=== PATIENT | male | born 1970 | race Caucasian/White ===

== ENCOUNTER 2018-02-17 01:01 | Emergency (ER) | payer MEDICAID ==
[2018-02-17 01:09] VITALS: BP 113/81
--- NOTE | 2018-02-17 01:13 | ER Report ---
History and Physical Time Seen By MD: 01:06 HPI/ROS CHIEF COMPLAINT: Foot swelling HISTORY OF PRESENT ILLNESS: Patient is a 47-year-old male who presents to the emergency department with complaint of left foot pain. Patient states that he was doing some moving earlier this morning. He states that while he was moving boxes he tripped over a carpet and felt a pop and snap in the dorsal aspect of his left foot. Patient states he is painful weightbearing but is able to ambulate. Patient states that he has not taken anything for pain. He states he has a past medical history for COPD that is oxygen dependent as well as type II diabetes. REVIEW OF SYSTEMS: Respiratory: No cough, no dyspnea. Cardiovascular: No chest pain, no palpitations. Gastrointestinal: No vomiting, no abdominal pain. Musculoskeletal: Left foot pain Allergies: Coded Allergies: shellfish derived (Verified Allergy, Severe, THROAT SWELLING, 02/17/18) montelukast (Verified Allergy, Intermediate, SINUS INFECTIONS, 02/17/18) Home Meds Reported Medications Furosemide (LASIX) 20 Mg Tablet, 1 TAB PO QDAY, TAB 02/17/18 Metformin Hcl (METFORMIN HCL) 1,000 Mg Tablet, 1 TAB PO BID, TAB 02/17/18 Tiotropium [place] (SPIRIVA) 18 Mcg/Cap Inh, 18 MCG INH QDAY, INH 02/17/18 Albuterol Sulfate 0.083% (ALBUTEROL SULFATE 0.083%) 2.5 Mg/3 Ml Vial.neb, 2.5 MG INH PRN, INH 02/17/18 Albuterol Sulfate 90 Mcg/Act (PROAIR HFA 90 MCG/ACT) 8.5 Gm Hfa.aer.ad, 2 PUFF IH Q4-6H Y for SHORTNESS OF BREATH, INHALER 02/17/18 Past Medical/Surgical History COPD, type II diabetes Constitutional Vital Sign - Last 24 Hours 02/17/18 01:09 Temp 97.9 Pulse 93 Resp 24 Pulse Ox 92 O2 Delivery Nasal Cannula Physical Exam General appearance: alert no distress Left ankle: There is no significant swelling. There is no obvious deformity to the ankle. There is mild tenderness to the lateral malleolus. Ankle joint is stable and there is no tenderness over the achilles tendon. The foot is noted for swelling and severe onychomycosis. Patient is tender along the 1st and 2nd metatarsal area. Neurologic exam: The patient has normal sensation distal to the injury. Vascular exam: Decreased capillary refill to both feet Patient has bilateral 4+ pitting edema to both lower extremities. DIFFERENTIAL DIAGNOSIS: After history and physical exam differential diagnosis was considered for ankle injury including sprain, fracture, dislocation and soft tissue injury. Medical Decision Making EKG/Imaging Imaging FACILITY: [facility] [place] PATIENT NAME: Neo Diaz : 1970 MR: [id number] V: [id number] EXAM DATE: ORDERING PHYSICIAN: TETE MARIN TECHNOLOGIST: [place] [facility] [place] Neo Diaz : 1970 Visit/Account:[id number] Date of Sevice: 02/17/2018 INDICATION: Pain and swelling for months. EXAM DATE: 02/17/2018 1:13 AM COMPARISON: None. FINDINGS: 3 views left foot, 3 views left ankle. Mineralization is normal. No acute alignment abnormality or fracture. Diffuse soft tissue swelling. No radiopaque foreign body or soft tissue emphysema. IMPRESSION: Diffuse soft tissue swelling with no acute osseous abnormality of the right ankle and foot. Report Dictated By: Mandeep Gutierrez MD at 02/17/2018 1:48 AM Report E-Signed By: Mandeep Gutierrez MD at 02/17/2018 1:50 AM WSN:[id number] FACILITY: [facility] [place] PATIENT NAME: Neo Diaz : 1970 MR: [id number] V: [id number] EXAM DATE: ORDERING PHYSICIAN: TETE MARIN TECHNOLOGIST: Location: [facility] [place] Patient: Neo Diaz : 1970 Visit/Account:[id number] Date of Sevice: 02/17/2018 INDICATION: Pain and swelling for months. EXAM DATE: 02/17/2018 1:13 AM COMPARISON: None. FINDINGS: 3 views left foot, 3 views left ankle. Mineralization is normal. No acute alignment abnormality or fracture. Diffuse soft tissue swelling. No radiopaque foreign body or soft tissue emphysema. IMPRESSION: Diffuse soft tissue swelling with no acute osseous abnormality of the right ankle and foot. Report Dictated By: Mandeep Gutierrez MD at 02/17/2018 1:48 AM Report E-Signed By: Mandeep Gutierrez MD at 02/17/2018 1:50 AM WSN:[id number] ED Course/Re-evaluation ED Course 02/17/2018 1:13:01 am and at this time will be to x-ray the foot and ankle. Decision to Disposition Date: Feb 17, 2018 Decision to Disposition Time: 02:07 Depart Departure Latest Vital Signs Vital Signs Date Time Temp Pulse Resp B/P (MAP) Pulse Ox O2 Delivery O2 Flow Rate FiO2 02/17/18 01:09 97.9 93 24 92 Nasal Cannula Impression: Primary Impression: Foot sprain Condition: Improved Disposition: HOME OR SELF-CARE Patient Instructions: Foot Sprain (ED) Problem Qualifiers Primary Impression: Foot sprain Encounter type: initial encounter Laterality: left Qualified Codes: S93.602A - Unspecified sprain of left foot, initial encounter TETE MARIN MD Feb 17, 2018 01:13
[2018-02-17] MEDS ORDERED: APAP/HYDROCODONE 325/5 TAB PO ONE (01:15)
[2018-02-17] MEDS ORDERED: METF-421 PO (01:40)
[2018-02-17] MEDS ORDERED: FURO20TA19 PO (01:40)
[2018-02-17] MEDS ORDERED: ALBU8.5H IH (01:40)
[2018-02-17] MEDS ORDERED: TIO18R INH (01:40)
[2018-02-17] MEDS ORDERED: ALBU2.5V36 INH (01:40)
--- NOTE | 2018-02-17 01:54 | RADIOLOGY IMAGING REPORT ---
FACILITY: [facility] [place] PATIENT NAME: Neo Diaz : 1970 MR: [id number] V: [id number] EXAM DATE: ORDERING PHYSICIAN: TETE MARIN TECHNOLOGIST: Location: [facility] Patient: Neo Diaz : 1970 Visit/Account:[id number] Date of Sevice: 02/17/2018 INDICATION: Pain and swelling for months. EXAM DATE: 02/17/2018 1:13 AM COMPARISON: None. FINDINGS: 3 views left foot, 3 views left ankle. Mineralization is normal. No acute alignment abnormality or fr acture. Diffuse soft tissue swelling. No radiopaque foreign body or soft tissue emphysema. IMPRESSION: Diffuse soft tissue swelling with no acute osseous abnormality of the right ankle and fo ot. Report Dictated By: Mandeep Gutierrez MD at 02/17/2018 1:48 AM Report E-Signed By: Mandeep Gutierrez MD at 02/17/2018 1:50 AM WSN:[id number]
--- NOTE | 2018-02-17 01:55 | RADIOLOGY IMAGING REPORT ---
FACILITY: [facility] - [place] PATIENT NAME: Neo Diaz : 1970 MR: [id number] V: [id number] EXAM DATE: ORDERING PHYSICIAN: TETE MARIN TECHNOLOGIST: [place] [facility] [place] : 1970 Visit/Account:[id number] Date of Sevice: 02/17/2018 INDICATION: Pain and swelling for months. EXAM DATE: 02/17/2018 1:13 AM COMPARISON: None. FINDINGS: 3 views left foot, 3 views left ankle. Mineralization is normal. No acute alignment abnormality or fr acture. Diffuse soft tissue swelling. No radiopaque foreign body or soft tissue emphysema. IMPRESSION: Diffuse soft tissue swelling with no acute osseous abnormality of the right ankle and fo ot. Report Dictated By: Mandeep Gutierrez MD at 02/17/2018 1:48 AM Report E-Signed By: Mandeep Gutierrez MD at 02/17/2018 1:50 AM WSN:[id number]
[2018-02-17] MEDS ORDERED: oxyCODONE/ACETAMIN 5/325MG TH 2 TAB/BOTTLE PO ONE (02:10)
== END 2018-02-17 02:18 | disposition home or self-care (01) ==
LOC: ER 01:08
DX: S93.602A Unspecified sprain of left foot, initial encounter (principal)
CPT/HCPCS: 99283

== ENCOUNTER → 2018-02-24 | Outpatient (CLI) | payer MEDICAID ==
[~2018-02-24] MED LIST: ALBU2.5V36 INH; ALBU8.5H IH; FURO20TA19 PO; METF-421 PO; ONDA4TAB PO; POTA99TA6 PO; PRED20TA6 PO; TIO18R INH
[2018-02-24 11:44] LABS: PLATELET COUNT, AUTOMATED 302 K/uL (150-450)
[2018-02-24 11:46] LABS: LDL CHOLESTEROL 58 mg/dl
== END ==
LOC: LAB 11:12
PROVIDERS: ATTEND Nurse Practitioner Psychiatric/Mental Health
DX: E13.65 Other specified diabetes mellitus with hyperglycemia (principal); E78.5 Hyperlipidemia, unspecified; R60.9 Edema, unspecified; I10 Essential (primary) hypertension
CPT/HCPCS: 36415; 82040; 82247; 82310; 82374; 82435; 82465; 82565; 82947; 83036; 83718; 84075; 84132; 84155; 84295; 84450; 84460; 84478; 84520; 85025

== ENCOUNTER 2018-02-27 23:03 | Emergency (ER) | payer MEDICAID ==
[~2018-02-27 23:03] MED LIST changes: -ONDA4TAB PO; -POTA99TA6 PO; -PRED20TA6 PO
[2018-02-27] MEDS ORDERED: POTA99TA6 PO (23:18)
--- NOTE | 2018-02-27 23:23 | ER Report ---
History and Physical Time Seen By MD: 23:22 Hx. of Stated Complaint: patient states he has been having abdominal pain, diarrhea, patient states feels like he can't get enough water, and is feeling a little short of breath. HPI/ROS CHIEF COMPLAINT: Epigastric pain, difficulty breathing. Rescue diarrhea HISTORY OF PRESENT ILLNESS: 47-year-old male with O2 dependent COPD on 4 L, epigastric pain and diarrhea. Patient notes mild nausea. Patient's been having diarrhea for 3 days. He's had increased shortness of breath for 3 days. He notes left upper quadrant and left lower quadrant pain. Patient denies recent travel exposure to ill contacts or consumption of bad food. He notes recently that he's been on 2 courses of antibiotics for treatment of cellulitis. The diarrhea could be Clostridium difficile. Patient notes no fever, chills or productive cough associated with shortness of breath. REVIEW OF SYSTEMS: Respiratory: As above Cardiovascular: No chest pain, no palpitations. Gastrointestinal: As above Musculoskeletal: No back pain. Allergies: Coded Allergies: shellfish derived (Verified Allergy, Severe, THROAT SWELLING, 02/27/18) montelukast (Verified Allergy, Intermediate, SINUS INFECTIONS, 02/27/18) Home Meds Active Scripts Prednisone (PREDNISONE) 20 Mg Tablet, 20 MG PO QDAY for reduce lung inflammation for 7 Days, #5 Prov:RUBÉN STRONG DO 02/28/18 Ondansetron (ZOFRAN ODT) 4 Mg Tab.rapdis, 4 MG PO every 6 hours Y for NAUSEA/ VOMITING, #10 TAB TAKE 1 TABLET BY MOUTH EVERY 12 HOURS Prov:RUBÉN STRONG DO 02/28/18 Reported Medications Potassium Gluconate (POTASSIUM) 99 Mg Tablet, PO QDAY 02/27/18 Furosemide (LASIX) 20 Mg Tablet, 2 TAB PO QDAY, TAB 02/17/18 Metformin Hcl (METFORMIN HCL) 1,000 Mg Tablet, 1 TAB PO BID, TAB 02/17/18 Tiotropium [place] (SPIRIVA) 18 Mcg/Cap Inh, 18 MCG INH QDAY, INH 02/17/18 Albuterol Sulfate 0.083% (ALBUTEROL SULFATE 0.083%) 2.5 Mg/3 Ml Vial.neb, 2.5 MG INH PRN, INH 02/17/18 Albuterol Sulfate 90 Mcg/Act (PROAIR HFA 90 MCG/ACT) 8.5 Gm Hfa.aer.ad, 2 PUFF IH Q4-6H Y for SHORTNESS OF BREATH, INHALER 02/17/18 Past Medical/Surgical History O2 dependent COPD, type II diabetes on metformin Reviewed Nurses Notes: Yes Old Medical Records Reviewed: Yes Constitutional Vital Sign - Last 24 Hours 02/27/18 02/27/18 02/27/18 02/27/18 22:30 22:30 23:14 23:14 Pulse 87 Resp 18 Pulse Ox 91 O2 Delivery Nasal Cannula Room Air O2 Flow Rate 4.0 3.0 02/27/18 02/27/18 02/27/18 02/27/18 23:18 23:30 23:33 23:39 Pulse 90 91 94 Resp 18 B/P (MAP) 144/91 (108) Pulse Ox 94 98 02/28/18 02/28/18 02/28/18 02/28/18 00:00 00:18 00:30 00:33 Pulse ??? 95 Resp 12 12 B/P (MAP) 127/68 (87) 134/75 (94) Pulse Ox 87 93 02/28/18 02/28/18 02/28/18 02/28/18 00:48 01:00 01:03 01:08 Pulse 98 97 103 Resp 21 13 B/P (MAP) 114/66 (82) Pulse Ox 92 95 Physical Exam Vital signs stable, afebrile, pulse ox normal General Appearance: The patient is alert, has no immediate need for airway protection and no current signs of toxicity. Mild respiratory distress, mild discomfort, skin warm, dry, pink HEENT: Pupils equal and round no injection. TMs normal, oropharynx without redness or exudate Respiratory: Chest is non tender, lungs are clear to auscultation. Faint expiratory wheezing, poor inspiratory effort Cardiac: regular rate and rhythm Gastrointestinal: Abdomen is soft mild epigastric tenderness, no rebound or guarding, no masses, bowel sounds normal. Musculoskeletal: Neck: Neck is supple and non tender. No lymphadenopathy, no JVD Extremities have full range of motion and are non tender. No edema, no cellulitis, no calf tenderness Skin: No rashes or lesions. DIFFERENTIAL DIAGNOSIS: After history and physical exam differential diagnosis was considered for abdominal pain including but not limited to appendicitis, cholecystitis, gastritis, gastritis, food poisoning, viral syndrome, Clostridium difficile and urinary tract infection. Additionally,shortness of breath including but not limited to pulmonary infectious process, COPD, asthma, pulmonary embolus and congestive heart failure. Medical Decision Making Data Points Result Diagram: 02/27/18 5507 02/27/18 9577 Laboratory Hematology Test 02/27/18 23:07 02/27/18 23:57 Urine Color Yellow Urine Clarity Clear Urine pH 5.0 pH (4.8-9.5) Urine Specific [place] 1.018 Urine Protein Negative mg/dL (NEGATIVE) Urine Glucose (UA) Negative mg/dL (NEGATIVE) Urine Ketones Negative mg/dL (NEGATIVE) Urine Blood Small (NEGATIVE) Urine Nitrite Negative (NEGATIVE) Urine Bilirubin Negative (NEGATIVE) Urine Urobilinogen Negative mg/dL (0.2-1.9) Urine Leukocyte Esterase Negative (NEGATIVE) Urine RBC 1 /HPF (0-2/HPF) Urine WBC 1 /HPF (0-5/HPF) Urine Squamous Epithelial Cells Few /LPF (</=FEW) Urine Transitional Epithelial Cells Few /LPF (NONE-FEW) Urine Bacteria Negative /HPF (NONE-FEW) Urine Mucus Few /HPF (NONE-FEW) Red Blood Count 5.20 M/uL (4.00-5.60) Mean Corpuscular Volume 83.3 fL (80.0-96.0) Mean Corpuscular Hemoglobin 28.0 pg (26.0-33.0) Mean Corpuscular Hemoglobin Concent 33.6 g/dL (32.0-36.0) Red Cell Distribution Width 16.0 % (11.5-14.5) Mean Platelet Volume 7.9 fL (7.2-11.1) Neutrophils (%) (Auto) 70.4 % (39.4-72.5) Lymphocytes (%) (Auto) 20.8 % (17.6-49.6) Monocytes (%) (Auto) 5.3 % (4.1-12.4) Eosinophils (%) (Auto) 3.0 % (0.4-6.7) Basophils (%) (Auto) 0.5 % (0.3-1.4) Nucleated RBC Relative Count (auto) 0.1 /100WBC Neutrophils # (Auto) 7.1 K/uL (2.0-7.4) Lymphocytes # (Auto) 2.1 K/uL (1.3-3.6) Monocytes # (Auto) 0.5 K/uL (0.3-1.0) Eosinophils # (Auto) 0.3 K/uL (0.0-0.5) Basophils # (Auto) 0.0 K/uL (0.0-0.1) Nucleated RBC Absolute Count (auto) 0.01 K/uL Sodium Level 143 mmol/L (137-145) Potassium Level 3.7 mmol/L (3.5-5.0) Chloride Level 100 mmol/L (98-107) Carbon Dioxide Level 34 mmol/L (22-30) Blood Urea Nitrogen 15 mg/dl (9-21) Creatinine 1.10 mg/dl (0.66-1.25) Glomerular Filtration Rate Calc > 60.0 Random Glucose 195 mg/dl (75-110) Calcium Level 8.9 mg/dl (8.4-10.2) Total Bilirubin 0.5 mg/dl (0.2-1.3) Aspartate Amino Transf (AST/SGOT) 38 U/L (0-35) Alanine Aminotransferase (ALT/SGPT) 39 U/L (0-56) Alkaline Phosphatase 97 U/L (0-126) Troponin I < 0.012 ng/ml B-Type Natriuretic Peptide 6 pg/ml (0-100) Total Protein 8.4 g/dl (6.3-8.2) Albumin 4.2 g/dl (3.5-5.0) Amylase Level 73 U/L (0-110) Lipase 134 U/L (23-300) Chemistry Test 02/27/18 23:07 02/27/18 23:57 Urine Color Yellow Urine Clarity Clear Urine pH 5.0 pH (4.8-9.5) Urine Specific [place] 1.018 Urine Protein Negative mg/dL (NEGATIVE) Urine Glucose (UA) Negative mg/dL (NEGATIVE) Urine Ketones Negative mg/dL (NEGATIVE) Urine Blood Small (NEGATIVE) Urine Nitrite Negative (NEGATIVE) Urine Bilirubin Negative (NEGATIVE) Urine Urobilinogen Negative mg/dL (0.2-1.9) Urine Leukocyte Esterase Negative (NEGATIVE) Urine RBC 1 /HPF (0-2/HPF) Urine WBC 1 /HPF (0-5/HPF) Urine Squamous Epithelial Cells Few /LPF (</=FEW) Urine Transitional Epithelial Cells Few /LPF (NONE-FEW) Urine Bacteria Negative /HPF (NONE-FEW) Urine Mucus Few /HPF (NONE-FEW) White Blood Count 10.1 k/uL (4.5-11.0) Red Blood Count 5.20 M/uL (4.00-5.60) Hemoglobin 14.6 g/dL (14.0-18.0) Hematocrit 43.3 % (42.0-52.0) Mean Corpuscular Volume 83.3 fL (80.0-96.0) Mean Corpuscular Hemoglobin 28.0 pg (26.0-33.0) Mean Corpuscular Hemoglobin Concent 33.6 g/dL (32.0-36.0) Red Cell Distribution Width 16.0 % (11.5-14.5) Platelet Count 329 K/uL (150-450) Mean Platelet Volume 7.9 fL (7.2-11.1) Neutrophils (%) (Auto) 70.4 % (39.4-72.5) Lymphocytes (%) (Auto) 20.8 % (17.6-49.6) Monocytes (%) (Auto) 5.3 % (4.1-12.4) Eosinophils (%) (Auto) 3.0 % (0.4-6.7) Basophils (%) (Auto) 0.5 % (0.3-1.4) Nucleated RBC Relative Count (auto) 0.1 /100WBC Neutrophils # (Auto) 7.1 K/uL (2.0-7.4) Lymphocytes # (Auto) 2.1 K/uL (1.3-3.6) Monocytes # (Auto) 0.5 K/uL (0.3-1.0) Eosinophils # (Auto) 0.3 K/uL (0.0-0.5) Basophils # (Auto) 0.0 K/uL (0.0-0.1) Nucleated RBC Absolute Count (auto) 0.01 K/uL Glomerular Filtration Rate Calc > 60.0 Calcium Level 8.9 mg/dl (8.4-10.2) Total Bilirubin 0.5 mg/dl (0.2-1.3) Aspartate Amino Transf (AST/SGOT) 38 U/L (0-35) Alanine Aminotransferase (ALT/SGPT) 39 U/L (0-56) Alkaline Phosphatase 97 U/L (0-126) Troponin I < 0.012 ng/ml B-Type Natriuretic Peptide 6 pg/ml (0-100) Total Protein 8.4 g/dl (6.3-8.2) Albumin 4.2 g/dl (3.5-5.0) Amylase Level 73 U/L (0-110) Lipase 134 U/L (23-300) Urinalysis Test 02/27/18 23:07 Urine Color Yellow Urine Clarity Clear Urine pH 5.0 pH (4.8-9.5) Urine Specific [place] 1.018 Urine Protein Negative mg/dL (NEGATIVE) Urine Glucose (UA) Negative mg/dL (NEGATIVE) Urine Ketones Negative mg/dL (NEGATIVE) Urine Blood Small (NEGATIVE) Urine Nitrite Negative (NEGATIVE) Urine Bilirubin Negative (NEGATIVE) Urine Urobilinogen Negative mg/dL (0.2-1.9) Urine Leukocyte Esterase Negative (NEGATIVE) Urine RBC 1 /HPF (0-2/HPF) Urine WBC 1 /HPF (0-5/HPF) Urine Squamous Epithelial Cells Few /LPF (</=FEW) Urine Transitional Epithelial Cells Few /LPF (NONE-FEW) Urine Bacteria Negative /HPF (NONE-FEW) Urine Mucus Few /HPF (NONE-FEW) EKG/Imaging EKG Interpretation 12 lead EK Rhythm: normal sinus rhythm [place]: normal QRS: normal ST segments: normal, no evidence of ischemia or dysrhythmia Imaging X-ray: Two-view chest x-ray was obtained. I viewed the images myself on the PACS system. My interpretation of the images is: No infiltrate, no effusion, normal mediastinum, incidental pulmonary nodule noted. Patient was given a copy of his x-ray report and advised to follow-up with his primary care for a CT with contrast to evaluate this nodule.. The radiologist interpretation had no clinically significant variation from this interpretation. ED Course/Re-evaluation Clinical Indication for ER IV: Hydration, IV Access ED Course Patient was admitted to an examination room. H&P was done. The differential diagnoses was considered. On clinical examination, patient appears slightly short of breath. He is complaining more of left upper quadrant and left lower quadrant abdominal pain associated with diarrhea and cramping. Patient notes a mild nausea but no vomiting. He's had no fever or chills. Patient's received 2 recent courses of antibiotics for cellulitis of his lower extremities. I'm suspicious he has clots removed. Silver diarrhea. I think his COPD is exacerbated. He is given Solu-Medrol IV, 1 L saline, Zofran, and a DuoNeb. His EKG is unremarkable. Diagnostic studies or further unremarkable. There is an elevated CO2 of 34, suggesting CO2 retention. Patient's unable to provide a specimen of diarrhea for analysis of C. difficile toxin. Patient advised a clear liquid night for 48 hours, to rest his bowels. Patient's given a prednisone burst of 20 per day for 5 days. Patient is given a prescription of Zofran to control his nausea. He is advised to follow-up with his primary care physician if unimproved in 3-5 days. Decision to Disposition Date: Feb 28, 2018 Decision to Disposition Time: 00:31 Depart Departure Latest Vital Signs Vital Signs Date Time Temp Pulse Resp B/P (MAP) Pulse Ox O2 Delivery O2 Flow Rate FiO2 02/28/18 01:08 103 13 95 02/28/18 01:00 114/66 (82) 02/27/18 23:14 3.0 02/27/18 23:14 Room Air Impression: Primary Impression: Diarrhea Additional Impression: COPD exacerbation Condition: Improved Disposition: HOME OR SELF-CARE Referrals: STIVEN MACEDO MD, FARRUKH MD New Scripts Prednisone (PREDNISONE) 20 Mg Tablet 20 MG PO QDAY for reduce lung inflammation for 7 Days, #5 Prov: RUBÉN STRONG DO 02/28/18 Ondansetron (ZOFRAN ODT) 4 Mg Tab.rapdis 4 MG PO every 6 hours Y for NAUSEA/VOMITING, #10 TAB TAKE 1 TABLET BY MOUTH EVERY 12 HOURS Prov: RUBÉN STRONG DO 02/28/18 Patient Instructions: Acute Diarrhea (ED), COPD (Chronic Obstructive Pulmonary Disease) (ED), Clear Liquid Diet (ED) Additional Instructions: Follow clear liquid diet for 48 hours Follow-up with your primary care physician take a specimen of diarrhea for analysis. They need to rule out Clostridium difficile infection. Since she were on antibiotics recently May follow-up with the physician listed on the paperwork a few are unable to follow-up with your primary care doctor. Problem Qualifiers Primary Impression: Diarrhea Diarrhea type: unspecified type Qualified Codes: R19.7 - Diarrhea, unspecified RUBÉN STRONG DO Feb 27, 2018 23:22
[2018-02-27] MEDS ORDERED: ONDANSETRON 4 MG/2 ML VIAL IVP ONE (23:25)
[2018-02-27] MEDS ORDERED: methylPREDNIS SUCC 125 MG/2ML IVP ONE (23:25)
[2018-02-27] MEDS ORDERED: NS(*) 0.9% 1000 ML BAG 1,000 ML IV ONE (23:25)
[2018-02-27] MEDS ORDERED: ALBUTEROL/IPRATROPIUM 3 ML NEB NEB ONE (23:25)
[2018-02-28 00:29] LABS: PLATELET COUNT, AUTOMATED 329 K/uL (150-450)
--- NOTE | 2018-02-28 00:44 | RADIOLOGY IMAGING REPORT ---
FAC[place] [facility] [place]IENT NAME: Neo Diaz : 1970 MR: [id number] V: [id number] EXAM DATE: ORDERING PHYSICIAN: RUBÉN STRONG TECHNOLOGIST: Location: [facility] Patient: Neo Diaz : 1970 Visit/Account:[id number] Date of Sevice: 02/27/2018 CHEST: Indication: Respiratory distress. Technique: Frontal and lateral views were obtained. Comparison: None. Skeletal and soft tissue structures: Intact and unremarkable. Heart and mediastinum: Within normal limits. Lung grande: Well-expanded. There are no signs of parenchymal consolidation or volume loss. There is a nodular opacity in the left lung apex, measuring 1.4 cm, of indeterminant clinical significance. No other nodular opacities are identified. Follow-up evaluation with CT of the chest is recommended. Pleural spaces: Unremarkable. Impression: No evidence of parenchymal consolidation or volume loss. There is a 1.4 cm nodular opacit y in the left lung apex, of indeterminant clinical significance. Follow-up evaluation with CT is jackie mmended. Report Dictated By: Balta Hall MD at 02/28/2018 12:34 AM Report E-Signed By: Balta Hall MD at 02/28/2018 12:39 AM WSN:[id number]
[2018-02-28 01:00] VITALS: BP 114/66
[2018-02-28] MEDS ORDERED: PRED20TA6 PO (01:06)
[2018-02-28] MEDS ORDERED: ONDA4TAB PO (01:06)
[2018-02-28] MEDS ORDERED: ONDANSETRON 4 MG ODT TH SL ONE (01:10)
--- NOTE | 2018-02-28 04:59 | EKG ---
FACILITY: [facility] PATIENT NAME: MABEL BAUTISTA : [id number] MR: [id number] V: [id number] EXAM DATE: ORDERING PHYSICIAN: RUBÉN STRONG TECHNOLOGIST: JOSEY Posada Reason : Blood Pressure : / mmHG Vent. Rate : 093 BPM Atrial Rate : 093 BPM P-R Int : 156 ms QRS Dur : 084 ms QT Int : 354 ms P-R-T Axes : 048 039 045 degrees QTc Int : 440 ms Sinus rhythm Artifact in several leads - repeat if needed No previous ECGs available Confirmed by VIOLETA MCKENNA ([id number] on 02/28/2018 6:20:46 AM Referred By: Confirmed By:VIOLETA MCKENNA
== END 2018-02-28 01:23 | disposition home or self-care (01) ==
LOC: ER 23:26
DX: J44.9 Chronic obstructive pulmonary disease, unspecified (principal); R19.7 Diarrhea, unspecified
CPT/HCPCS: 71046; 81001; 82150; 83690; 83880; 84484; 85025; 93005; 94640; 96361; 96374; 96375; 99284; J2405; J2930; J7030; J7620; S0119; 82040; 82247; 82310; 82374; 82435; 82565; 82947; 84075; 84132; 84155; 84295; 84450; 84460; 84520

== ENCOUNTER 2018-03-01 20:54 | Inpatient (IN) | payer MEDICAID ==
[~2018-03-01] VITALS: Ht 185.4 cm; Wt 176.1 kg
[~2018-03-01 20:54] MED LIST changes: -FURO-47 PO; -METF-411 PO; -OXYGENHOME INH; -POTA-53 PO
[2018-03-01] MEDS ORDERED: methylPREDNIS SUCC 125 MG/2ML IVP ONE (21:00)
[2018-03-01 21:07] LABS: PLATELET COUNT, AUTOMATED 445 K/uL (150-450)
[2018-03-01] MEDS ORDERED: KETAMINE HCL 500 MG/5 ML VIAL IVP ONE (21:10)
[2018-03-01] MEDS ORDERED: NS 0.9% IV ONE (21:35)
[2018-03-01] MEDS ORDERED: PIPERACILLIN/TAZO*3.375GM VIAL 3.375 GM in NS(*) 0.9% 100 ML ADDVANT BAG 100 ML IVPB ONE (21:35)
[2018-03-01] MEDS ORDERED: VANCOMYCIN 1 GM ADDVIAL 1 GM in NS(*) 0.9% 250 ML ADDVAN BAG 250 ML IVPB ONE (21:35)
[2018-03-01] MEDS ORDERED: LEVOPHED KIT (*) 1 IVSOL 1 KIT IV ONE (21:45)
[2018-03-01] MEDS ORDERED: ALBUTEROL/IPRATROPIUM 3 ML NEB ONE (22:21)
--- NOTE | 2018-03-01 22:28 | ER Report ---
History and Physical Time Seen By MD: 21:10 HPI/ROS CHIEF COMPLAINT: Hypoxia, altered mental status HISTORY OF PRESENT ILLNESS: Patient is a 47-year-old male presents the ED with complaint of hypoxia and altered mental status. He is brought in by EMS who states that the patient has a sling been unresponsive to them and they were not able to get an oxygen saturation on him initially. They did give him nebulizer treatment en route. Patient is unable to give any history. He has obvious increased work of breathing and intercostal retractions. He is currently on a nonrebreather with albuterol neb running. Patient was seen in the emergency department 2 days ago for a COPD exacerbation and gastroenteritis/colitis. REVIEW OF SYSTEMS: Unable to obtain due to mental status Allergies: Coded Allergies: shellfish derived (Verified Allergy, Severe, THROAT SWELLING, 02/28/18) montelukast (Verified Allergy, Intermediate, SINUS INFECTIONS, 02/28/18) Home Meds Active Scripts Prednisone (PREDNISONE) 20 Mg Tablet, 20 MG PO QDAY for reduce lung inflammation for 7 Days, #5 Prov:RUBÉN STRONG DO 02/28/18 Ondansetron (ZOFRAN ODT) 4 Mg Tab.rapdis, 4 MG PO every 6 hours Y for NAUSEA/ VOMITING, #10 TAB TAKE 1 TABLET BY MOUTH EVERY 12 HOURS Prov:RUBÉN STRONG DO 02/28/18 Reported Medications Potassium Gluconate (POTASSIUM) 99 Mg Tablet, PO QDAY 02/27/18 Furosemide (LASIX) 20 Mg Tablet, 2 TAB PO QDAY, TAB 02/17/18 Metformin Hcl (METFORMIN HCL) 1,000 Mg Tablet, 1 TAB PO BID, TAB 02/17/18 Tiotropium Spicer (SPIRIVA) 18 Mcg/Cap Inh, 18 MCG INH QDAY, INH 02/17/18 Albuterol Sulfate 0.083% (ALBUTEROL SULFATE 0.083%) 2.5 Mg/3 Ml Vial.neb, 2.5 MG INH PRN, INH 02/17/18 Albuterol Sulfate 90 Mcg/Act (PROAIR HFA 90 MCG/ACT) 8.5 Gm Hfa.aer.ad, 2 PUFF IH Q4-6H Y for SHORTNESS OF BREATH, INHALER 02/17/18 Reviewed Nurses Notes: Yes Old Medical Records Reviewed: Yes Constitutional Vital Sign - Last 24 Hours 03/01/18 21:15 FiO2 100.0 Physical Exam General Appearance: The patient is awake but not really alert. Patient appears to be in respiratory distress. Patient is quite warm to touch. He does not respond to any verbal commands. Eyes: Pupils equal and round no pallor or injection. ENT, Mouth: Mucous membranes are moist. Respiratory: There is bilateral wheezing and decreased breath sounds. He appears to have some intercostal retractions. Increased work of breathing. Tachypnea. Cardiovascular: Tachycardic and regular rhythm. Gastrointestinal: Abdomen is soft and non tender, no masses, bowel sounds normal. Neurological: GCS of 10. Skin: Warm and dry, no rashes. Musculoskeletal: Neck is supple non tender. Extremities are nontender, nonswollen and have full range of motion. DIFFERENTIAL DIAGNOSIS: After history and physical exam differential diagnosis was considered for shortness of breath including but not limited to pulmonary infectious process, COPD, asthma, pulmonary embolus and congestive heart failure. Medical Decision Making Data Points Result Diagram: 03/01/18203903/01/182039 Laboratory Hematology Test 03/01/18 20:40 03/01/18 22:15 Red Blood Count 5.36 M/uL (4.00-5.60) Mean Corpuscular Volume 86.7 fL (80.0-96.0) Mean Corpuscular Hemoglobin 28.0 pg (26.0-33.0) Mean Corpuscular Hemoglobin Concent 32.3 g/dL (32.0-36.0) Red Cell Distribution Width 16.8 % (11.5-14.5) Mean Platelet Volume 7.9 fL (7.2-11.1) Neutrophils (%) (Auto) 73.9 % (39.4-72.5) Lymphocytes (%) (Auto) 16.5 % (17.6-49.6) Monocytes (%) (Auto) 9.3 % (4.1-12.4) Eosinophils (%) (Auto) 0.0 % (0.4-6.7) Basophils (%) (Auto) 0.3 % (0.3-1.4) Nucleated RBC Relative Count (auto) 1.6 /100WBC Neutrophils # (Auto) 14.3 K/uL (2.0-7.4) Lymphocytes # (Auto) 3.2 K/uL (1.3-3.6) Monocytes # (Auto) 1.8 K/uL (0.3-1.0) Eosinophils # (Auto) 0.0 K/uL (0.0-0.5) Basophils # (Auto) 0.1 K/uL (0.0-0.1) Nucleated RBC Absolute Count (auto) 0.30 K/uL Peripheral Blood Smear Yes Y/N D-Dimer Quantitative (PE/DVT) 0.73 ug/ml (0-0.50) Sodium Level 144 mmol/L (137-145) Potassium Level 5.1 mmol/L (3.5-5.0) Chloride Level 102 mmol/L (98-107) Carbon Dioxide Level 27 mmol/L (22-30) Blood Urea Nitrogen 28 mg/dl (9-21) Creatinine 1.70 mg/dl (0.66-1.25) Glomerular Filtration Rate Calc 43.2 Random Glucose 212 mg/dl (75-110) Lactate 5.2 mmol/L (0.7-2.1) Calcium Level 8.6 mg/dl (8.4-10.2) Total Bilirubin 0.6 mg/dl (0.2-1.3) Aspartate Amino Transf (AST/SGOT) 129 U/L (0-35) Alanine Aminotransferase (ALT/SGPT) 84 U/L (0-56) Alkaline Phosphatase 102 U/L (0-126) Troponin I 0.062 ng/ml C-Reactive Protein 3.4 mg/dl (<1.0) B-Type Natriuretic Peptide 614 pg/ml (0-100) Total Protein 8.8 g/dl (6.3-8.2) Albumin 4.5 g/dl (3.5-5.0) Blood Gas Puncture Site Left radial Blood Gas Patient Temperature 100.3 DEGREES Arterial Blood pH 7.18 (7.35-7.45) Arterial Blood Partial Pressure CO2 77 mmHg (32-37) Arterial Blood Partial Pressure O2 68 mmHg (60-80) Arterial Blood HCO3 28 mmol/L (20-26) Arterial Blood Oxygen Saturation 85 % (92-100) Arterial Blood Base Excess 0.0 mmol/L Shree Test Nt avail Oxygen Liters/Minute 100% fio2 Chemistry Test 03/01/18 20:40 03/01/18 22:15 White Blood Count 19.3 k/uL (4.5-11.0) Red Blood Count 5.36 M/uL (4.00-5.60) Hemoglobin 15.0 g/dL (14.0-18.0) Hematocrit 46.5 % (42.0-52.0) Mean Corpuscular Volume 86.7 fL (80.0-96.0) Mean Corpuscular Hemoglobin 28.0 pg (26.0-33.0) Mean Corpuscular Hemoglobin Concent 32.3 g/dL (32.0-36.0) Red Cell Distribution Width 16.8 % (11.5-14.5) Platelet Count 445 K/uL (150-450) Mean Platelet Volume 7.9 fL (7.2-11.1) Neutrophils (%) (Auto) 73.9 % (39.4-72.5) Lymphocytes (%) (Auto) 16.5 % (17.6-49.6) Monocytes (%) (Auto) 9.3 % (4.1-12.4) Eosinophils (%) (Auto) 0.0 % (0.4-6.7) Basophils (%) (Auto) 0.3 % (0.3-1.4) Nucleated RBC Relative Count (auto) 1.6 /100WBC Neutrophils # (Auto) 14.3 K/uL (2.0-7.4) Lymphocytes # (Auto) 3.2 K/uL (1.3-3.6) Monocytes # (Auto) 1.8 K/uL (0.3-1.0) Eosinophils # (Auto) 0.0 K/uL (0.0-0.5) Basophils # (Auto) 0.1 K/uL (0.0-0.1) Nucleated RBC Absolute Count (auto) 0.30 K/uL Peripheral Blood Smear Yes Y/N D-Dimer Quantitative (PE/DVT) 0.73 ug/ml (0-0.50) Glomerular Filtration Rate Calc 43.2 Lactate 5.2 mmol/L (0.7-2.1) Calcium Level 8.6 mg/dl (8.4-10.2) Total Bilirubin 0.6 mg/dl (0.2-1.3) Aspartate Amino Transf (AST/SGOT) 129 U/L (0-35) Alanine Aminotransferase (ALT/SGPT) 84 U/L (0-56) Alkaline Phosphatase 102 U/L (0-126) Troponin I 0.062 ng/ml C-Reactive Protein 3.4 mg/dl (<1.0) B-Type Natriuretic Peptide 614 pg/ml (0-100) Total Protein 8.8 g/dl (6.3-8.2) Albumin 4.5 g/dl (3.5-5.0) Blood Gas Puncture Site Left radial Blood Gas Patient Temperature 100.3 DEGREES Arterial Blood pH 7.18 (7.35-7.45) Arterial Blood Partial Pressure CO2 77 mmHg (32-37) Arterial Blood Partial Pressure O2 68 mmHg (60-80) Arterial Blood HCO3 28 mmol/L (20-26) Arterial Blood Oxygen Saturation 85 % (92-100) Arterial Blood Base Excess 0.0 mmol/L Shree Test Nt avail Oxygen Liters/Minute 100% fio2 Coagulation Test 03/01/18 20:40 D-Dimer Quantitative (PE/DVT) 0.73 ug/ml EKG/Imaging EKG Interpretation 12 lead EKG: Rhythm: Sinus tachycardia, rate 107 bpm [place]: normal QRS: normal ST segments: No acute ST changes identified. Monitor Interpretation: Sinus Tachycardia Imaging CXR: IMPRESSION: 1. Lower lung volumes, which together with the supine positioning, likely accounts for the widened appearance of the mediastinum. 2. New left parahilar and mid to lower lung opacity may be atelectasis or pneumonia. 3. ET tube terminates 3 cm above the shweta. Report Dictated By: Magali Abrams at 03/01/2018 10:27 PM Report E-Signed By: Magali Abrams at 03/01/2018 10:30 PM ED Course/Re-evaluation Clinical Indication for ER IV: Hydration ED Course Will obtain labs, imaging, EKG, blood cultures. Patient appears to be septic sepsis protocol was initiated. Procedure: Rapid sequence intubation. Indication for the procedure was respiratory failure. The patient was preoxygenated with 97% oxygen by face mask and nasal cannula. The patient was given the following IV medications: 400 mg IV Ketamine. The patient was orally endotracheally intubated under direct visualization with a 7.5 ETT. In line stabilization was performed during the procedure. Tracheal intubation was confirmed with misting on the tube; breath sounds were auscultated equally bilaterally; appropriate color change with [place] CO2 detector. Chest X-ray shows ETT in good position. The procedure was performed by myself. Patient has sepsis protocol fluids ordered as well as vancomycin and Zosyn. He initially need to be started on a propofol drip after intubation and subsequently needed to be started on Levophed drip due to hypotension. 03/01/2018 10:25:41 pm - Discussed this patient with Dr. Humphreys, hospitalist, who will set patient under his care. It appears the patient likely has sepsis secondary to pneumonia. He does have an elevated troponin, creatinine, BNP as well. He also has mildly elevated liver enzymes. 03/01/2018 10:49:55 pm - Dr. Vasquez, surgery, is attempting to insert central line. Decision to Disposition Date: Mar 01, 2018 Decision to Disposition Time: 22:26 Depart Departure Latest Vital Signs Vital Signs Date Time Temp Pulse Resp B/P (MAP) Pulse Ox O2 Delivery O2 Flow Rate FiO2 03/01/18 21:15 100.0 Impression: Primary Impression: Sepsis due to pneumonia Additional Impressions: Respiratory failure Acute kidney injury Elevated troponin Elevated liver enzymes Condition: Improved Disposition: Admitted from ER MD Consult Note: Dr. Humphreys, Surgery Dr. Brewer, ED Dr. Vasquez, Surgery Problem Qualifiers Additional Impressions: Respiratory failure Chronicity: acute on chronic Respiratory failure complication: unspecified whether with hypoxia or hypercapnia Qualified Codes: J96.20 - Acute and chronic respiratory failure, unspecified whether with hypoxia or hypercapnia ZOHREH WYMAN PA-C Mar 01, 2018 22:28
--- NOTE | 2018-03-01 22:34 | RADIOLOGY IMAGING REPORT ---
FACILITY: [facility] PATIENT NAME: Neo Diaz : 1970 MR: [id number] V: [id number] EXAM DATE: ORDERING PHYSICIAN: ZOHREH WYMAN TECHNOLOGIST: Location: [facility] - [place] Patient: Neo Diaz : 1970 Visit/Account:[id number] Date of Sevice: 03/01/2018 CHEST SINGLE AP 03/01/2018 21:00 hours. HISTORY: Shortness of breath. Intubated. COMPARISON: 02/28/2018. TECHNIQUE: Portable supine AP view of the chest. FINDINGS: Tubes/lines/hardware: ET tube terminates 3 cm above the shweta. There are external chest leads. Pulmonary: Lung volumes are lower. There is minimal right basilar opacity, new, likely atelectasis. T here is new opacity in the left parahilar and left mid to lower lung field. The rounded opacity ident ified in the left upper lung on prior x-ray is not visualized but may be obscured. There is no pneumo thorax or pleural effusion. Cardiomediastinal: Cardiac silhouette is at the upper limits of normal. The mediastinal silhouette is now enlarged. Bones/soft tissues: No acute osseous abnormality. The visible abdomen is normal. IMPRESSION: 1. Lower lung volumes, which together with the supine positioning, likely accounts for the widened ap pearance of the mediastinum. 2. New left parahilar and mid to lower lung opacity may be atelectasis or pneumonia. 3. ET tube terminates 3 cm above the shweta. Report Dictated By: Magali Abrams at 03/01/2018 10:27 PM Report E-Signed By: Magali Abrams at 03/01/2018 10:30 PM WSN:[id number]
--- NOTE | 2018-03-01 23:48 | EKG ---
FACILITY: [facility] - [place] PATIENT NAME: MABEL BAUTISTA : [id number] MR: [id number] V: [id number] EXAM DATE: ORDERING PHYSICIAN: ZOHREH WYMAN TECHNOLOGIST: Test Reason : SOB Blood Pressure : / mmHG Vent. Rate : 107 BPM Atrial Rate : 107 BPM P-R Int : 138 ms QRS Dur : 086 ms QT Int : 338 ms P-R-T Axes : 048 060 033 degrees QTc Int : 451 ms Sinus tachycardia Otherwise normal ECG When compared with ECG of 27-FEB-2018 23:48, Previous ECG has undetermined rhythm, needs review Confirmed by HUGO MIRZA ([id number]) on 03/02/2018 6:25:16 AM Referred By: Confirmed By:HUGO MIRZA
--- NOTE | 2018-03-01 23:49 | Procedure Note ---
Central Line Procedure Note Indication for Central Line: Sepsis, pressors, IV fluids, IV meds, Cardiac monitoring Consent Signed: Yes Central Line Lumen: Triple Central Line Procedure: Chlorhexidine Prep, Sterile Drapes Applied, Sterile Dressing Applied Central Line Position: R Internal Jugular Anesthesia Used: 1% Lidocaine CC's of Anesthesia: 4 Complications: None Central Line Post Position: Sutured, Confirmed Blood Return, Position Confirmed w/CXR Comment Attempted right femoral. Could access a vein, uncertain which vein, but couldn' t thread wire. Attempted left IJ but went in to left common carotid artery. Removed catheter and applied pressure for 10 minutes. Site looked good without bleeding or hematoma. Able to access right IJ in one attempt. X-ray looks like good position. No evidence of pneumothorax by my reading. Official radiologist reading is pending. HUGO CASTRO MD Mar 01, 2018 23:06
[2018-03-02] VITALS (56 sets, daily range): BP systolic 87–124; BP diastolic 47–80; Ht 185.4 cm; Wt 176.1 kg
--- NOTE | 2018-03-02 00:10 | RADIOLOGY IMAGING REPORT ---
FACILITY: [facility] - [place], [place] PATIENT NAME: Neo Diaz : 1970 MR: [id number] V: [id number] EXAM DATE: ORDERING PHYSICIAN: MAUREEN VILLAFUERTE TECHNOLOGIST: Location: [facility] Patient: Neo Diaz : 1970 Visit/Account:[id number] Date of Sevice: 03/01/2018 CHEST SINGLE AP 03/01/2018 23:13 hours. HISTORY: Central line placement. Intubated. Septic. Pneumonia. COMPARISON: 03/01/2018 and 02/28/2018. TECHNIQUE: Portable AP view of the chest. FINDINGS: Tubes/lines/hardware: ET tube terminates 2 cm above the shweta. Right jugular catheter has been place d and terminates at the upper cavoatrial junction. There are external chest leads. Pulmonary: No change in the left infiltrate. The right lung is clear. There is no pneumothorax or ple ural effusion. Cardiomediastinal: The cardiac silhouette is enlarged, stable. The mediastinal silhouette is enlarged , stable. Bones/soft tissues: No acute osseous abnormality. The visible abdomen is normal. IMPRESSION: 1. Right jugular catheter terminates at the upper cavoatrial junction. 2. ET tube terminates 2 cm above the shweta. 3. No change in aeration of the lungs. 4. No change in the cardiac or mediastinal silhouettes. Report Dictated By: Magali Abrams at 03/02/2018 12:03 AM Report E-Signed By: Magali Abrams at 03/02/2018 12:06 AM WSN:[id number]
[2018-03-02] MEDS ORDERED: NS 0.9% 500 ML VISIV BAG IV PRN (00:30)
[2018-03-02] MEDS ORDERED: NS(*) 0.9% 500 ML BAG 500 ML ONE (00:47)
[2018-03-02] MEDS ORDERED: LEVOFLOXACIN/D5W 750 MG/150 ML 150 ML IVPB SCH (01:00)
[2018-03-02] MEDS ORDERED: VANCOMYCIN 1 GM ADDVIAL 1 GM in NS(*) 0.9% 250 ML ADDVAN BAG 250 ML IVPB ONE (01:00)
[2018-03-02] MEDS ORDERED: HYDROCORTISONE 100 MG/2 ML IVP SCH (01:00)
[2018-03-02] MEDS ORDERED: INFLUENZA VIRUS VAC 0.5 ML SYR IM ONLY ONE (01:00)
[2018-03-02] MEDS ORDERED: NOREPINE BITAR* 4 MG/4 ML AMP 4 MG in D5W(*) 250 ML BAG 246 ML IV PRN (01:00)
[2018-03-02] MEDS ORDERED: PROPOFOL(*)1000 MG/100 ML VIAL 100 ML ONE (01:01)
[2018-03-02] MEDS ORDERED: D5W(*) 250 ML BAG 250 ML ONE (01:18)
[2018-03-02] MEDS ORDERED: NOREPINEPH BITAR 4 MG/4 ML AMP ONE (01:18)
--- NOTE | 2018-03-02 01:27 | History & Physical ---
History of Present Illness Chief Complaint Shortness of breath History of Present Illness This patient presented to the emergency department complaining of shortness of breath. He was intubated in the emergency department. His records do indicate that he was seen in the emergency room 2 days ago for a COPD exacerbation and was treated with prednisone. History Problems: (1) DM2 (diabetes mellitus, type 2) (2) COPD exacerbation Status: Acute Home Meds Active Scripts Prednisone (PREDNISONE) 20 Mg Tablet, 20 MG PO QDAY for reduce lung inflammation for 7 Days, #5 Prov:RUBÉN STRONG DO 02/28/18 Ondansetron (ZOFRAN ODT) 4 Mg Tab.rapdis, 4 MG PO every 6 hours Y for NAUSEA/ VOMITING, #10 TAB TAKE 1 TABLET BY MOUTH EVERY 12 HOURS Prov:RUBÉN STRONG DO 02/28/18 Reported Medications Potassium Gluconate (POTASSIUM) 99 Mg Tablet, PO QDAY 02/27/18 Furosemide (LASIX) 20 Mg Tablet, 2 TAB PO QDAY, TAB 02/17/18 Metformin Hcl (METFORMIN HCL) 1,000 Mg Tablet, 1 TAB PO BID, TAB 02/17/18 Tiotropium Chardon (SPIRIVA) 18 Mcg/Cap Inh, 18 MCG INH QDAY, INH 02/17/18 Albuterol Sulfate 0.083% (ALBUTEROL SULFATE 0.083%) 2.5 Mg/3 Ml Vial.neb, 2.5 MG INH PRN, INH 02/17/18 Albuterol Sulfate 90 Mcg/Act (PROAIR HFA 90 MCG/ACT) 8.5 Gm Hfa.aer.ad, 2 PUFF IH Q4-6H Y for SHORTNESS OF BREATH, INHALER 02/17/18 Allergies: Coded Allergies: shellfish derived (Verified Allergy, Severe, THROAT SWELLING, 02/28/18) montelukast (Verified Allergy, Intermediate, SINUS INFECTIONS, 02/28/18) Review of Systems All Systems Reviewed/Normal: Yes, Except as Noted Respiratory: Shortness of Breath Exam Vital Signs Vital Signs Date Time Temp Pulse Resp B/P (MAP) Pulse Ox O2 Delivery O2 Flow Rate FiO2 03/02/18 01:05 100.0 03/02/18 00:42 ??? 15 93 03/02/18 00:39 100/72 (81) 03/01/18 22:22 Mechanical Ventilator Neuro: Other (Sedated to RASS -3) Eyes: PERRLA Cardiovascular: Regular Rate and Rhythm Respiratory: Other (Bilateral breath sounds present.) GI: Abd Soft and Non-Tender Extremities: Edema Integumentary: No Cyanosis Medical Decision Making Data Points Result Diagram: 03/01/18203903/01/182039 Item Value Date Time Lactate 5.2 mmol/L *H 03/01/182039 Troponin I 0.062 ng/ml 03/01/182039 B-Type Natriuretic Peptide 614 pg/ml H 03/01/182039 Item Value Date Time Arterial Blood pH 7.18 *L 03/01/182214 Arterial Blood Partial Pressure CO2 77 mmHg *H 03/01/182214 Arterial Blood Partial Pressure O2 68 mmHg 03/01/182214 Arterial Blood HCO3 28 mmol/L H 03/01/182214 Arterial Blood Oxygen Saturation 85 % L 03/01/182214 EKG / Imaging Imaging Chest x-ray reviewed. Assessment and Plan Problems: (1) Acute respiratory failure Assessment & Plan: He was intubated in the emergency department on 03/01/2018. He is receiving propofol for sedation. He is currently on SIMV. A repeat ABG and chest x-ray are ordered for the morning. (2) Bacterial pneumonia Assessment & Plan: He does have a new infiltrate in the left lung and his WBC is increased (on prednisone). He has been started on empiric treatment with Zosyn, vancomycin, and levofloxacin. Blood cultures are pending. (3) Septic shock Assessment & Plan: He does have an elevated lactate and hypotension. He is currently requiring a norepinephrine drip and has completed an initial fluid bolus. He has also been started on stress dose hydrocortisone. A repeat lactate level is pending. (4) Elevated brain natriuretic peptide (BNP) level Assessment & Plan: An echocardiogram has been ordered. (5) Elevated troponin Assessment & Plan: I suspect this is secondary to the strain of sepsis and renal failure, but a troponin series has been ordered. (6) Acute renal failure Assessment & Plan: He has received a fluid bolus. A repeat chemistry panel is ordered for the morning. (7) DM2 (diabetes mellitus, type 2) Assessment & Plan: He is on chronic treatment with metformin, which has been held. We have placed him on sliding scale level #2. Venous Thromboembolism Antithrombotics Is Pt On Any Antithrombotics?: No HUGO MIRZA DO Mar 02, 2018 01:27
[2018-03-02] MEDS ORDERED: PROPOFOL EMUL 10MG/ML 20 ML VL IVP ONE (01:30)
[2018-03-02] MEDS ORDERED: PROPOFOL(*)1000 MG/100 ML VIAL 100 ML IV ONE (01:30)
[2018-03-02] MEDS ORDERED: METRONIDAZOLE 500 MG/100 ML IVPB ONE (02:12)
[2018-03-02] MEDS: NS(*) 0.9% 1000 ML BAG 1,000 ML IV PRN ×2 (05:26→14:14)
--- NOTE | 2018-03-02 06:23 | RADIOLOGY IMAGING REPORT ---
FACILITY: [facility] - [place] PATIENT NAME: Neo Diaz : 1970 MR: [id number] V: [id number] EXAM DATE: ORDERING PHYSICIAN: HUGO MIRZA TECHNOLOGIST: Location: [facility] Patient: Neo Diaz : 1970 Visit/Account:[id number] Date of Sevice: 03/02/2018 PORTABLE CHEST: Indication: Risk for insufficiency. Technique: A single frontal film was obtained. Comparison: 03/01/2018 Skeletal and soft tissue structures: The ET tube and central venous catheter remain in satisfactory p osition. Heart and mediastinum: Stable. Lung grande: Hypoexpanded. No focal consolidation or volume loss. The vascular markings are unchanged . Pleural spaces: No evidence of pneumothorax or significant effusion. Impression: No acute interval change. Report Dictated By: Balta Hall MD at 03/02/2018 6:18 AM Report E-Signed By: Balta Hall MD at 03/02/2018 6:20 AM WSN:[id number]
[2018-03-02 06:28] LABS: PLATELET COUNT, AUTOMATED 335 K/uL (150-450)
[2018-03-02] MEDS ORDERED: NS 0.9% 500 ML BAG IV PRN (07:05)
[2018-03-02] MEDS: PROPOFOL(*)1000 MG/100 ML VIAL 100 ML IV PRN ×5 (08:06→22:35)
[2018-03-02] MEDS: INSULIN HUM LISPRO 100 UN/ML 3 ML VIAL SUBQ PRN ×4 (08:07→23:54)
[2018-03-02] MEDS: PIPERACILLIN/TAZO* 4.5 GM VIAL 4.5 GM in NS(*) 0.9% 100 ML ADDVANT BAG 100 ML IVPB SCH ×3 (08:07→20:31)
[2018-03-02] MEDS: ORAL SUCTION/CHLORHX/SWAB KIT MT SCH ×2 (08:36→20:31)
[2018-03-02] MEDS: PANTOPRAZOLE SOD 40 MG IV VIAL IVP SCH ×2 (08:38→20:33)
--- NOTE | 2018-03-02 08:39 | Hospitalist Progress Note ---
Subjective Progress Notes Subjective Sedated on ventilator. Physical Exam Vital Signs Date Time Temp Pulse Resp B/P (MAP) Pulse Ox O2 Delivery O2 Flow Rate FiO2 03/02/18 07:34 80.0 03/02/18 07:34 68 Mechanical Ventilator 03/02/18 07:30 69 20 98/71 (80) 03/02/18 07:00 98.0 Intake and Output 03/03/18 07:00 Intake Total 65.4 ml Balance 65.4 ml Intake IV Total 65.4 ml General Appearance: Other (sedated) ENT: Other (ET/OG tubes in place) Neck: Other (IJ site looks good) Cardiovascular: Regular Rate and Rhythm (distant tones) Respiratory: Other (Fairly clear but diminished bilaterally) GI: Other (Morbidly obese/soft/BS present) Musculoskeletal: Other (chronic venous stasis changes) Extremities: Warm, Perfused, Edema Integumentary: Scaly / Dry Skin (both LE) Result Diagram: 03/02/1861603/02/18616 Item Value Date Time Troponin I 0.080 ng/ml 03/02/18714 Lactate 3.1 mmol/L H 03/02/18 07 Calcium Level 7.6 mg/dl L 03/02/18616 Random Glucose 262 mg/dl H 03/02/18616 Glomerular Filtration Rate Calc 49.9 03/02/18616 Creatinine 1.50 mg/dl H 03/02/18 06 Blood Urea Nitrogen 32 mg/dl H 03/02/18 06 Carbon Dioxide Level 28 mmol/L 03/02/18616 Chloride Level 107 mmol/L 03/02/18616 Potassium Level 5.7 mmol/L H 03/02/18616 Sodium Level 142 mmol/L 03/02/18616 Monitor Interpretation: Other (sinus rhythm) Assessment and Plan Problems: (1) Acute respiratory failure Assessment & Plan: He was intubated in the emergency department on 03/01/2018. He is receiving propofol for sedation. Repeat ABG shows improvement in his respiratory acidosis. He is still requiring high FiO2 and does not tolerate lying flat with significant desaturations. His d-dimer was elevated modestly. He would not tolerate CT pulmonary angiogram and creatinine is elevated slightly. Will check echocardiogram especially to look at right-sided pressures as well as LV function. Will also check bilateral LE venous Doppler. Will start on IV heparin drip. Monitor closely in ICU. (2) Bacterial pneumonia Assessment & Plan: He does appear have a new infiltrate in the left perihilar area and his WBC was increased (on prednisone). He has been started on empiric treatment with IV Zosyn, vancomycin, and levofloxacin. Blood cultures are pending. (3) Septic shock Assessment & Plan: He does have an elevated lactate and hypotension. He is currently requiring a norepinephrine drip and has completed an initial fluid bolus. He has also been started on stress dose IV hydrocortisone. Will watch repeat lactate levels. (4) Elevated brain natriuretic peptide (BNP) level Assessment & Plan: An echocardiogram has been ordered. (5) Elevated troponin Assessment & Plan: I suspect this is secondary to the strain of sepsis and mild renal failure. Will monitor serial troponins. (6) Acute renal failure Assessment & Plan: Slightly improved with IV fluids. (7) DM2 (diabetes mellitus, type 2) Assessment & Plan: He is on chronic treatment with metformin, which has been held. We have placed him on sliding scale insulin as needed. Exam Sepsis Risk: Severe Sepsis Risk VIOLETA MCKENNA MD Mar 02, 2018 08:39
[2018-03-02] MEDS ORDERED: ENOXAPARIN 40 MG/0.4ML SYR SC SCH (09:00)
[2018-03-02] MEDS: HYDROCORTISONE 100 MG/2 ML IVP SCH ×2 (09:49→17:43)
[2018-03-02] MEDS: HEPARIN* SOD/D5W 25000 U/500ML 500 ML IV SCH ×2 (09:59→18:04)
[2018-03-02] MEDS ORDERED: HEPARIN (PORC) 5000 UN/ML VIAL IVP ONE (10:00)
[2018-03-02] MEDS: VANCOMYCIN(*) 1 GM VIAL 2 GM in NS(*) 0.9% 250 ML BAG 250 ML IVPB SCH ×2 (11:40→23:54)
--- NOTE | 2018-03-02 15:21 | RADIOLOGY IMAGING REPORT ---
FACILITY: [facility] PATIENT NAME: Neo Diaz : 1970 MR: [id number] V: [id number] EXAM DATE: ORDERING PHYSICIAN: VIOLETA MCKENNA TECHNOLOGIST: Location: [facility] Patient: Neo Diaz : 1970 Visit/Account:[id number] Date of Sevice: 03/02/2018 Exam type: VENOUS DOPP LOWER BILAT EXTREM History: Questionable DVT/PE, elevated troponin levels Comparison: None. Findings: The lower extremity veins were imaged bilaterally including the common femoral veins, greater sapheno us veins, superficial femoral veins, popliteal veins, posterior tibial veins, peroneal veins revealin g no evidence of intraluminal thrombi the veins were compressible and demonstrated augmentation IMPRESSION: 1. No sonographic evidence DVT involving the lower extremity veins bilaterally Report Dictated By: Natalie Mckeon MD at 03/02/2018 3:16 PM Report E-Signed By: Natalie Mckeon MD at 03/02/2018 3:17 PM [id number]
--- NOTE | 2018-03-02 15:44 | RADIOLOGY IMAGING REPORT ---
FACILITY: [facility] PATIENT NAME: Neo Diaz : 1970 MR: [id number] V: [id number] EXAM DATE: ORDERING PHYSICIAN: VIOLETA MCKENNA TECHNOLOGIST: Location: [facility] Patient: Neo Diaz : 1970 Visit/Account:[id number] Date of Sevice: 03/02/2018 CHEST/AB/PELV W/OUT CONTRAST HISTORY: sepsis, persistant elevated lactate ADDITIONAL HISTORY: None. TECHNIQUE: Contiguous axial images acquired through the chest abdomen and pelvis without IV contrast. Coronal and sagittal reformatting was also performed. Dose Lowering Technique One of the following dose optimization techniques was utilized in the performance of this exam: Autom ated exposure control; adjustment of the mA and/or kV according to the patient's size; or use of an i terative reconstruction technique. Specific details can be referenced in the facility's radiology C T exam operational policy. The study is limited due to lack of contrast and the patient's right arm was at his side in his left arm was draped over his anterior abdomen producing extensive artifacts COMPARISON: None. FINDINGS: CHEST: Lungs/Pleura: There are small bilateral posterior layering pleural effusions. The right pleural eff usion is partially loculated in the major fissure. There is dense airspace consolidation in the post erior aspect of both lower lobes with air bronchograms and also in the posterior and lateral aspect o f the right upper lobe. Streaky consolidation also noted in the posterior aspect of the left upper l obe. Is an 8 mm calcified nodule posterior aspect the left upper lobe. The endotracheal tube is low with the distal tip just entering the orifice of the right main bronchus Mediastinum/lymph nodes: There mildly prominent pretracheal lymph nodes present a account services representative lym ph node measures 1.1 x 1 cm. There are calcified left hilar lymph nodes. Inferior aspect left hilum appears prominent. This may simple represent a prominent lower lobe branch of the left pulmonary ar tania although a mass cannot be totally ruled out on this limited study due to lack of IV contrast. Heart/vessels: There is a right IJ catheter distal tip in the superior vena cava Bones/soft tissues: Spondylotic changes of the thoracic spine. The thyroid gland appears heterogene ous ABDOMEN AND PELVIS: Hepatobiliary: Postsurgical changes from a cholecystectomy. There is a very small amount of free fl uid seen adjacent to the liver . There is hepatomegaly with the right lobe of the liver measuring 2 4.3 cm in length Spleen: Spleen is enlarged measuring 15.6 cm in length. There is a trace amount of fluid adjacent t o the spleen Pancreas: There are mild infiltrative changes seen in the peripancreatic fat and about the root of t he mesentery. No abnormality of the pancreas itself is visualized Adrenals: Negative. Kidneys ureters and bladder : There is a lobular contour to both kidneys although no gross evidence o f hydronephrosis. The bladder is decompressed by Ozuna catheter. Air in the bladder is likely relat ed to the Ozuna catheter Genitalia: Negative. GI: No evidence of bowel obstruction. There is an NG/OG tube the distal tip is in the gastric fund us Vessels/spaces/nodes: Multiple shotty retroperitoneal and mesenteric lymph nodes are present There are prominent iliac lymph nodes and inguinal lymph nodes bilaterally. A account services representative right c ommon iliac lymph node measures 1.5 x 1.5 cm. a account services representative right external iliac lymph node measu res 2.3 x 1.3 cm. A right inguinal lymph node measures 1.4 x 1.3 cm . Left common iliac lymph node measures 1.4 x 1.3 cm. Left external iliac lymph node measures 1.9 x 1. 2 cm. Bones/soft tissues: There are bilateral inguinal hernias containing fat. There are spondylotic curran ges of the lumbar spine Additional findings: None pertinent. IMPRESSION: Small bilateral posterior layering pleural effusions and extensive air space consolidation in the pos sreedhar r aspect of the lower lobes posterior lateral right upper lobe streaky consolidation in the left upper lobe. This findings are consistent with multifocal pneumoniaEndotracheal tube is low with the distal tip just entering the orifice the right main bronchus. There are mildly prominent mediastinal lymph nodes in addition to calcified left hilar lymph nodes an d a calcified granuloma in the left upper lobe consistent with prior granulomatous process The inferior aspect the left hilum appears prominent. This may simply represent a prominent lower lo be branch left pulmonary artery although mass cannot be totally ruled out on this limited study due t o lack of IV contrast. Heterogeneous thyroid gland. Thyroid ultrasound may be helpful Hepatosplenomegaly. Postsurgical changes from cholecystectomy Small amount of free fluid in the upper abdomen Mild infiltrative changes are seen in the peripancreatic fat about the root of the mesentery. Clinic al correlation needed to exclude pancreatitis or mesenteritis Multiple shotty retroperitoneal mesenteric lymph nodes. There are also prominent bilateral iliac and inguinal lymph nodes as described above which could be r eactive although clinical correlation needed Bilateral inguinal hernias containing fat Results were called to VIOLETA MCKENNA at 03/02/2018 3:23 PM. Report Dictated By: Natalie Mckeon MD at 03/02/2018 3:17 PM Report E-Signed By: Natalie Mckeon MD at 03/02/2018 3:40 PM WSN:[id number]
--- NOTE | 2018-03-02 15:45 | RADIOLOGY IMAGING REPORT ---
FACILITY: [facility] [place] PATIENT NAME: Neo Diaz : 1970 MR: [id number] V: [id number] EXAM DATE: ORDERING PHYSICIAN: VIOLETA MCKENNA TECHNOLOGIST: Location: [facility] Patient: Neo Diaz : 1970 Visit/Account:[id number] Date of Sevice: 03/02/2018 Exam type: CHEST SINGLE AP History: endotrachial tube pulled back 2cm Comparison: Portable chest performed earlier in the day at 5:45 AM Findings: The endotracheal tube is been pulled back with the distal tip now projects approximately 3.4 cm above the shweta. Right IJ catheter unchanged. Mild interstitial prominence noted throughout the lungs. There is patchy airspace consolidation seen in the medial lung bases with air bronchograms slightly increased. Cardiac silhouette appears enlarged. IMPRESSION: 1. Endotracheal tube is been pulled back with the distal tip now projecting approximately 3.4 cm abo ve the shweta Right IJ catheter unchanged Cardiomegaly unchanged Increasing airspace consolidation the lower lung grande consistent with infiltrates and/or atelectasi s Report Dictated By: Natalie Mckeon MD at 03/02/2018 3:40 PM Report E-Signed By: Natalie Mckeon MD at 03/02/2018 3:41 PM WSN:[email or web address]
[2018-03-03] VITALS (52 sets, daily range): BP systolic 92–130; BP diastolic 57–85
[2018-03-03] MEDS: PIPERACILLIN/TAZO* 4.5 GM VIAL 4.5 GM in NS(*) 0.9% 100 ML ADDVANT BAG 100 ML IVPB SCH ×2 (02:09→08:12)
[2018-03-03] MEDS: HYDROCORTISONE 100 MG/2 ML IVP SCH ×3 (02:09→18:02)
[2018-03-03] MEDS: PROPOFOL(*)1000 MG/100 ML VIAL 100 ML IV PRN ×9 (02:09→23:38)
[2018-03-03] MEDS: LEVOFLOXACIN/D5W 750 MG/150 ML 150 ML IVPB SCH (02:52)
[2018-03-03] MEDS: HEPARIN* SOD/D5W 25000 U/500ML 500 ML IV SCH ×2 (02:54→13:15)
[2018-03-03 05:32] LABS: PLATELET COUNT, AUTOMATED 255 K/uL (150-450)
[2018-03-03] MEDS: INSULIN HUM LISPRO 100 UN/ML 3 ML VIAL SUBQ PRN ×3 (06:13→18:02)
--- NOTE | 2018-03-03 06:39 | RADIOLOGY IMAGING REPORT ---
FACILITY: [facility] [place] PATIENT NAME: Neo Diaz : 1970 MR: [id number] V: [id number] EXAM DATE: ORDERING PHYSICIAN: VIOLETA MCKENNA TECHNOLOGIST: [place] [facility] [place]: Neo Diaz : 1970 Visit/Account:[id number] Date of Sevice: 03/03/2018 Portable chest: Indication: Pneumonia. Technique: A single frontal film was obtained. Comparison: 03/02/2018 Lines and tubes: The ET tube and PICC line remain in satisfactory position. Skeletal and soft tissue structures: Intact and unremarkable. Heart and mediastinum: Stable cardiomegaly. Lung grande: Hypoexpanded. There are linear opacities in the lower lung grande, compatible with atele ctasis. There is hazy density at the left base. Pleural spaces: A small left effusion is suspected. No evidence of pneumothorax. Impression: No significant change. Report Dictated By: Balta Hall MD at 03/03/2018 6:34 AM Report E-Signed By: Balta Hall MD at 03/03/2018 6:36 AM WSN:[id number]
--- NOTE | 2018-03-03 09:11 | Hospitalist Progress Note ---
Subjective Progress Notes Subjective He has been weaned off of Levophed. FiO2 has been decreased. Physical Exam Vital Signs Date Time Temp Pulse Resp B/P (MAP) Pulse Ox O2 Delivery O2 Flow Rate FiO2 03/03/18 07:49 40.0 03/03/18 07:49 56 20 03/03/18 06:00 98.6 112/65 (81) 92 Mechanical Ventilator General Appearance: No Acute Distress Neuro: Other (Sedated and intubated) Eyes: Other (2mm pupils, minimally reactive, symmetric) Cardiovascular: Regular Rate and Rhythm Respiratory: Clear to Auscultation Extremities: Edema (Legs with large amount of edema. Feet are warm with <4 second capillary refill) Integumentary: No Jaundice, No Cyanosis Result Diagram: 03/03/1814 03/03/18513 Assessment and Plan Problems: (1) Acute respiratory failure Assessment & Plan: He was intubated in the emergency department on 03/01/2018. He is receiving propofol for sedation. Repeat ABG shows improvement in his respiratory acidosis. He was initially requiring high FiO2 and did not tolerate lying flat with significant desaturations. FiO2 is decreased to 45%. He is breathing at the rate of the vent (i.e. 20). He is on SIMV settings with Vt 700 and PEEP of 6. Plateau pressures are wnl. He was started on a Heparin drip for concern of PE. Will get a CTA of the chest to evaluate now that his creatinine is improved. He is on Protonix. Will wait to start nutrition. (2) Bacterial pneumonia Assessment & Plan: He does appear have a new infiltrate in the left perihilar area and his WBC was increased (on prednisone). He has been started on empiric treatment with IV Zosyn, vancomycin, and levofloxacin (he had been on two courses of antibiotics recently for cellulitis). WBC is decreasing. He is afebrile and requiring less FiO2. Blood cultures are pending. (3) Septic shock Assessment & Plan: He presented with an elevated lactate and hypotension. He was requiring a norepinephrine drip and has completed an initial fluid bolus. Now off of norepinephrine. He has also had been started on stress dose IV hydrocortisone, so will cut the dose in half. Lactate still high, but trending down. Likely, metformin contributing. Will follow. (4) Elevated brain natriuretic peptide (BNP) level Assessment & Plan: An echocardiogram has been ordered. (5) Elevated troponin Assessment & Plan: I suspect this is secondary to the strain of sepsis and mild renal failure. Will monitor serial troponins. (6) Acute renal failure Assessment & Plan: Improving with IV fluids. (7) DM2 (diabetes mellitus, type 2) Assessment & Plan: He is on chronic treatment with metformin, which has been held. We have placed him on sliding scale insulin as needed. (8) Elevated liver enzymes Status: Acute Assessment & Plan: Etiology unclear, but likely related to antibiotics. T. bilirubin and alkaline phosphatase are wnl. Will get a CPK and follow LFT's. Exam Sepsis Risk: No Definite Risk ANGELO KWON MD Mar 03, 2018 09:11
[2018-03-03] MEDS: PANTOPRAZOLE SOD 40 MG IV VIAL IVP SCH ×2 (09:15→20:21)
[2018-03-03] MEDS: ORAL SUCTION/CHLORHX/SWAB KIT MT SCH ×2 (09:15→20:21)
[2018-03-03] MEDS ORDERED: NS(*) 0.9% 50 ML BAG 50 ML ONE ×2 (11:12→11:18)
[2018-03-03] MEDS ORDERED: IOPAMIDOL 76% 150 ML INFUS BTL 150 ML ONE (11:18)
[2018-03-03] MEDS: VANCOMYCIN(*) 1 GM VIAL 2 GM in NS(*) 0.9% 250 ML BAG 250 ML IVPB SCH ×2 (12:21→23:38)
--- NOTE | 2018-03-03 13:12 | Medical Nutrition Therapy ---
Nutrition Anthropometrics Height (Inches): 73.00 Height (Calculated Centimeters: [phone] Weight (Pounds): 431 Weight (Calculated Kilograms): 195.725 BMI: 56.9 Morgan Nutrition Score: Probably Inadequate Morgan Nutrition Risk Score: 12 Dietary Referral Nutrition Risk Factors: Mech. Ventilated Nutrition Risk Comment: Physical Findings Physical Appearance: Morbidly Obese 40+ Skin Appearance Skin Appearance: Edema Edema Location Modifier: Both Edema Location: Lower Extremity Type of Edema: Degree of Edema: 3+ Gastrointestinal Symptoms GI Symtoms: Tube Present: OG Bowel Sounds: Recent Bowel Pattern: Stool Characteristics: Nutritional Diagnosis Nutritional Risk Acuity 1: Acute/ES Renal, Pulm Fail Vent Nutritional Risk Acuity 2: Sepsis Nutritional Risk Acuity 3: Morbid Obesity Past Medical History: Hx of T2DM and COPD exacerbation. Nutritional Acuity: 1-High Nutrition Diagnosis: Over-weight/Obesity Nutrition Etiology: Physiological Causes Energy Requirement: 3047 Protein Requirement: 235 (1.2g/kg) Fluid Requirement: 3047 Diet Type: NPO (Nothing by Mouth) Nutrition Intervention: Incr diet as tolerated Nutrition Monitoring & Eval RD Patient Assessment Time: [address] Assessment Type: RD Assessment Patient Nutrition Acuity: 1-High Follow Up Date: Mar 05, 2018 Nutritional Comment: 03/02. Admitted for hypoxia and altered mental status. Pt currently being treated for acute respiratory failure, bacterial pnneumonia, septic shock, elevated troponin, elevated brain natriuretic peptide level, and T2DM. Pt is NPO and was inubated and sedated on 03/01, currently receiving Propfol rate of 28.8ml/hr. Pt also receiving 2-10 units Lispro SS SUBQ. Noteable labs include: Low Hgb 13.3 and calcuim 7.5. Elevated WBC 17.3, BUN 32, Creatinine 1.5, and random BG 234. Pt has BMI of 55.8, considered morbidly obese. Will monitor pt weight, labs, and diet. MR 03/03. Pt still on NPO- day 2. Being treated for respiratory failure and sepsis. Cont intubation and sedation. Propofol rate increase to 34.6ml/hr, pt receiving 913 kcal from propofol. Pt cont to receive insulin Lispro SS 2-10 units SUBQ. Noteable elevated labs include: WBC 14.9, BUN 33, Creatinine 1.3, random BG 223, AST 308, ALT 386, creatine kinase 239. Noteable low labs include: Hgb 12.6, Hct 38.8, and Alb 3.1. Will cont monitor labs and diet. ANJUM MURPHY Mar 03, 2018 12:42
[2018-03-03] MEDS: IMIPENEM/CILASTA(*) 500MG VIAL 400 MG in NS(*) 0.9% 100 ML BAG 100 ML IVPB SCH ×2 (14:07→20:21)
--- NOTE | 2018-03-03 14:29 | RADIOLOGY IMAGING REPORT ---
FACILITY: [facility] [place] PATIENT NAME: Neo Diaz : 1970 MR: [id number] V: [id number] EXAM DATE: ORDERING PHYSICIAN: ANGELO KWON TECHNOLOGIST: Location: [facility] [place] Patient: Neo Diaz : 1970 Visit/Account:[id number] Date of Sevice: 03/03/2018 CTA CHEST WW/O CNTR (PULM ANG) HISTORY: hypoxia, concern for PE ADDITIONAL HISTORY: None. TECHNIQUE: CTA chest with intravenous contrast. Axial imaging acquired following administration of IV contrast timed for maximum opacification of the pulmonary arterial vasculature. Slab 3-D MIP jackie nstructed images were also created for further evaluation and interpretation. Reconstruction of the [facility] data set includes multiplanar 2-D in the sagittal and coronal planes and 3-D reconstructed mary nal slab MIP series. 3-D images were created by the technologist. Dose Lowering Technique One of the following dose optimization techniques was utilized in the performance of this exam: Autom ated exposure control; adjustment of the mA and/or kV according to the patient's size; or use of an i terative reconstruction technique. Specific details can be referenced in the facility's radiology C T exam operational policy. CONTRAST: 120 mL Isovue-[id number] COMPARISON: CT chest seven pelvis March 02, 2018 FINDINGS: Lungs/pleura: The endotracheal tube is been repositioned appears in good position with the distal ti p approximately 3.9 cm proximal to shweta. Bilateral posterior layering pleural effusions appear rel atively unchanged. The dense airspace consolidation in the lower lobes right upper lobe are slightly improved. The streaky consolidation left upper lobe relatively unchanged. 8 mm calcified nodule po sterior aspect left upper lobe is unchanged Heart/vessels: Right IJ catheter again seen distal tip in superior vena cava Along the inferior aspect the left hilum the hyperdensity is now opacified with contrast and is relat ed to the left main pulmonary artery and left lower lobe pulmonary arterial branch. The left main pu lmonary artery appears dilated at 2.8 cm. This no evidence pulmonary emboli Mediastinum/lymph nodes: Calcified left hilar lymph nodes and mildly prominent pretracheal lymph nod e appears unchanged. There are multiple small prevascular space lymph nodes also present Visualized upper abdomen: There is an NG/OG tube distal tip is in the gastric body Bones/soft tissues: Spondylotic changes of the thoracic spine Additional findings: None IMPRESSION: No evidence of pulmonary emboli Bilateral posterior layering small pleural effusions appear relatively unchanged. Dense airspace consolidation lower lobes and right upper lobe slightly improved. Streaky consolidati on left upper lobe relatively unchanged The endotracheal tube is been repositioned and appears in good position The prominence of the left hilum is secondary to a dilated left pulmonary artery and a branch to the left lower lobe. Mildly prominent pretracheal lymph nodes and small vascular space lymph nodes appear stable Report Dictated By: Natalie Mckeon MD at 03/03/2018 2:04 PM Report E-Signed By: Natalie Mckeon MD at 03/03/2018 2:25 PM QUINTONN:[email or web address]
--- NOTE | 2018-03-03 16:46 | Antimicrobial Stewardship ---
Antimicrobial Time Out Antimicrobial Stewardship MD Service: Hospitalist Indications: CAP Antimicrobial Used Vancomycin, Zosyn, Levofloxacin -- switched Zosyn for Primaxin on 03/03/18 secondary to LFT elevation Start Date: Mar 01, 2018 Culture Results: Yes (BLood Cx and Urine Cx - NGTD) Eligible for PO Conversion Eligable for PO Conversion: No Reviewed with Provider Reviewed w/ Provider on Rounds: Yes Date Reviewed w/ Provider: Mar 03, 2018 Comments Comments Pneumonia - Pt with prior courses of antibiotics as an outpatient and steroids, started on broad spectrum antibiotics. T max - 100 on admission, now afebrile WBC - 19.3, down to 14.9 (on steroids) Chest xray- showed infiltrates CTA- no evidence of PE Vancomycin Trough - 03/03/18-- 19.96, keep on Vancomycin 2g IV q12h for now, trough tomorrow Changed Zosyn to Primaxin secondary to LFT elevation Will follow and de-escalate as appropriate. Rayne Huynh, PharmD, BCOP RAYNE HUYNH Mar 03, 2018 16:46
[2018-03-03] MEDS: NS(*) 0.9% 1000 ML BAG 1,000 ML IV PRN (16:59)
[2018-03-04] VITALS (48 sets, daily range): BP systolic 91–137; BP diastolic 56–83
[2018-03-04] MEDS: PROPOFOL(*)1000 MG/100 ML VIAL 100 ML IV PRN ×12 (01:41→23:48)
[2018-03-04] MEDS: HYDROCORTISONE 100 MG/2 ML IVP SCH ×3 (01:42→17:49)
[2018-03-04] MEDS: IMIPENEM/CILASTA(*) 500MG VIAL 400 MG in NS(*) 0.9% 100 ML BAG 100 ML IVPB SCH ×4 (01:42→20:24)
[2018-03-04] MEDS: LEVOFLOXACIN/D5W 750 MG/150 ML 150 ML IVPB SCH (03:16)
[2018-03-04 05:26] LABS: PLATELET COUNT, AUTOMATED 232 K/uL (150-450)
--- NOTE | 2018-03-04 05:58 | RADIOLOGY IMAGING REPORT ---
FACILITY: [facility] [place] PATIENT NAME: Neo Diaz : 1970 MR: [id number] V: [id number] EXAM DATE: ORDERING PHYSICIAN: ANGELO KWON TECHNOLOGIST: Location: [facility] [place] Patient: Neo Diaz : 1970 Visit/Account:[id number] Date of Sevice: 03/04/2018 CHEST SINGLE AP 03/04/2018 06:00 hours. HISTORY: Respiratory failure. Intubated. COMPARISON: 03/03/2018 and studies dating to 02/27/2018. TECHNIQUE: Portable AP view of the chest. FINDINGS: Tubes/lines/hardware: ET tube terminates 6 cm above the shweta. Right jugular catheter terminates in the upper right atrium, unchanged. There are external chest leads. Pulmonary: Mild improvement in the perihilar opacities. There is no pneumothorax or pleural effusion. Cardiomediastinal: The cardiac silhouette is enlarged, stable. The mediastinal silhouette is within n ormal limits. Bones/soft tissues: No acute osseous abnormality. The visible abdomen is normal. IMPRESSION: 1. Mild improvement in the perihilar opacities, which may be improving pulmonary edema. 2. Left pleural effusion is no longer identified. Report Dictated By: Magali Abrams at 03/04/2018 5:51 AM Report E-Signed By: Magali Abrams at 03/04/2018 5:53 AM WSN:[id number]
[2018-03-04] MEDS: INSULIN HUM LISPRO 100 UN/ML 3 ML VIAL SUBQ PRN ×3 (06:53→23:52)
[2018-03-04] MEDS: ENOXAPARIN 40 MG/0.4ML SYR SC SCH (09:24)
[2018-03-04] MEDS: PANTOPRAZOLE SOD 40 MG IV VIAL IVP SCH ×2 (09:25→20:24)
[2018-03-04] MEDS: ORAL SUCTION/CHLORHX/SWAB KIT MT SCH ×2 (09:28→20:24)
[2018-03-04] MEDS ORDERED: INSULIN HUM REG 100 UN/ML 3 ML 10 UNIT, MULTIVITAMINS(*) 10 ML VIAL 10 ML, TRACE METALS... IV ONE (09:30)
[2018-03-04] MEDS: NS(*) 0.9% 1000 ML BAG 1,000 ML IV PRN (11:05)
--- NOTE | 2018-03-04 11:29 | Hospitalist Progress Note ---
Subjective Progress Notes Subjective The patient remains intubated and sedated. Physical Exam Vital Signs Date Time Temp Pulse Resp B/P (MAP) Pulse Ox O2 Delivery O2 Flow Rate FiO2 03/04/18 08:35 30.0 03/04/18 08:30 86 36 137/76 (96) 83 Mechanical Ventilator 03/04/18 08:00 98.4 Intake and Output 03/05/18 07:00 Intake Total 117 ml Output Total 175 ml Balance -58 ml Intake IV Total 117 ml Output Urine Total 175 ml General Appearance: Other (Sedated.) Neuro: Other (Sedated.) ENT: Other (ET tube in place.) Neck: Other (Central line in place R jugular. No redness, swelling or drainage noted.) Cardiovascular: Regular Rate and Rhythm Respiratory: Clear to Auscultation (Anteriorly.) GI: Other (Obese, soft, BS+.) Extremities: Warm, Perfused, Other (Chronic venous stasis changes both LE with some excoriations bilaterally.) Integumentary: Other (See above.) Psych: Other (Sedated.) Result Diagram: 03/04/18 0510 03/04/18 05 Item Value Date Time Neutrophils % (Manual) 68 % 03/04/18 0510 Band Neutrophils % 12 % 03/04/18 0510 Lymphocytes % (Manual) 9 % L 03/04/18 0510 Monocytes % (Manual) 5 % 03/04/18 0510 Eosinophils % (Manual) 3 % 03/04/18 0510 Basophils % (Manual) 0 % L 03/04/18 0510 Metamyelocytes % 2 % 03/04/18 0510 Myelocytes % 1 % 03/04/18 0510 Vancomycin Level Trough 19.96 ug/ml 03/03/18 1103 Calcium Level 7.8 mg/dl L 03/04/18 0510 Total Bilirubin 0.4 mg/dl 03/04/18 0510 Aspartate Amino Transf (AST/SGOT) 176 U/L H 03/04/18 0510 Alanine Aminotransferase (ALT/SGPT) 333 U/L H 03/04/18 0510 Alkaline Phosphatase 67 U/L 03/04/18 0510 Total Protein 5.9 g/dl L 03/04/18 0510 Albumin 2.9 g/dl L 03/04/18 0510 Lactate 1.2 mmol/L 03/04/18 0510 Triglycerides Level 251 mg/dl H 03/03/18 1700 Blood Gas Puncture Site Right radial 03/04/18 0525 Blood Gas Patient Temperature 37.1 DEGREES 03/04/18 0525 Arterial Blood pH 7.45 03/04/18 0525 Arterial Blood Partial Pressure CO2 35 mmHg 03/04/18 0525 Arterial Blood Partial Pressure O2 60 mmHg 03/04/18 0525 Arterial Blood HCO3 24 mmol/L 03/04/18 0525 Arterial Blood Oxygen Saturation 92 % 03/04/18 0525 Arterial Blood Base Excess 0.0 mmol/L 03/04/18 0525 Shree Test Acceptable 03/04/18 0525 Oxygen Liters/Minute 30 03/04/18 0525 Blood and urine cultures are negative to date. Imaging FACILITY: [facility] PATIENT NAME: Neo Diaz : 1970 MR: [id number] V: [id number] EXAM DATE: ORDERING PHYSICIAN: ANGELO KWON TECHNOLOGIST: Location: [facility] Patient: Neo Diaz : 1970 Visit/Account:[id number] Date of Sevice: 03/04/2018 CHEST SINGLE AP 03/04/2018 06:00 hours. HISTORY: Respiratory failure. Intubated. COMPARISON: 03/03/2018 and studies dating to 02/27/2018. TECHNIQUE: Portable AP view of the chest. FINDINGS: Tubes/lines/hardware: ET tube terminates 6 cm above the shweta. Right jugular catheter terminates in the upper right atrium, unchanged. There are external chest leads. Pulmonary: Mild improvement in the perihilar opacities. There is no pneumothorax or pleural effusion. Cardiomediastinal: The cardiac silhouette is enlarged, stable. The mediastinal silhouette is within normal limits. Bones/soft tissues: No acute osseous abnormality. The visible abdomen is normal. IMPRESSION: 1. Mild improvement in the perihilar opacities, which may be improving pulmonary edema. 2. Left pleural effusion is no longer identified. Report Dictated By: Magali Abrams at 03/04/2018 5:51 AM Report E-Signed By: Magali Abrams at 03/04/2018 5:53 AM WSN:[id number] Monitor Interpretation: Normal Sinus Rhythm Assessment and Plan Problems: (1) Acute respiratory failure Assessment & Plan: He was intubated in the emergency department on 03/01/2018. He is receiving propofol for sedation. Repeat ABG shows resolution of his respiratory acidosis. He was initially requiring high FiO2 and did not tolerate lying flat with significant desaturations. FiO2 is decreased to 30%. He is breathing at the rate of the vent (i.e. 20). He is on SIMV settings with Vt 700 and PEEP of 6. Plateau pressures are wnl. Will try to wean today as tolerated. He was started on a Heparin drip for concern of PE but a CTA of the chest was negative so this was discontinued. He is now on Lovenox for DVT prophylaxis. He is on Protonix. Will start nutrition with TPN. (2) Bacterial pneumonia Assessment & Plan: He does appear have a new infiltrate in the left perihilar area and his WBC was increased (on prednisone). He was started on empiric treatment with IV Zosyn, vancomycin, and levofloxacin (he had been on two courses of antibiotics recently for cellulitis). Zosyn was then stopped and Primaxin started. WBC is decreasing but he continues to have significant bandemia. He is afebrile and requiring less FiO2. CXR shows improvement today as well. Blood cultures are negative to date. (3) Septic shock Assessment & Plan: He presented with an elevated lactate and hypotension. He was requiring a norepinephrine drip and completed an initial fluid bolus. Now off of norepinephrine. He is also on stress dose IV hydrocortisone, currently 50mg IV bid. Lactate normal today. (4) Elevated brain natriuretic peptide (BNP) level Assessment & Plan: An echocardiogram showed normal LV function (EF 55-60%) with grade I diastolic dysfunction. Repeat BNP on 03/03 was normal at 19. (5) Elevated troponin Assessment & Plan: Likely secondary to the strain of sepsis and mild renal failure. Troponins are trending downward. (6) Acute renal failure Assessment & Plan: Improving with IV fluids. (7) DM2 (diabetes mellitus, type 2) Assessment & Plan: He is on chronic treatment with metformin, which has been held. We have placed him on sliding scale insulin as needed. (8) Elevated liver enzymes Status: Acute Assessment & Plan: Etiology unclear, but likely related to antibiotics. T. bilirubin and alkaline phosphatase are wnl. Improving. Time Spent on Plan of Care: < 30 min Exam Sepsis Risk: No Definite Risk MARTINA MCKENNA MD Mar 04, 2018 11:29
[2018-03-04] MEDS: VANCOMYCIN(*) 1 GM VIAL 1 GM, VANCOMYCIN HCL 0.750 GM VIAL 0.75 GM in NS(*) 0.9% 250 ML... IVPB SCH ×2 (12:06→23:49)
[2018-03-05] VITALS (48 sets, daily range): BP systolic 81–134; BP diastolic 37–84
[2018-03-05] MEDS: HYDROCORTISONE 100 MG/2 ML IVP SCH ×3 (01:52→17:59)
[2018-03-05] MEDS: IMIPENEM/CILASTA(*) 500MG VIAL 400 MG in NS(*) 0.9% 100 ML BAG 100 ML IVPB SCH ×4 (01:52→20:17)
[2018-03-05] MEDS: PROPOFOL(*)1000 MG/100 ML VIAL 100 ML IV PRN ×12 (01:52→22:09)
[2018-03-05] MEDS: LEVOFLOXACIN/D5W 750 MG/150 ML 150 ML IVPB SCH (03:43)
[2018-03-05 05:29] LABS: PLATELET COUNT, AUTOMATED 209 K/uL (150-450)
[2018-03-05] MEDS: NS(*) 0.9% 1000 ML BAG 1,000 ML IV PRN (05:30)
--- NOTE | 2018-03-05 05:40 | RADIOLOGY IMAGING REPORT ---
FACILITY: [facility] [place] PATIENT NAME: Neo Diaz : 1970 MR: [id number] V: [id number] EXAM DATE: ORDERING PHYSICIAN: MARTINA MCKENNA TECHNOLOGIST: Location: [facility] Patient: Neo Diaz : 1970 Visit/Account:[id number] Date of Sevice: 03/05/2018 INDICATION: . DATE: 03/05/2018 5:32 AM. TECHNIQUE: CHEST SINGLE AP COMPARISON: Chest radiograph March 04, 2018. FINDINGS: The endotracheal tube is positioned above the shweta near the level of the clavicular heads . Esophagogastric tube tip is not well imaged due to the portable technique and body habitus. The ds gs are hypoinflated. The size of the cardiac silhouette is exaggerated due to the portable technique. It is unchanged. A right IJ central line probably terminates in the right atrium. IMPRESSION: No significant change. Report Dictated By: Asya Martinez MD at 03/05/2018 5:32 AM Report E-Signed By: Asya Martinez MD at 03/05/2018 5:35 AM WSN:[id number]
[2018-03-05] MEDS: INSULIN HUM LISPRO 100 UN/ML 3 ML VIAL SUBQ PRN ×4 (06:33→23:26)
--- NOTE | 2018-03-05 08:10 | Hospitalist Progress Note ---
Subjective Progress Notes Subjective Sedated on ventilator. No fever. He did not tolerate the CPAP trial very long yesterday (~30 minutes). Physical Exam Vital Signs Date Time Temp Pulse Resp B/P (MAP) Pulse Ox O2 Delivery O2 Flow Rate FiO2 03/05/18 07:56 50 18 03/05/18 07:56 30.0 03/05/18 07:56 92 Mechanical Ventilator 03/05/18 06:00 117/71 (86) 03/05/18 03:30 98.2 General Appearance: Other (sedated) ENT: Other (ET tube in place) Neck: Other (right IJ site looks good) Cardiovascular: Other (slightly bradycardic regular no murmur noted) Respiratory: Other (diminished throughout/no wheezes or rales noted at this time/few coarse vent sounds) GI: Other (obese/rare BS) Extremities: Warm, Perfused, Edema Integumentary: Other (chronic venous stasis changes both LE) Result Diagram: 03/05/18 0503/05/18 0524 Item Value Date Time Albumin 2.9 g/dl L 03/05/18 0524 Total Protein 5.9 g/dl L 03/05/18 0524 Alkaline Phosphatase 75 U/L 03/05/18 0524 Alanine Aminotransferase (ALT/SGPT) 293 U/L H 03/05/18 0524 Aspartate Amino Transf (AST/SGOT) 126 U/L H 03/05/18 0524 Total Bilirubin 0.5 mg/dl 03/05/18 0524 Calcium Level 7.9 mg/dl L 03/05/18 0524 Oxygen Liters/Minute 30 03/05/18 0524 Shree Test Acceptable 03/05/18 0524 Arterial Blood Base Excess -1.0 mmol/L 03/05/18 0524 Arterial Blood Oxygen Saturation 91 % L 03/05/18 0524 Arterial Blood HCO3 24 mmol/L 03/05/18 0524 Arterial Blood Partial Pressure O2 60 mmHg 03/05/18 0524 Arterial Blood Partial Pressure CO2 38 mmHg H 03/05/18 0524 Arterial Blood pH 7.40 03/05/18 0524 Blood Gas Patient Temperature 36.7 DEGREES 03/05/18 0524 Blood Gas Puncture Site Right radial 03/05/18 0524 Monitor Interpretation: Sinus Bradycardia Assessment and Plan Problems: (1) Acute respiratory failure Assessment & Plan: He was intubated in the emergency department on 03/01/2018. He is receiving propofol for sedation. Repeat ABGs show resolution of his respiratory acidosis. He was initially requiring high FiO2 and did not tolerate lying flat with significant desaturations. FiO2 has now been decreased to 30%. He is not over-breathing the rate of the vent (20). Will try to wean rate today as tolerated. He was started on a Heparin drip for concern of PE, but a CTA of the chest was negative so this was discontinued. He is now on Lovenox for DVT prophylaxis. He is on Protonix. We also started nutrition with TPN. (2) Bacterial pneumonia Assessment & Plan: He has bibasilar infiltrates on CT scan and his WBC was increased (on prednisone). He was started on empiric treatment with IV Zosyn, vancomycin, and levofloxacin (he had been on two courses of antibiotics recently for cellulitis). Zosyn was then switched to Primaxin. WBC is now in normal range. He is afebrile and requiring less FiO2. Blood cultures are negative to date. (3) Septic shock Assessment & Plan: He presented with an elevated lactate and hypotension. He was requiring a norepinephrine drip and completed an initial fluid bolus. Now off of norepinephrine. He continues on stress dose IV hydrocortisone - currently 50mg IV bid. Lactate normalized. (4) Elevated brain natriuretic peptide (BNP) level Assessment & Plan: An echocardiogram showed normal LV function (EF 55-60%) with grade I diastolic dysfunction. Repeat BNP on 03/03 was normal at 19. (5) Elevated troponin Assessment & Plan: Likely secondary to the strain of sepsis and mild renal failure. Troponins trended back downward. (6) Acute renal failure Assessment & Plan: Improved/resolved with IV fluids. (7) DM2 (diabetes mellitus, type 2) Assessment & Plan: He has been on chronic treatment with metformin, which has been held. We have placed him on sliding scale insulin as needed. (8) Elevated liver enzymes Status: Acute Assessment & Plan: Etiology unclear, but likely related to acute illness. Improving - will continue to monitor. Exam Sepsis Risk: No Definite Risk VIOLETA MCKENNA MD Mar 05, 2018 08:10
[2018-03-05] MEDS: ORAL SUCTION/CHLORHX/SWAB KIT MT SCH ×2 (09:00→20:16)
[2018-03-05] MEDS: ENOXAPARIN 40 MG/0.4ML SYR SC SCH (09:02)
[2018-03-05] MEDS: PANTOPRAZOLE SOD 40 MG IV VIAL IVP SCH ×2 (09:21→20:16)
[2018-03-05] MEDS: INS HUM REG* 100 U/ML(ER ONLY) 20 UNIT, MULTIVITAMINS(*) 10 ML VIAL 10 ML, TRACE METALS... IV SCH (09:50)
--- NOTE | 2018-03-05 10:11 | Medical Nutrition Therapy ---
Nutrition Anthropometrics Height (Inches): 73.00 Height (Calculated Centimeters: [phone] Weight (Pounds): 433 Weight (Calculated Kilograms): 196.405 BMI: 57.1 Morgan Nutrition Score: Adequate Morgan Nutrition Risk Score: 13 Dietary Referral Nutrition Risk Factors: Mech. Ventilated Nutrition Risk Comment: Physical Findings Physical Appearance: Morbidly Obese 40+ Skin Appearance Skin Appearance: Edema Edema Location Modifier: Both Edema Location: Lower Extremity Type of Edema: Degree of Edema: 3+ Gastrointestinal Symptoms GI Symtoms: Tube Present: OG Bowel Sounds: Recent Bowel Pattern: Stool Characteristics: Nutritional Diagnosis Nutritional Risk Acuity 1: TPN/PPN, Pulm Fail Vent Nutritional Risk Acuity 2: Sepsis Nutritional Risk Acuity 3: Morbid Obesity Past Medical History: Hx of T2DM and COPD exacerbation. Nutritional Acuity: 1-High Nutrition Diagnosis: Over-weight/Obesity Nutrition Etiology: Physiological Causes Adjusted Energy Requirement Re: 3100 (M- St J X 1.2 AF X 1.1 SF) Protein Requirement: 97 (1.1gm/kg IBWR) Fluid Requirement: 3047 Diet Type: NPO (Nothing by Mouth), TPN/PPN Nutrition Intervention: Nutrition support, Incr diet as tolerated Nutritional Support Current Enteral / Parental: TPN Rate: 83ml/hr plus propofol Current Calories: 1760 Current Protein: 100 Current Lipids Calories: 1367 (from propofol at 51.8mls/hr) Total Current Calories: 3127 Nutrition Monitoring & Eval Nutritional Goals Comment: TPN will meet nutr needs until oral intake can meet needs RD Patient Assessment Time: [address] Assessment Type: RD Re-Assessment Patient Nutrition Acuity: 1-High Follow Up Date: Mar 08, 2018 Nutritional Comment: 03/02. Admitted for hypoxia and altered mental status. Pt currently being treated for acute respiratory failure, bacterial pnneumonia, septic shock, elevated troponin, elevated brain natriuretic peptide level, and T2DM. Pt is NPO and was inubated and sedated on 03/01, currently receiving Propfol rate of 28.8ml/hr. Pt also receiving 2-10 units Lispro SS SUBQ. Noteable labs include: Low Hgb 13.3 and calcuim 7.5. Elevated WBC 17.3, BUN 32, Creatinine 1.5, and random BG 234. Pt has BMI of 55.8, considered morbidly obese. Will monitor pt weight, labs, and diet. MR 8. Pt still on NPO- day 2. Being treated for respiratory failure and sepsis. Cont intubation and sedation. Propofol rate increase to 34.6ml/hr, pt receiving 913 kcal from propofol. Pt cont to receive insulin Lispro SS 2-10 units SUBQ. Noteable elevated labs include: WBC 14.9, BUN 33, Creatinine 1.3, random BG 223, AST 308, ALT 386, creatine kinase 239. Noteable low labs include: Hgb 12.6, Hct 38.8, and Alb 3.1. Will cont monitor labs and diet. MR 8/ Pt cont intubated and NPO. Pt reciecing TPN at 83ml/hr plus propofol at 51.8mls/hr. Current order is [id number] kcal and 100G proten which is meeting nutr needs. Alb declined to 2.9. Bg ranging 138-262, creatinine is now WNR at 1.1. Will cont to monitor. CARLOS CURRY Mar 05, 2018 10:11
[2018-03-05] MEDS: VANCOMYCIN(*) 1 GM VIAL 1 GM, VANCOMYCIN HCL 0.750 GM VIAL 0.75 GM in NS(*) 0.9% 250 ML... IVPB SCH ×2 (12:02→23:26)
[2018-03-06] VITALS (54 sets, daily range): BP systolic 86–137; BP diastolic 35–102
[2018-03-06] MEDS: PROPOFOL(*)1000 MG/100 ML VIAL 100 ML IV PRN ×12 (00:13→23:01)
[2018-03-06] MEDS: HYDROCORTISONE 100 MG/2 ML IVP SCH ×3 (01:16→17:59)
[2018-03-06] MEDS: IMIPENEM/CILASTA(*) 500MG VIAL 400 MG in NS(*) 0.9% 100 ML BAG 100 ML IVPB SCH ×2 (01:16→08:14)
[2018-03-06] MEDS: LEVOFLOXACIN/D5W 750 MG/150 ML 150 ML IVPB SCH (02:41)
[2018-03-06 05:30] LABS: PLATELET COUNT, AUTOMATED 185 K/uL (150-450)
[2018-03-06] MEDS: NS(*) 0.9% 1000 ML BAG 1,000 ML IV PRN (06:22)
[2018-03-06] MEDS: INSULIN HUM LISPRO 100 UN/ML 3 ML VIAL SUBQ PRN ×3 (06:46→17:59)
[2018-03-06] MEDS ORDERED: FUROSEMIDE 40 MG/4 ML VIAL IVP SCH (09:00)
[2018-03-06] MEDS: ENOXAPARIN 40 MG/0.4ML SYR SC SCH (09:09)
[2018-03-06] MEDS: ORAL SUCTION/CHLORHX/SWAB KIT MT SCH ×2 (09:10→21:15)
[2018-03-06] MEDS: PANTOPRAZOLE SOD 40 MG IV VIAL IVP SCH ×2 (09:16→21:13)
[2018-03-06] MEDS: INS HUM REG* 100 U/ML(ER ONLY) 20 UNIT, MULTIVITAMINS(*) 10 ML VIAL 10 ML, TRACE METALS... IV SCH (09:48)
[2018-03-06] MEDS: VANCOMYCIN(*) 1 GM VIAL 1 GM, VANCOMYCIN HCL 0.750 GM VIAL 0.75 GM in NS(*) 0.9% 250 ML... IVPB SCH (12:03)
--- NOTE | 2018-03-06 12:32 | Hospitalist Progress Note ---
Subjective Progress Notes Subjective 47M presented with acute hypoxic respiratory failure, remains intubated and sedated. Physical Exam Vital Signs Date Time Temp Pulse Resp B/P (MAP) Pulse Ox O2 Delivery O2 Flow Rate FiO2 03/06/18 12:00 72 03/06/18 11:30 23 108/68 (81) 88 Mechanical Ventilator 03/06/18 11:20 30.0 03/06/18 08:00 98.0 Intake and Output 03/07/18 07:00 Intake Total 121 ml Output Total 2200 ml Balance -2079 ml Intake IV Total 121 ml Output Urine Total 2200 ml General Appearance: Afebrile Neuro: No Gross deficits Eyes: Other (PERRL, pinpoint pupils) ENT: Normal (intubated) Neck: No Masses Cardiovascular: Normal Rhythm & Peripheral Pulses Respiratory: Other (ventilated) Chest: No Masses GI: Soft and Non-Tender (obese) : Normal Lymph: Cervical Nodes Benign Extremities: Warm, Pulses, Perfused Integumentary: Skin Intact without Lesion / Mass Result Diagram: 03/06/18 0508 03/06/18 0508 Monitor Interpretation: Sinus Bradycardia Assessment and Plan Problems: (1) Acute respiratory failure Assessment & Plan: He was intubated in the emergency department on 03/01/2018. He is receiving propofol for sedation. Repeat ABGs show resolution of his respiratory acidosis. He was initially requiring high FiO2 and did not tolerate lying flat with significant desaturations. FiO2 has now been decreased to 30%. He is occasionally over-breathing the rate of the vent (16). Will try to wean rate today as tolerated. He was started on a Heparin drip for concern of PE , but a CTA of the chest was negative so this was discontinued. He is now on Lovenox for DVT prophylaxis. He is on Protonix. We also started nutrition with TPN. CPAP as tolerated. (2) Bacterial pneumonia Assessment & Plan: He has bibasilar infiltrates on CT scan and his WBC was increased (on prednisone). He was started on empiric treatment with IV Zosyn, vancomycin, and levofloxacin (he had been on two courses of antibiotics recently for cellulitis). Zosyn was then switched to Primaxin. WBC is now in normal range. He is afebrile and requiring less FiO2. Blood cultures are negative to date. (3) Septic shock Assessment & Plan: He presented with an elevated lactate and hypotension. He was requiring a norepinephrine drip and completed an initial fluid bolus. Now off of norepinephrine. He continues on stress dose IV hydrocortisone - currently 50mg IV bid. Lactate normalized. Resolved. (4) Elevated brain natriuretic peptide (BNP) level Assessment & Plan: An echocardiogram showed normal LV function (EF 55-60%) with grade I diastolic dysfunction. Repeat BNP on 03/03 was normal at 19. Gentle diuresis to optimize respiratory status. (5) Elevated troponin Assessment & Plan: Likely secondary to the strain of sepsis and mild renal failure. Troponins trended back downward. (6) Acute renal failure Assessment & Plan: Improved/resolved with IV fluids. (7) DM2 (diabetes mellitus, type 2) Assessment & Plan: He has been on chronic treatment with metformin, which has been held. We have placed him on sliding scale insulin as needed. (8) Elevated liver enzymes Status: Acute Assessment & Plan: Etiology unclear, but likely related to acute illness/ hepatosteatosis. Improving - will continue to monitor. Exam Sepsis Risk: No Definite Risk RITTER GAL ACHARYA DO Mar 06, 2018 12:32
[2018-03-06] MEDS: IMIPENEM/CILASTA(*) 500MG VIAL 500 MG in NS(*) 0.9% 100 ML BAG 100 ML IVPB SCH ×2 (14:07→20:19)
[2018-03-06] MEDS ORDERED: METF-411 PO (17:40)
[2018-03-06] MEDS: FUROSEMIDE 40 MG/4 ML VIAL IVP SCH (21:14)
[2018-03-07] VITALS (66 sets, daily range): BP systolic 78–142; BP diastolic 40–83
[2018-03-07] MEDS: VANCOMYCIN(*) 1 GM VIAL 1 GM, VANCOMYCIN HCL 0.750 GM VIAL 0.75 GM in NS(*) 0.9% 250 ML... IVPB SCH ×3 (00:01→23:53)
[2018-03-07] MEDS: INSULIN HUM LISPRO 100 UN/ML 3 ML VIAL SUBQ PRN ×4 (00:33→17:38)
[2018-03-07] MEDS: PROPOFOL(*)1000 MG/100 ML VIAL 100 ML IV PRN ×4 (00:42→06:17)
[2018-03-07] MEDS: HYDROCORTISONE 100 MG/2 ML IVP SCH ×3 (02:15→17:38)
[2018-03-07] MEDS: IMIPENEM/CILASTA(*) 500MG VIAL 500 MG in NS(*) 0.9% 100 ML BAG 100 ML IVPB SCH ×4 (02:15→19:48)
[2018-03-07] MEDS: LEVOFLOXACIN/D5W 750 MG/150 ML 150 ML IVPB SCH (03:02)
--- NOTE | 2018-03-07 03:22 | RADIOLOGY IMAGING REPORT ---
FACILITY: [facility] [place] PATIENT NAME: Neo Diaz : 1970 MR: [id number] V: [id number] EXAM DATE: ORDERING PHYSICIAN: VIOLETA MCKENNA TECHNOLOGIST: Location: [facility] [place] Patient: Neo Diaz : 1970 Visit/Account:[id number] Date of Sevice: 03/06/2018 AP CHEST 03/06/2018 5:19 AM. INDICATION: Intubated, pneumonia. COMPARISON: Yesterday. FINDINGS: Endotracheal tube terminates at the level of the clavicles. Esophagogastric tube likely terminates i n the mid to upper thoracic esophagus. Lungs remain hypoexpanded, with increased subsegmental atelec tasis in the right midlung. No apparent pleural effusion or pneumothorax. Heart size is unchanged. IMPRESSION: 1. Persistent hypoexpansion with slightly increased atelectasis. 2. Esophagogastric tube likely terminates in the mid to upper thoracic esophagus Report Dictated By: Mandeep Gutierrez MD at 03/06/2018 5:33 AM Report E-Signed By: Mandeep Gutierrez MD at 03/06/2018 5:37 AM WSN:[id number]
[2018-03-07 05:26] LABS: PLATELET COUNT, AUTOMATED 177 K/uL (150-450)
[2018-03-07] MEDS: ORAL SUCTION/CHLORHX/SWAB KIT MT SCH (08:06)
[2018-03-07] MEDS: FUROSEMIDE 40 MG/4 ML VIAL IVP SCH ×2 (08:25→20:28)
[2018-03-07] MEDS: ENOXAPARIN 40 MG/0.4ML SYR SC SCH (08:25)
[2018-03-07] MEDS: PANTOPRAZOLE SOD 40 MG IV VIAL IVP SCH ×2 (08:25→20:36)
--- NOTE | 2018-03-07 08:35 | Antimicrobial Stewardship ---
Antimicrobial Time Out Antimicrobial Stewardship MD Service: Hospitalist Indications: CAP Antimicrobial Used Vancomycin, Primaxin, Levofloxacin Start Date: Mar 01, 2018 Culture Results: Yes (Blood Cx and Urine Cx - NGTD) Eligible for PO Conversion Eligable for PO Conversion: No Reviewed with Provider Reviewed w/ Provider on Rounds: Yes Date Reviewed w/ Provider: Mar 07, 2018 (Plan for minimum of 10 days of antibiotics) Comments Comments 1. CAP- Pt with prior courses of antibiotics as an outpatient and steroids, started on broad spectrum antibiotics. T max - 100 on admission, now afebrile WBC - 19.3, 14.9 (on steroids), 11.2 Vancomycin Troughs- 11.26, 19.96, 22.14, 18.85, 18.51- next trough, 03/08/18 at 1100 Chest xray- showed infiltrates, dense multilobar opacities CTA- no evidence of PE Vancomycin Trough - 03/03/18-- 19.96, keep on Vancomycin 1.75g IV q12h, trough tomorrow Changed Zosyn to Primaxin secondary to LFT elevation Plan to continue Antibiotics for a minimum of 10 days, extubated today, on BIPAP , continue to monitor, LFTs improved. Will follow and de-escalate as appropriate. Rayne Huynh, PharmD, BCOP RAYNE HUYNH Mar 07, 2018 08:25
--- NOTE | 2018-03-07 08:41 | Hospitalist Progress Note ---
Subjective Progress Notes Subjective Sedation has been stopped and he does follow simple commands. He is still intubated. Physical Exam Vital Signs Date Time Temp Pulse Resp B/P (MAP) Pulse Ox O2 Delivery O2 Flow Rate FiO2 03/07/18 08:15 50.0 03/07/18 08:15 96 Bi-PAP 03/07/18 07:50 18 03/07/18 06:30 64 03/07/18 06:30 116/65 (82) 03/07/18 05:00 98.2 General Appearance: Alert, Awake, Other (follows simple commands) ENT: Other (ET/OG tubes in place) Neck: Other (short/thick ma/R IJ site looks good) Cardiovascular: Regular Rate and Rhythm (distant tones) Respiratory: Other (few scattered rhonchi/coarse sounds bilaterally) GI: Other (Obese/soft/BS present) Extremities: Warm, Perfused, Edema Integumentary: Other (chronic venous stasis changes both LE) Result Diagram: 03/07/18 0450 03/07/18 0450 Monitor Interpretation: Normal Sinus Rhythm Assessment and Plan Problems: (1) Acute respiratory failure Assessment & Plan: He was intubated in the emergency department on 03/01/2018. He has been receiving propofol for sedation. Repeat ABGs show resolution of his respiratory acidosis. He was initially requiring high FiO2 and did not tolerate lying flat with significant desaturations. FiO2 has now been decreased to 30%. He has received approximately a week of therapy for his bilateral pneumonia. He has tolerated some short periods on CPAP. Respiratory reports NIF of -29 this AM. He will most likely be bale to be extubated, but will almost certainly need BiPAP at fairly high pressures initially. It does appear he is a significant "hypoventilator" and will most likely need ongoing BiPAP with sleep. (2) Bacterial pneumonia Assessment & Plan: He has bibasilar infiltrates on CT scan and his WBC was increased (on prednisone). He was started on empiric treatment with IV Zosyn, vancomycin, and levofloxacin (he had been on two courses of antibiotics recently for cellulitis). Zosyn was then switched to Primaxin. WBC did return to normal range (now slightly elevated on Solu-Cortef). He is afebrile and requiring less FiO2. Blood cultures are negative to date. Most likely extubate this AM. (3) Septic shock Assessment & Plan: He presented with an elevated lactate and hypotension. He was requiring a norepinephrine drip and completed an initial fluid bolus. Now off of norepinephrine. He continues on stress dose IV hydrocortisone - currently 50mg IV bid. Lactate normalized. (4) Elevated brain natriuretic peptide (BNP) level Assessment & Plan: An echocardiogram showed normal LV function (EF 55-60%) with grade I diastolic dysfunction. Repeat BNP on 03/03 was normal at 19. Gentle diuresis to optimize respiratory status. (5) Elevated troponin Assessment & Plan: Likely secondary to the strain of sepsis and mild renal failure. Troponins trended back downward. (6) Acute renal failure Assessment & Plan: Improved/resolved with IV fluids. (7) DM2 (diabetes mellitus, type 2) Assessment & Plan: He has been on chronic treatment with metformin, which has been held. We have placed him on sliding scale insulin as needed. (8) Elevated liver enzymes Status: Acute Assessment & Plan: Etiology unclear, but likely related to acute illness/ hepatosteatosis. Improving - will continue to monitor. Exam Sepsis Risk: No Definite Risk VIOLETA MCKENNA MD Mar 07, 2018 08:40
[2018-03-07] MEDS: KCL (*) 20 MEQ/100 ML PREMIX 100 ML IV SCH ×2 (09:29→11:40)
[2018-03-07] MEDS: INS HUM REG* 100 U/ML(ER ONLY) 20 UNIT, MULTIVITAMINS(*) 10 ML VIAL 10 ML, TRACE METALS... IV SCH (09:30)
[2018-03-07] MEDS: PROMETHAZINE 25 MG/ML 1 ML AMP IVP PRN ×3 (11:40→20:08)
[2018-03-07] MEDS ORDERED: PROMETHAZINE 25 MG/ML 1 ML AMP ONE (11:45)
[2018-03-07] MEDS: NS(*) 0.9% 1000 ML BAG 1,000 ML IV PRN (17:49)
[2018-03-07] MEDS: ACETAMINOPHEN(*)1000 MG/100 ML 100 ML IVPB SCH (23:52)
[2018-03-08] VITALS (32 sets, daily range): BP systolic 94–136; BP diastolic 46–80
[2018-03-08] MEDS: INSULIN HUM LISPRO 100 UN/ML 3 ML VIAL SUBQ PRN ×4 (00:29→21:11)
[2018-03-08] MEDS: HYDROCORTISONE 100 MG/2 ML IVP SCH ×2 (03:02→14:02)
[2018-03-08] MEDS: IMIPENEM/CILASTA(*) 500MG VIAL 500 MG in NS(*) 0.9% 100 ML BAG 100 ML IVPB SCH ×2 (03:03→07:39)
[2018-03-08] MEDS: PROMETHAZINE 25 MG/ML 1 ML AMP IVP PRN (03:06)
[2018-03-08] MEDS: LEVOFLOXACIN/D5W 750 MG/150 ML 150 ML IVPB SCH (03:06)
[2018-03-08 05:12] LABS: PLATELET COUNT, AUTOMATED 176 K/uL (150-450)
[2018-03-08] MEDS: ACETAMINOPHEN(*)1000 MG/100 ML 100 ML IVPB SCH (05:56)
[2018-03-08] MEDS ORDERED: INS HUM REG U IV SCH (07:54)
[2018-03-08] MEDS ORDERED: MULTIVITAMINS IV SCH (07:54)
[2018-03-08] MEDS ORDERED: [UNRECOGNIZED DRUG - OTHER] IV SCH (07:54)
[2018-03-08] MEDS ORDERED: CODEINE SULFATE 30 MG TAB PO PRN (07:55)
[2018-03-08] MEDS ORDERED: ALBUTEROL 2.5 MG/3 ML NEB NEB PRN (07:55)
[2018-03-08] MEDS ORDERED: BISACODYL 10 MG SUPP PR PRN (08:15)
[2018-03-08] MEDS ORDERED: MAGNESIUM HYDROXIDE* 30ML UDCP PO PRN (08:15)
[2018-03-08] MEDS: FUROSEMIDE 40 MG/4 ML VIAL IVP SCH ×2 (08:55→21:10)
[2018-03-08] MEDS: ENOXAPARIN 40 MG/0.4ML SYR SC SCH (08:55)
[2018-03-08] MEDS: PANTOPRAZOLE SOD 40 MG IV VIAL IVP SCH ×2 (08:55→21:10)
[2018-03-08] MEDS: guaiFENesin 600 MG TABCR PO SCH ×2 (08:56→21:10)
[2018-03-08] MEDS ORDERED: POTASSIUM CHL PWDR 20 MEQ PKT PO SCH (09:00)
[2018-03-08] MEDS: TAMSULOSIN HCL 0.4 MG CAP PO SCH (09:01)
[2018-03-08] MEDS: DOCUSATE SODIUM 100 MG CAP PO SCH ×2 (09:02→21:10)
[2018-03-08] MEDS: POLYETHYLENE GLYCOL 17 GM PKT PO SCH (09:13)
[2018-03-08] MEDS: POTASSIUM CHL 20 MEQ TABCR PO SCH ×2 (09:13→17:08)
--- NOTE | 2018-03-08 09:13 | Medical Nutrition Therapy ---
Nutrition Anthropometrics Height (Inches): 73.00 Height (Calculated Centimeters: [phone] Weight (Pounds): 425 Weight (Calculated Kilograms): 192.777 BMI: 57.1 Morgan Nutrition Score: Probably Inadequate Morgan Nutrition Risk Score: 13 Dietary Referral Nutrition Risk Factors: Mech. Ventilated Nutrition Risk Comment: Physical Findings Physical Appearance: Morbidly Obese 40+ Skin Appearance Skin Appearance: Edema Edema Location Modifier: Both Edema Location: Lower Extremity Type of Edema: Degree of Edema: 3+ Gastrointestinal Symptoms GI Symtoms: Constipation Tube Present: Bowel Sounds: Recent Bowel Pattern: Stool Characteristics: Nutritional Diagnosis Nutritional Risk Acuity 1: TPN/PPN, Pulm Fail Vent Nutritional Risk Acuity 2: Sepsis Nutritional Risk Acuity 3: Morbid Obesity Past Medical History: Hx of T2DM and COPD exacerbation. Nutritional Acuity: 1-High Nutrition Diagnosis: Over-weight/Obesity Nutrition Etiology: Physiological Causes Adjusted Energy Requirement Re: 3100 (M- St J X 1.2 AF X 1.1 SF) Protein Requirement: 97 (1.1gm/kg IBWR) Fluid Requirement: 3047 Diet Type: NPO (Nothing by Mouth), TPN/PPN Nutrition Intervention: Nutrition support, Incr diet as tolerated Nutritional Support Current Enteral / Parental: TPN Rate: 42 ml/hr Current Calories: 880 Current Protein: 50 Total Current Calories: 880 Nutrition Monitoring & Eval Nutrition Goals: Eat 75-100% Meal RD Patient Assessment Time: [address] Assessment Type: RD Re-Assessment Patient Nutrition Acuity: 1-High Follow Up Date: Mar 10, 2018 Nutritional Comment: 03/02. Admitted for hypoxia and altered mental status. Pt currently being treated for acute respiratory failure, bacterial pnneumonia, septic shock, elevated troponin, elevated brain natriuretic peptide level, and T2DM. Pt is NPO and was inubated and sedated on 03/01, currently receiving Propfol rate of 28.8ml/hr. Pt also receiving 2-10 units Lispro SS SUBQ. Noteable labs include: Low Hgb 13.3 and calcuim 7.5. Elevated WBC 17.3, BUN 32, Creatinine 1.5, and random BG 234. Pt has BMI of 55.8, considered morbidly obese. Will monitor pt weight, labs, and diet. MR 03/03. Pt still on NPO- day 2. Being treated for respiratory failure and sepsis. Cont intubation and sedation. Propofol rate increase to 34.6ml/hr, pt receiving 913 kcal from propofol. Pt cont to receive insulin Lispro SS 2-10 units SUBQ. Noteable elevated labs include: WBC 14.9, BUN 33, Creatinine 1.3, random BG 223, AST 308, ALT 386, creatine kinase 239. Noteable low labs include: Hgb 12.6, Hct 38.8, and Alb 3.1. Will cont monitor labs and diet. MR 03/05 Pt cont intubated and NPO. Pt reciecing TPN at 83ml/hr plus propofol at 51.8mls/hr. Current order is [id number] kcal and 100G proten which is meeting nutr needs. Alb declined to 2.9. Bg ranging 138-262, creatinine is now WNR at 1.1. Will cont to monitor. BK 03/07 Pt has been extubated and is weaning from TPN. Recommend increase to diabetic diet as tolerated. Alb low at 3.3 but is improving. BG ranging in 200's. Will cont to monitor. CARLOS CURRY Mar 08, 2018 09:13
--- NOTE | 2018-03-08 09:28 | Hospitalist Progress Note ---
Subjective Progress Notes Subjective This patient was admitted for sepsis secondary to pneumonia. He had no acute issues overnight. Patient Complains of: Cardiovascular: No: Chest Pain Respiratory: No: Shortness of Breath Physical Exam Vital Signs Date Time Temp Pulse Resp B/P (MAP) Pulse Ox O2 Delivery O2 Flow Rate FiO2 03/08/18 08:46 74 03/08/18 08:30 113/62 (79) 99 High-Flow Nasal Cannula 4.0 03/08/18 08:00 17 03/08/18 07:30 98.3 03/08/18 04:30 35.0 Intake and Output 03/08/18 07:00 Intake Total 4209.2 ml Output Total 7380 ml Balance -3170.8 ml Intake Oral 30 ml IV Total 4179.2 ml Output Urine Total 7380 ml # Bowel Movements 0 Cardiovascular: Regular Rate and Rhythm Respiratory: Clear to Auscultation Extremities: Edema Integumentary: No Cyanosis Result Diagram: 03/08/18 0501 03/08/18 0501 Item Value Date Time Urine Culture - Final Complete 03/02/18 0902 Cath Urine NO GROWTH AFTER 2 DAYS Blood Culture - Final Complete 03/01/18 2215 Blood NO GROWTH AFTER 5 DAYS IN BOTH THE AE... Blood Culture - Final Complete 03/01/18 2115 Blood Line Draw NO GROWTH AFTER 5 DAYS IN BOTH THE AE... Monitor Interpretation: Normal Sinus Rhythm Assessment and Plan Problems: (1) Acute respiratory failure Assessment & Plan: He was intubated in the emergency department on 03/01/2018. He was extubated yesterday. He continues to get BiPAP with sleep. (2) Bacterial pneumonia Assessment & Plan: He has bibasilar infiltrates on CT scan and his WBC was increased (on prednisone). He was started on empiric treatment with IV Zosyn, vancomycin, and levofloxacin (he had been on two courses of antibiotics recently for cellulitis). Zosyn was then switched to Primaxin. He has been afebrile over the last week and cultures have been negative. Antibiotics have been discontinued after an 8 day course. (3) Septic shock Assessment & Plan: He presented with an elevated lactate and hypotension. He did require a norepinephrine infusion, but is now maintaining his blood pressure independently. He has been receiving stress dose hydrocortisone, which is being weaned down. (4) Acute renal failure Assessment & Plan: Improved/resolved with IV fluids. (5) DM2 (diabetes mellitus, type 2) Assessment & Plan: He has been on chronic treatment with metformin, which has been held. We have placed him on sliding scale insulin as needed. (6) Elevated liver enzymes Status: Acute Assessment & Plan: Etiology unclear, but likely related to acute illn ess/hepatosteatosis. Improving - will continue to monitor. Exam Sepsis Risk: No Definite Risk HUGO MIRZA DO Mar 08, 2018 09:28
[2018-03-08] MEDS ORDERED: FURO-47 PO (10:30)
[2018-03-08] MEDS ORDERED: POTA-53 PO (10:30)
[2018-03-08] MEDS ORDERED: OXYGENHOME INH (10:33)
--- NOTE | 2018-03-08 12:31 | SLP BEDSIDE SWALLOW EVALUATION ---
DYSPHAGIA loan service officer: Tabatha Fong MS, [facility] MA[facility] Type of Assessment: Dysphagia Evaluation Patient: Neo Diaz : 1970 Evaluation Date: 03/08/2018 BACKGROUND The patient is a 47yo old male admitted to [facility] following ED visit on 03/01 w/ complaints of shortness of breath. He required intubation in the ED due to respiratory failure with successful extubation occurring on 03/07. Pt with hx of COPD. CXR was significant for suspected bacterial pneumonia with bilateral infiltrates. An ST swallow evaluation was ordered to evaluate swallow structure and function s/p extubation, and make appropriate recommendations for safe initiation of PO intake. Primary Medical Diagnosis: acute respiratory failure. Medical hx: COPD bacterial pneumonia, septic shock, elevated brain natriuretic peptide level, elevated troponin, acute renal failure, DM2 Pain Scale (0-10): Patient w/ no reports of pain. LOC / Participation: alert, cooperative, slowed responses, inconsistent verbalizations Follows instructions: yes, single level Orientation: A&O x2 (person, location, disoriented to time, situation) Functional Communication Deficits impact swallow function/safety, or response to therapy: yes; recommend 1:1 supervision and feeding assistance with all PO intake. VOICE: mild hoarseness DYSPHAGIA Sialorrhea: No Xerostomia: No Supplemental Oxygen Use: Yes. 4.0L via high-flow NC. Oxygen Saturation: >95%. No irregularity noted w/ PO intake. Respiratory Rate: 15-17, steady COPD Dx: Yes Pain with Swallow: Denies Oropharyngeal Structure and Function: Oromotor exam was remarkable for mild, generalized reduction in speed and strength of oral musculature. Pt also with partially missing dentition, top and bottom rows. Adequate ROM and coordination observed. Pt able to elicit protective cough when prompted, although somewhat weak and hoarse. No vocal wetness observed. Administered PO trials of the following: thin liquids via tsp, cup, and straw, pureed solids, soft solids, mixed solids, and regular solids. Pt was also analyzed with medication administration in conjunction with RN. Decreased speed and strength of oral musculature resulted in mildly prolonged mastication time with soft and hard solids. No post-swallow residue noted. Pt tolerated tsp and cup sips of thin liquids without difficulty. Advancing to thin liquids via straw, majority of attempts were also tolerated with no overt s/sx of aspiration. However, after participating in solid trials, final straw sip was attempted and resulted in immediate, aggressive cough response. Similar reaction was noted with attempts to administer hard, crunchy solids. Pt did well with medications, one at a time, with small sips of thin liquids. Respiratory/Swallow Coordination: Increased work of breathing noted immediately after each PO trial, likely d/t brief period of apnea experienced during pharyngeal swallow execution. ST ASSESSMENT SUMMARY Recommendations: Diet: dysphagia III solids, thin liquids Medications: pills whole, one at a time; pair with small, single sips of thin liquids or immerse in puree if difficulty is observed. Compensatory strategies: upright positioning during PO intake, upright positioning 30 min after PO intake, regular oral care, limit distractions during meals, one bite/sip at a time, small bites/sips, provide ample time to participate in meals, take rest breaks for respiration, NO straws, adhere to reflux recommendations as outlined and posted at bedside. Supervision during PO intake: constant supervision with PO intake. Provide hand over hand assistance for eating and drinking. Control rate with thin liquids. Aspiration Risk: moderately increased 2nd compromised respiratory status, inconsistent s/sx of aspiration with thin liquids and dry solids, hx of COPD. Speech Therapy Need ST will continue to analyze oropharyngeal swallow status and make appropriate diet advancement recommendations. ST will also continue to provide educational information re: compensatory strategies to minimize risk for aspiration pneumonia and promote safe, efficient tolerance of least restrictive diet. PLAN OF CARE Short Term Goals 1. Patient and caregivers will receive ongoing education re: safe swallow precautions, diet modification recommendations, and compensatory techniques, and will provide verbal/visual demonstration of comprehension with 100% accuracy. 2. The patient will participate in food/liquid trials with ST to advance diet as indicated for safe oral intake. Fpc Goals 1. The patient will safely and efficiently tolerate regular diet and thin liquids with independent implementation of safe swallow strategies and minimized s/s of dysphagia. Rehabilitation Prognosis: Good. High prior level of oral intake. No documented recurrent episodes of pneumonia. Thank you for this referral. Tabatha Fong M.S., [facility] Speech Therapist Physician Signature Date [facility]
[2018-03-09] VITALS (15 sets, daily range): BP systolic 84–122; BP diastolic 43–73
[2018-03-09] MEDS: HYDROCORTISONE 100 MG/2 ML IVP SCH (01:21)
[2018-03-09 05:35] LABS: PLATELET COUNT, AUTOMATED 195 K/uL (150-450)
[2018-03-09] MEDS ORDERED: KCL (*) 20 MEQ/100 ML PREMIX 100 ML IV ONE (08:15)
[2018-03-09] MEDS: POLYETHYLENE GLYCOL 17 GM PKT PO SCH (08:38)
[2018-03-09] MEDS: PANTOPRAZOLE SOD 40 MG TABEC PO SCH (08:38)
[2018-03-09] MEDS: POTASSIUM CHL 20 MEQ TABCR PO SCH ×2 (08:38→17:22)
[2018-03-09] MEDS: guaiFENesin 600 MG TABCR PO SCH ×2 (08:38→20:23)
[2018-03-09] MEDS: ENOXAPARIN 40 MG/0.4ML SYR SC SCH (08:38)
[2018-03-09] MEDS: DOCUSATE SODIUM 100 MG CAP PO SCH ×2 (08:38→20:23)
[2018-03-09] MEDS: TAMSULOSIN HCL 0.4 MG CAP PO SCH (08:38)
[2018-03-09] MEDS ORDERED: TIOTROPIUM BROM INH 18 MCG/CAP INH ONE (09:00)
[2018-03-09] MEDS: TIOTROPIUM BROM INH 18 MCG/CAP INH SCH (09:28)
--- NOTE | 2018-03-09 11:19 | Hospitalist Progress Note ---
Subjective Progress Notes Subjective 47M admitted for acute hypoxic/hypercapnic respiratory failure. SAFIA overnight. Slow to respond to questions but this is baseline. Only tolerated BiPAP for 2 hours last night. Patient Complains of: Neurological: No: Syncope, Confusion Cardiovascular: No: Chest Pain, Palpitations Respiratory: Cough Gastrointestinal: No Nausea, No Vomiting Genitourinary: No Dysuria Musculoskeletal: No: Pain Physical Exam Vital Signs Date Time Temp Pulse Resp B/P (MAP) Pulse Ox O2 Delivery O2 Flow Rate FiO2 03/09/18 09:30 35.0 03/09/18 09:30 93 18 03/09/18 09:00 114/63 (80) 96 High-Flow Nasal Cannula 4.0 03/09/18 07:00 98.9 Intake and Output 03/09/18 07:00 Intake Total 1285 ml Output Total 6755 ml Balance -5470 ml Intake Oral 650 ml IV Total 635 ml Output Urine Total 6755 ml # Bowel Movements 2 General Appearance: Alert, Awake, No Acute Distress, Afebrile Neuro: No Gross deficits Eyes: PERRLA ENT: Normal Neck: No Masses Cardiovascular: Normal Rhythm & Peripheral Pulses Respiratory: Clear to Auscultation (diminished) Chest: No Tenderness GI: Soft and Non-Tender : Normal (+ nash) Lymph: Cervical Nodes Benign Musculoskeletal: No Weakness/Pain Extremities: Soft and Non Tender, Warm, Pulses, Edema Integumentary: Skin Intact without Lesion / Mass Psych: Alert & Oriented X3 Result Diagram: 03/09/18 0517 03/09/18 0517 Monitor Interpretation: Normal Sinus Rhythm Assessment and Plan Problems: (1) Acute respiratory failure Assessment & Plan: He was intubated in the emergency department on 03/01/2018. He was extubated 03.07.2018. He continues to get BiPAP with sleep. Suspect chronic hypercapnia 2/2 obesity hypoventilation syndrome. (2) Bacterial pneumonia Assessment & Plan: He has bibasilar infiltrates on CT scan and his WBC was increased (on prednisone). He was started on empiric treatment with IV Zosyn, vancomycin, and levofloxacin (he had been on two courses of antibiotics recently for cellulitis). Zosyn was then switched to Primaxin. He has been afebrile over the last week and cultures have been negative. Antibiotics have been discontinued after an 8 day course. Remains afebrile, clinically improving. (3) Septic shock Status: Resolved Assessment & Plan: He presented with an elevated lactate and hypotension. He did require a norepinephrine infusion, but is now maintaining his blood pressure independently. He has been receiving stress dose hydrocortisone, which is now discontinued after taper. Resolved (4) Acute renal failure Status: Resolved Assessment & Plan: Improved/resolved with IV fluids. (5) DM2 (diabetes mellitus, type 2) Assessment & Plan: He has been on chronic treatment with metformin, which has been held. We have placed him on sliding scale insulin as needed. (6) Elevated liver enzymes Status: Acute Assessment & Plan: Etiology unclear, but likely related to acute illness/hepatosteatosis. Improving - will continue to monitor. Exam Sepsis Risk: No Definite Risk RITTER GAL ACHARYA DO Mar 09, 2018 11:19
[2018-03-09] MEDS: INSULIN HUM LISPRO 100 UN/ML 3 ML VIAL SUBQ PRN ×2 (17:22→20:48)
[2018-03-10 03:23] VITALS: BP 111/80
[2018-03-10 05:44] LABS: PLATELET COUNT, AUTOMATED 185 K/uL (150-450)
[2018-03-10] MEDS: TIOTROPIUM BROM INH 18 MCG/CAP INH SCH (06:04)
[2018-03-10 08:05] VITALS: BP 136/78
[2018-03-10] MEDS: POLYETHYLENE GLYCOL 17 GM PKT PO SCH (09:07)
[2018-03-10] MEDS: guaiFENesin 600 MG TABCR PO SCH ×2 (09:07→20:55)
[2018-03-10] MEDS: FUROSEMIDE 40 MG TAB PO SCH (09:07)
[2018-03-10] MEDS: ENOXAPARIN 40 MG/0.4ML SYR SC SCH (09:07)
[2018-03-10] MEDS: POTASSIUM CHL 20 MEQ TABCR PO SCH ×2 (09:07→17:47)
[2018-03-10] MEDS: DOCUSATE SODIUM 100 MG CAP PO SCH ×2 (09:07→20:55)
[2018-03-10] MEDS: TAMSULOSIN HCL 0.4 MG CAP PO SCH (09:08)
[2018-03-10] MEDS: PANTOPRAZOLE SOD 40 MG TABEC PO SCH (09:08)
[2018-03-10 09:11] VITALS: BP 121/75
--- NOTE | 2018-03-10 09:30 | Hospitalist Progress Note ---
Subjective Progress Notes Subjective 47M admitted for acute hypoxic/hypercapnic respiratory failure. He had no acute events overnight. He is still slow to respond to questions, but this is baseline. He only tolerated BiPAP for 2 hours last night. Patient Complains of: Cardiovascular: No: Chest Pain Physical Exam Vital Signs Date Time Temp Pulse Resp B/P (MAP) Pulse Ox O2 Delivery O2 Flow Rate FiO2 03/10/18 09:20 94 Bi-PAP 03/10/18 09:17 35.0 03/10/18 09:11 98.4 84 20 121/75 (90) 8.0 Intake and Output 03/10/18 07:00 Intake Total 1184 ml Output Total 1195 ml Balance -11 ml Intake Oral 1080 ml IV Total 104 ml Output Urine Total 1195 ml General Appearance: Alert, Awake, No Acute Distress, Afebrile Neuro: No Gross deficits Cardiovascular: Regular Rate and Rhythm Respiratory: Clear to Auscultation, Other (diminished) GI: Soft and Non-Tender : Other (nash) Psych: Alert & Oriented X3, Appropriate Mood & Affect Result Diagram: 03/10/1827 03/10/18526 Monitor Interpretation: Normal Sinus Rhythm Assessment and Plan Problems: (1) Acute respiratory failure Assessment & Plan: He was intubated in the emergency department on 03/01/2018. He was extubated 03.07.2018. He continues to get BiPAP. Suspect chronic hypercapnia 2/2 obesity hypoventilation syndrome. (2) Bacterial pneumonia Assessment & Plan: He has bibasilar infiltrates on CT scan and his WBC was increased (on prednisone). He was started on empiric treatment with IV Zosyn, vancomycin, and levofloxacin (he had been on two courses of antibiotics recently for cellulitis). Zosyn was then switched to Primaxin. He has been afebrile over the last week and cultures have been negative. Antibiotics have been discontinued after an 8 day course. Remains afebrile, clinically improving. (3) Septic shock Status: Resolved Assessment & Plan: He presented with an elevated lactate and hypotension. He did require a norepinephrine infusion, but is now maintaining his blood pressure independently. He has been receiving stress dose hydrocortisone, which is now discontinued after taper. Resolved (4) Acute renal failure Status: Resolved Assessment & Plan: Improved/resolved with IV fluids. (5) DM2 (diabetes mellitus, type 2) Assessment & Plan: He has been on chronic treatment with metformin, which has been restarted. We have placed him on sliding scale insulin as needed. (6) Elevated liver enzymes Status: Acute Assessment & Plan: Etiology unclear, but likely related to acute illness/hepatosteatosis. Improving - will continue to monitor. Exam Sepsis Risk: No Definite Risk JOSEPH OLIVOP Mar 10, 2018 09:30
[2018-03-10 10:41] VITALS: BP 131/61
--- NOTE | 2018-03-10 13:21 | Medical Nutrition Therapy ---
Nutrition Anthropometrics Height (Inches): 73.00 Height (Calculated Centimeters: 185.375799 Weight (Pounds): 423 Weight (Calculated Kilograms): 191.870 BMI: 57.1 Morgan Nutrition Score: Adequate Morgan Nutrition Risk Score: 18 Dietary Referral Nutrition Risk Factors: Mech. Ventilated Nutrition Risk Comment: Physical Findings Physical Appearance: Morbidly Obese 40+ Skin Appearance Skin Appearance: Edema Edema Location Modifier: Both Edema Location: Lower Extremity Type of Edema: Degree of Edema: 3+ Gastrointestinal Symptoms GI Symtoms: Constipation Tube Present: Bowel Sounds: Recent Bowel Pattern: Stool Characteristics: Nutritional Diagnosis Nutritional Risk Acuity 3: Morbid Obesity Past Medical History: Hx of T2DM and COPD exacerbation. Nutritional Acuity: 3-Mild Nutrition Diagnosis: Over-weight/Obesity Nutrition Etiology: Physiological Causes Adjusted Energy Requirement Re: 3100 (M- St J X 1.2 AF X 1.1 SF) Protein Requirement: 97 (1.1gm/kg IBWR) Fluid Requirement: 3047 Diet Type: Dysphagia Stage 3 Nutrition Intervention: Incr diet as tolerated Drug: Diuretics (K+ depleting 40mg Q day) Nutrition Monitoring & Eval RD Patient Assessment Time: [address] Assessment Type: RD Re-Assessment Patient Nutrition Acuity: 3-Mild Follow Up Date: Mar 15, 2018 Nutritional Comment: 03/02. Admitted for hypoxia and altered mental status. Pt currently being treated for acute respiratory failure, bacterial pnneumonia, septic shock, elevated troponin, elevated brain natriuretic peptide level, and T2DM. Pt is NPO and was inubated and sedated on 03/01, currently receiving Propfol rate of 28.8ml/hr. Pt also receiving 2-10 units Lispro SS SUBQ. Noteable labs include: Low Hgb 13.3 and calcuim 7.5. Elevated WBC 17.3, BUN 32, Creatinine 1.5, and random BG 234. Pt has BMI of 55.8, considered morbidly obese. Will monitor pt weight, labs, and diet. MR 03/03. Pt still on NPO- day 2. Being treated for respiratory failure and sepsis. Cont intubation and sedation. Propofol rate increase to 34.6ml/hr, pt receiving 913 kcal from propofol. Pt cont to receive insulin Lispro SS 2-10 units SUBQ. Noteable elevated labs include: WBC 14.9, BUN 33, Creatinine 1.3, random BG 223, AST 308, ALT 386, creatine kinase 239. Noteable low labs include: Hgb 12.6, Hct 38.8, and Alb 3.1. Will cont monitor labs and diet. MR 8/ Pt cont intubated and NPO. Pt reciecing TPN at 83ml/hr plus propofol at 51.8mls/hr. Current order is [id number] kcal and 100G proten which is meeting nutr needs. Alb declined to 2.9. Bg ranging 138-262, creatinine is now WNR at 1.1. Will cont to monitor. BK 03/07 Pt has been extubated and is weaning from TPN. Recommend increase to diabetic diet as tolerated. Alb low at 3.3 but is improving. BG ranging in 200's. Will cont to monitor. BK 03/10. Pt no longer ventilated or receving TPN. Currenlty on a Dysphagia 3 diet, consuming 25-75% of small or regular meals. Pt receiving potassium depleting diuretic, 40mg Q day. Potassium levels low, 3.3. Other noteable labs include: low Hgb 11.9, Hct 36.6, albumin 2.8, and total protein 5.7. Elevated labs include: BUN 24, BG 115, random BG 123, and ALT 80. Pt cont tor receive insulin, 2-10 units Lispro SS SUBQ, and 500mg Metformin BID. Noticed weight fluctuation throughout admission, likely due to edema. Will cont to monitor ptweight, diet, and labs. ANJUM MURPHY Mar 10, 2018 11:05
[2018-03-10] MEDS: INSULIN HUM LISPRO 100 UN/ML 3 ML VIAL SUBQ PRN ×2 (13:39→17:47)
[2018-03-10 16:30] VITALS: BP 128/66
[2018-03-10] MEDS: metFORMIN HCL 500 MG TAB PO SCH (17:47)
[2018-03-10 21:47] VITALS: BP 131/66
[2018-03-11 03:11] VITALS: BP 125/58
[2018-03-11 05:43] LABS: PLATELET COUNT, AUTOMATED 183 K/uL (150-450)
[2018-03-11] MEDS: TIOTROPIUM BROM INH 18 MCG/CAP INH SCH (05:43)
[2018-03-11 07:46] VITALS: BP 122/73
[2018-03-11] MEDS: guaiFENesin 600 MG TABCR PO SCH ×2 (08:34→20:14)
[2018-03-11] MEDS: ENOXAPARIN 40 MG/0.4ML SYR SC SCH (08:34)
[2018-03-11] MEDS: PANTOPRAZOLE SOD 40 MG TABEC PO SCH (08:34)
[2018-03-11] MEDS: metFORMIN HCL 500 MG TAB PO SCH ×2 (08:34→17:23)
[2018-03-11] MEDS: POTASSIUM CHL 20 MEQ TABCR PO SCH ×2 (08:34→17:23)
[2018-03-11] MEDS: TAMSULOSIN HCL 0.4 MG CAP PO SCH (08:34)
[2018-03-11] MEDS: FUROSEMIDE 40 MG TAB PO SCH (08:34)
[2018-03-11] MEDS: POLYETHYLENE GLYCOL 17 GM PKT PO SCH (08:34)
[2018-03-11] MEDS: DOCUSATE SODIUM 100 MG CAP PO SCH ×2 (08:35→20:14)
--- NOTE | 2018-03-11 10:48 | Hospitalist Progress Note ---
Subjective Progress Notes Subjective This patient was admitted for sepsis and respiratory failure. He had no acute issues overnight. Patient Complains of: Cardiovascular: No: Chest Pain Respiratory: No: Shortness of Breath Physical Exam Vital Signs Date Time Temp Pulse Resp B/P (MAP) Pulse Ox O2 Delivery O2 Flow Rate FiO2 03/11/18 07:46 98.2 75 14 122/73 (89) 98 Bi-PAP 40.0 03/11/18 03:11 8.0 Intake and Output 03/11/18 07:00 Intake Total 880 ml Output Total 1200 ml Balance -320 ml Intake Oral 880 ml Output Urine Total 1200 ml # Bowel Movements 2 Cardiovascular: Regular Rate and Rhythm Respiratory: Clear to Auscultation Result Diagram: 03/11/18 0526 03/11/18 0526 Item Value Date Time Urine Culture - Final Complete 03/02/18 0902 [address] Urine NO GROWTH AFTER 2 DAYS Blood Culture - Final Complete 03/01/18 2215 Blood NO GROWTH AFTER 5 DAYS IN BOTH THE AE... Blood Culture - Final Complete 03/01/18 2115 Blood Line Draw NO GROWTH AFTER 5 DAYS IN BOTH THE AE... Monitor Interpretation: Normal Sinus Rhythm Assessment and Plan Problems: (1) Acute respiratory failure Assessment & Plan: He was intubated in the emergency department on 03/01/2018. He was extubated 03.07.2018. He continues to get BiPAP. Suspect chronic hypercapnia secondary to obesity hypoventilation syndrome. (2) Bacterial pneumonia Assessment & Plan: He had bibasilar infiltrates on CT scan and his WBC was increased (on prednisone). He was started on empiric treatment with IV Zosyn, vancomycin, and levofloxacin (he had been on two courses of antibiotics recently for cellulitis). Zosyn was then switched to Primaxin. He has been afebrile over the last week and cultures have been negative. Antibiotics were been discontinued after an 8 day course. (3) Septic shock Status: Resolved Assessment & Plan: He presented with an elevated lactate and hypotension. He did require a norepinephrine infusion, but is now maintaining his blood pressure independently. He also received stress dose hydrocortisone, which is now discontinued. (4) Acute renal failure Status: Resolved Assessment & Plan: Improved/resolved with IV fluids. (5) DM2 (diabetes mellitus, type 2) Assessment & Plan: He has been on chronic treatment with metformin, which has been restarted. We does have sliding scale level #2, and continues to require intermittent coverage. (6) Elevated liver enzymes Status: Acute Assessment & Plan: Etiology unclear, but likely related to acute illness/hepatosteatosis. Exam Sepsis Risk: No Definite Risk HUGO MIRZA DO Mar 11, 2018 10:48
[2018-03-11 11:36] VITALS: BP 129/75
[2018-03-11 20:07] VITALS: BP 134/75
[2018-03-11] MEDS: INSULIN HUM LISPRO 100 UN/ML 3 ML VIAL SUBQ PRN (20:16)
[2018-03-12] MEDS: TIOTROPIUM BROM INH 18 MCG/CAP INH SCH (05:46)
[2018-03-12 07:15] VITALS: BP 138/80
[2018-03-12] MEDS: TAMSULOSIN HCL 0.4 MG CAP PO SCH (08:30)
[2018-03-12] MEDS: POTASSIUM CHL 20 MEQ TABCR PO SCH ×2 (08:30→17:44)
[2018-03-12] MEDS: ENOXAPARIN 40 MG/0.4ML SYR SC SCH (08:31)
[2018-03-12] MEDS: FUROSEMIDE 40 MG TAB PO SCH (08:31)
[2018-03-12] MEDS: metFORMIN HCL 500 MG TAB PO SCH ×2 (08:31→17:44)
[2018-03-12] MEDS: DOCUSATE SODIUM 100 MG CAP PO SCH ×2 (08:31→20:48)
[2018-03-12] MEDS: POLYETHYLENE GLYCOL 17 GM PKT PO SCH (08:31)
[2018-03-12] MEDS: guaiFENesin 600 MG TABCR PO SCH ×2 (08:31→20:48)
[2018-03-12] MEDS: PANTOPRAZOLE SOD 40 MG TABEC PO SCH (08:31)
[2018-03-12 12:28] VITALS: BP 129/71
--- NOTE | 2018-03-12 13:02 | Hospitalist Progress Note ---
Subjective Progress Notes Subjective The patient is without complaints. He reports sleeping fairly well and has an appetite this morning. Physical Exam Vital Signs Date Time Temp Pulse Resp B/P (MAP) Pulse Ox O2 Delivery O2 Flow Rate FiO2 03/12/18 12:28 98.9 80 16 129/71 (90) 98 4.0 03/12/18 11:08 Room Air 03/12/18 05:46 40.0 Intake and Output 03/12/18 07:00 Intake Total 120 ml Output Total 1175 ml Balance -1055 ml Intake Oral 120 ml Output Urine Total 1175 ml # Voids 3 # Bowel Movements 2 General Appearance: Alert, Awake, No Acute Distress Extremities: Other (Skin is wrinkled on shins, but lower legs are chronically swollen.) Result Diagram: 03/11/1852503/11/18525 Monitor Interpretation: Normal Sinus Rhythm Assessment and Plan Problems: (1) Weakness Status: Acute Assessment & Plan: Secondary prolonged ventilator support and illness and exacerbated by obesity. He is requiring maximum assistance with 3 people for transfers. He is likely going to go to the [facility] for continued therapy. (2) Acute respiratory failure Assessment & Plan: He was intubated in the emergency department on 03/01/2018. He was extubated 03/07/2018. He continues to get BiPAP at night. Suspect chronic hypercapnia secondary to obesity hypoventilation syndrome. His baseline O2 requirement is 4 liters. He has been on 6 liters, but just dropped him down to 4 liters this morning. (3) Bacterial pneumonia Status: Resolved Assessment & Plan: He had bibasilar infiltrates on CT scan and his WBC was increased (on prednisone). He was started on empiric treatment with IV Zosyn, vancomycin, and levofloxacin (he had been on two courses of antibiotics recently for cellulitis). Zosyn was then switched to Primaxin. He has been afebrile over the last week and cultures have been negative. Antibiotics were been discontinued after an 8 day course. (4) Septic shock Status: Resolved Assessment & Plan: He presented with an elevated lactate and hypotension. He did require a norepinephrine infusion, but is now maintaining his blood pressure independently. He also received stress dose hydrocortisone, which is now discontinued. (5) Acute renal failure Status: Resolved Assessment & Plan: Improved/resolved with IV fluids. (6) DM2 (diabetes mellitus, type 2) Assessment & Plan: He has been on chronic treatment with metformin, which has been restarted. We does have sliding scale level #2, and continues to require intermittent coverage. (7) Elevated liver enzymes Status: Acute Assessment & Plan: Etiology unclear, but likely related to acute illness/hepatosteatosis. CMP tomorrow. Exam Sepsis Risk: No Definite Risk ANGELO KWON MD Mar 12, 2018 13:02
[2018-03-12 19:21] VITALS: BP 131/71
[2018-03-13 02:28] VITALS: BP 126/76
[2018-03-13] MEDS: TIOTROPIUM BROM INH 18 MCG/CAP INH SCH (05:29)
[2018-03-13 05:48] LABS: PLATELET COUNT, AUTOMATED 198 K/uL (150-450)
[2018-03-13] MEDS: TAMSULOSIN HCL 0.4 MG CAP PO SCH (08:35)
[2018-03-13] MEDS: guaiFENesin 600 MG TABCR PO SCH ×2 (08:35→20:43)
[2018-03-13] MEDS: PANTOPRAZOLE SOD 40 MG TABEC PO SCH (08:35)
[2018-03-13] MEDS: metFORMIN HCL 500 MG TAB PO SCH ×2 (08:35→17:22)
[2018-03-13] MEDS: POTASSIUM CHL 20 MEQ TABCR PO SCH ×2 (08:35→17:22)
[2018-03-13] MEDS: FUROSEMIDE 40 MG TAB PO SCH (08:36)
[2018-03-13] MEDS: ENOXAPARIN 40 MG/0.4ML SYR SC SCH (08:36)
[2018-03-13] MEDS: POLYETHYLENE GLYCOL 17 GM PKT PO SCH (08:36)
[2018-03-13] MEDS: DOCUSATE SODIUM 100 MG CAP PO SCH ×2 (08:36→20:43)
--- NOTE | 2018-03-13 11:08 | Hospitalist Progress Note ---
Subjective Progress Notes Subjective He has no complaints this morning. He had no acute events overnight. Patient Complains of: Cardiovascular: No: Chest Pain Respiratory: No: Shortness of Breath Physical Exam Vital Signs Date Time Temp Pulse Resp B/P (MAP) Pulse Ox O2 Delivery O2 Flow Rate FiO2 03/13/18 06:14 93 High-Flow Nasal Cannula 4.0 03/13/18 05:31 40.0 03/13/18 02:28 98.6 85 20 126/76 (93) Intake and Output 03/13/18 01:00 Intake Total 250 ml Output Total 1375 ml Balance -1125 ml Intake Oral 250 ml Output Urine Total 1375 ml General Appearance: Alert, Awake, No Acute Distress, Afebrile Neuro: No Gross deficits Cardiovascular: Regular Rate and Rhythm Respiratory: No Respiratory Distress, Clear to Auscultation GI: Soft and Non-Tender Psych: Alert & Oriented X3, Appropriate Mood & Affect Result Diagram: 03/13/1824 03/13/18523 Monitor Interpretation: Normal Sinus Rhythm Assessment and Plan Problems: (1) Weakness Status: Acute Assessment & Plan: Secondary prolonged ventilator support and illness and exacerbated by obesity. He is requiring maximum assistance with 3 people for transfers. He is likely going to go to the [facility] for continued therapy. (2) Acute respiratory failure Assessment & Plan: He was intubated in the emergency department on 03/01/2018. He was extubated 03/07/2018. He continues to get BiPAP at night. Suspect chronic hypercapnia secondary to obesity hypoventilation syndrome. His baseline O2 requirement is 4 liters. He is at baseline oxygen use now. (3) Bacterial pneumonia Status: Resolved Assessment & Plan: He had bibasilar infiltrates on CT scan and his WBC was increased (on prednisone). He was started on empiric treatment with IV Zosyn, vancomycin, and levofloxacin (he had been on two courses of antibiotics recently for cellulitis). Zosyn was then switched to Primaxin. He has been afebrile over the last week and cultures have been negative. Antibiotics were been discontinued after an 8 day course. (4) Septic shock Status: Resolved Assessment & Plan: He presented with an elevated lactate and hypotension. He did require a norepinephrine infusion, but is now maintaining his blood pressure independently. He also received stress dose hydrocortisone, which is now discontinued. (5) Acute renal failure Status: Resolved Assessment & Plan: Improved/resolved with IV fluids. (6) DM2 (diabetes mellitus, type 2) Assessment & Plan: He has been on chronic treatment with metformin, which has been restarted. He does have sliding scale level #2, and continues to require intermittent coverage. (7) Elevated liver enzymes Status: Acute Assessment & Plan: Etiology unclear, but likely related to acute illness/hepatosteatosis. Improving. Exam Sepsis Risk: No Definite Risk JOSEPH OLIVO [employer] EQUIPMENT REPAIRER Mar 13, 2018 11:07
[2018-03-13] MEDS: INSULIN HUM LISPRO 100 UN/ML 3 ML VIAL SUBQ PRN (12:27)
--- NOTE | 2018-03-13 20:18 | RADIOLOGY IMAGING REPORT ---
[place] [facility] [place] Neo Diaz : 1970 MR: [id number] V: [id number] EXAM DATE: ORDERING PHYSICIAN: JOSEPH OLIVO TECHNOLOGIST: Location: [facility] Patient: Neo Diaz : 1970 Visit/Account:[id number] Date of Sevice: 03/13/2018 FOOT 3 VIEW RIGHT COMPARISONS: February 17, 2018 ADDITIONAL PERTINENT HISTORY: Foot pain when standing FINDINGS: Osseous structures: Negative. Joint spaces: Negative. Surrounding soft tissues: Negative. IMPRESSION: Normal views of the right foot. Report Dictated By: Sedrick Oakley MD at 03/13/2018 8:14 PM Report E-Signed By: Sedrick Oakley MD at 03/13/2018 8:15 PM WSN:[id number]
[2018-03-13 20:30] VITALS: BP 138/80
[2018-03-13] MEDS ORDERED: ACETAMINOPHEN 500 MG TAB PO PRN (20:55)
[2018-03-13] MEDS ORDERED: IBUPROFEN 200 MG TAB PO PRN (20:55)
[2018-03-14 02:33] VITALS: BP 123/63
[2018-03-14 05:50] LABS: PLATELET COUNT, AUTOMATED 204 K/uL (150-450)
[2018-03-14] MEDS: TIOTROPIUM BROM INH 18 MCG/CAP INH SCH (06:00)
[2018-03-14 07:33] VITALS: BP 124/71
[2018-03-14] MEDS: POLYETHYLENE GLYCOL 17 GM PKT PO SCH (09:06)
[2018-03-14] MEDS: metFORMIN HCL 500 MG TAB PO SCH ×2 (09:07→17:44)
[2018-03-14] MEDS: PANTOPRAZOLE SOD 40 MG TABEC PO SCH (09:07)
[2018-03-14] MEDS: ENOXAPARIN 40 MG/0.4ML SYR SC SCH (09:07)
[2018-03-14] MEDS: POTASSIUM CHL 20 MEQ TABCR PO SCH ×2 (09:07→17:44)
[2018-03-14] MEDS: DOCUSATE SODIUM 100 MG CAP PO SCH ×2 (09:07→21:00)
[2018-03-14] MEDS: FUROSEMIDE 40 MG TAB PO SCH (09:07)
[2018-03-14] MEDS: TAMSULOSIN HCL 0.4 MG CAP PO SCH (09:07)
[2018-03-14] MEDS: guaiFENesin 600 MG TABCR PO SCH ×2 (09:08→21:18)
--- NOTE | 2018-03-14 10:55 | Hospitalist Progress Note ---
Subjective Progress Notes Subjective He has complaints of right foot pain. He had no acute events overnight. Patient Complains of: Cardiovascular: No: Chest Pain Respiratory: No: Shortness of Breath Physical Exam Vital Signs Date Time Temp Pulse Resp B/P (MAP) Pulse Ox O2 Delivery O2 Flow Rate FiO2 03/14/18 07:37 91 High-Flow Nasal Cannula 3.0 03/14/18 07:33 97.8 72 18 124/71 (88) 03/14/18 00:00 35.0 Intake and Output 03/14/18 00:59 Intake Total 602 ml Output Total 2225 ml Balance -1623 ml Intake Oral 602 ml Output Urine Total 2225 ml General Appearance: Alert, Awake, No Acute Distress, Afebrile Neuro: No Gross deficits Cardiovascular: Regular Rate and Rhythm Respiratory: No Respiratory Distress, Clear to Auscultation GI: Soft and Non-Tender Extremities: Warm, Perfused, Edema (1+pitting edema) Integumentary: Scaly / Dry Skin (bilateral feet) Psych: Alert & Oriented X3, Appropriate Mood & Affect Result Diagram: 03/14/18 0525 03/14/18 0525 Monitor Interpretation: Normal Sinus Rhythm Assessment and Plan Problems: (1) Weakness Status: Acute Assessment & Plan: Secondary prolonged ventilator support and illness and exacerbated by obesity. He is improving with therapy with minimal assistance with gait belt. He is likely going to need rehab prior to going home. (2) Acute respiratory failure Assessment & Plan: He was intubated in the emergency department on 03/01/2018. He was extubated 03/07/2018. He continues to get BiPAP at night. He was able to tolerate four hours of BiPAP last night. CO2 levels improving with increased use of BiPAP. Suspect chronic hypercapnia secondary to obesity hypoventilation syndrome. His baseline O2 requirement is 4 liters. He is at baseline oxygen use now. (3) Bacterial pneumonia Status: Resolved Assessment & Plan: He had bibasilar infiltrates on CT scan and his WBC was increased (on prednisone). He was started on empiric treatment with IV Zosyn, vancomycin, and levofloxacin (he had been on two courses of antibiotics recently for cellulitis). Zosyn was then switched to Primaxin. He has been afebrile over the last week and cultures have been negative. Antibiotics were been discontinued after an 8 day course. (4) Septic shock Status: Resolved Assessment & Plan: He presented with an elevated lactate and hypotension. He did require a norepinephrine infusion, but is now maintaining his blood pressure independently. He also received stress dose hydrocortisone, which is now discontinued. (5) Acute renal failure Status: Resolved Assessment & Plan: Improved/resolved with IV fluids. (6) DM2 (diabetes mellitus, type 2) Assessment & Plan: He has been on chronic treatment with metformin, which has been restarted. He does have sliding scale level #2, and continues to require intermittent coverage. (7) Elevated liver enzymes Status: Acute Assessment & Plan: Etiology unclear, but likely related to acute illness/hepatosteatosis. Improving. Exam Sepsis Risk: No Definite Risk JOSEPH OLIVO F[employer]ATION RELATIONS DIRECTOR Mar 14, 2018 10:55
[2018-03-14] MEDS: buPROPion SR 150 MG TABCR PO SCH (17:44)
[2018-03-14 20:04] VITALS: BP 137/70
[2018-03-15 02:34] VITALS: BP 126/79
[2018-03-15] MEDS: TIOTROPIUM BROM INH 18 MCG/CAP INH SCH (06:03)
[2018-03-15 06:53] VITALS: BP 128/73
[2018-03-15 07:19] LABS: PLATELET COUNT, AUTOMATED 219 K/uL (150-450)
[2018-03-15] MEDS: DOCUSATE SODIUM 100 MG CAP PO SCH (08:49)
[2018-03-15] MEDS: buPROPion SR 150 MG TABCR PO SCH (08:50)
[2018-03-15] MEDS: POTASSIUM CHL 20 MEQ TABCR PO SCH (08:50)
[2018-03-15] MEDS: guaiFENesin 600 MG TABCR PO SCH (08:50)
[2018-03-15] MEDS: metFORMIN HCL 500 MG TAB PO SCH (08:50)
[2018-03-15] MEDS: POLYETHYLENE GLYCOL 17 GM PKT PO SCH (08:50)
[2018-03-15] MEDS: PANTOPRAZOLE SOD 40 MG TABEC PO SCH (08:50)
[2018-03-15] MEDS: FUROSEMIDE 40 MG TAB PO SCH (08:50)
[2018-03-15] MEDS: TAMSULOSIN HCL 0.4 MG CAP PO SCH (08:50)
[2018-03-15] MEDS: ENOXAPARIN 40 MG/0.4ML SYR SC SCH (08:51)
--- NOTE | 2018-03-15 10:39 | Hospitalist Depart ---
Discharge Summary Reason for Hosp/Final Diag: (1) Weakness Status: Acute Hospital Course & Plan: Secondary prolonged ventilator support and illness and exacerbated by obesity. He is improving with therapy with minimal assistance with gait belt. He is going to be transferred to [facility] unit for further rehabilitation. (2) Acute respiratory failure Status: Acute Hospital Course & Plan: He was intubated in the emergency department on 03/01/2018. He was extubated 03/07/2018. He continues to get BiPAP at night. He was able to tolerate four hours of BiPAP last night. CO2 levels improving with increased use of BiPAP. Suspect chronic hypercapnia secondary to obesity hypoventilation syndrome. His baseline O2 requirement is 4 liters. He is at baseline oxygen use now. Due to the severity of patient's disease, he will require Trilogy in gama of BiPAP to prevent further ER visits and possible re- hospitalization/ intubation. (3) Bacterial pneumonia Status: Resolved Hospital Course & Plan: He had bibasilar infiltrates on CT scan and his WBC was increased (on prednisone). He was started on empiric treatment with IV Zosyn, vancomycin, and levofloxacin (he had been on two courses of antibiotics recently for cellulitis). Zosyn was then switched to Primaxin. He has been afebrile over the last week and cultures have been negative. Antibiotics were discontinued after an 8 day course. (4) Septic shock Status: Resolved Hospital Course & Plan: He presented with an elevated lactate and hypotension. He did require a norepinephrine infusion, but is now maintaining his blood pressure independently. He also received stress dose hydrocortisone, which is now discontinued. (5) Acute renal failure Status: Resolved Hospital Course & Plan: Improved/resolved with IV fluids. (6) DM2 (diabetes mellitus, type 2) Hospital Course & Plan: He has been on chronic treatment with metformin, which has been restarted. He does have sliding scale level #2, and continues to require intermittent coverage. (7) Elevated liver enzymes Status: Acute Hospital Course & Plan: Etiology unclear, but likely related to acute illness/hepatosteatosis. Improving. (8) COPD (chronic obstructive pulmonary disease) Status: Chronic Hospital Course & Plan: He is on chronic treatment with Albuterol inhaler and nebulizers. He will require Trilogy in gama of BiPAP to prevent further hospitalizations, due to the severity of his respiratory status. Departure Latest Vital Signs Vital Signs 03/15/18 03/15/18 06:03 06:53 Temp 98.2 Pulse 89 Resp 18 B/P (MAP) 128/73 (91) Pulse Ox 93 O2 Delivery Nasal Cannula O2 Flow Rate 2.5 FiO2 40.0 Weight (Pounds): 409 Weight (Ounces): 8.0 Result Diagram: 03/15/18 0713 03/15/18 0541 Condition: Improved Discharge: [facility] Discharge Instructions Home Meds Reported Medications Oxygen (OXYGEN) Inha, 4 L INH, L 03/08/18 Potassium Chloride (POTASSIUM CHLORIDE) 10 Meq Tab.er.prt, 10 MEQ PO QDAY 03/08/18 Furosemide (FUROSEMIDE) 40 Mg Tablet, 1 TAB PO QDAY, TAB 03/08/18 Metformin Hcl (METFORMIN HCL) 500 Mg Tablet, 1 TAB PO BID, TAB 03/06/18 Tiotropium [place] (SPIRIVA) 18 Mcg/Cap Inh, 18 MCG INH QDAY, INH 02/17/18 Albuterol Sulfate 0.083% (ALBUTEROL SULFATE 0.083%) 2.5 Mg/3 Ml Vial.neb, 2.5 MG INH PRN, INH 02/17/18 Albuterol Sulfate 90 Mcg/Act (PROAIR HFA 90 MCG/ACT) 8.5 Gm Hfa.aer.ad, 2 PUFF IH Q4-6H PRN for SHORTNESS OF BREATH, INHALER 02/17/18 Discontinued Reported Medications Potassium Gluconate (POTASSIUM) 99 Mg Tablet, PO QDAY 02/27/18 Furosemide (LASIX) 20 Mg Tablet, 2 TAB PO QDAY, TAB 02/17/18 Diet: Regular Activity: As Tolerated, With Walker Venous Thromboembolism Antithrombotics Is Pt On Any Antithrombotics?: No Problem Qualifiers (1) Acute respiratory failure: Respiratory failure complication: hypercapnia Qualified Codes: J96.02 - Acute respiratory failure with hypercapnia JOSEPH OLIVO [facility] Mar 15, 2018 10:39
[2018-03-15 11:30] VITALS: BP 130/77
[2018-03-15 11:38] VITALS: BP 128/70
== END 2018-03-15 12:05 | DRG 870 ==
LOC: ER 21:12 → ICU 22:38 → MED 03-09 11:30
PROVIDERS: ADMIT Family Medicine; ATTEND Family Medicine
PROC: 5A1955Z Respiratory Ventilation, Greater than 96 Consecutive Hours (ICD-10-PCS; principal; 2018-03-01)
PROC: 0BH17EZ Insertion of Endotracheal Airway into Trachea, Via Natural or Artificial Opening (ICD-10-PCS; 2018-03-01)
PROC: 02HV33Z Insertion of Infusion Device into Superior Vena Cava, Percutaneous Approach (ICD-10-PCS; 2018-03-01)
DX: A41.9 Sepsis, unspecified organism (principal); J15.9 Unspecified bacterial pneumonia; R65.21 Severe sepsis with septic shock; J96.22 Acute and chronic respiratory failure with hypercapnia; N17.9 Acute kidney failure, unspecified; J44.0 Chronic obstructive pulmonary disease with (acute) lower respiratory infection; J44.1 Chronic obstructive pulmonary disease with (acute) exacerbation; E87.2 Acidosis; Z68.43 Body mass index [BMI] 50.0-59.9, adult; E66.2 Morbid (severe) obesity with alveolar hypoventilation; E11.9 Type 2 diabetes mellitus without complications; I87.8 Other specified disorders of veins; R53.1 Weakness; Z79.84 Long term (current) use of oral hypoglycemic drugs; Z90.49 Acquired absence of other specified parts of digestive tract
CPT/HCPCS: 36415; 36416; 36561; 36600; 71045; 71250; 71275; 74176; 80202; 81001; 82040; 82247; 82271; 82310; 82374; 82435; 82550; 82565; 82803; 82947; 82948; 83605; 83735; 83880; 83986; 84075; 84132; 84155; 84295; 84450; 84460; 84478; 84484; 84520; 85025; 85379; 85520; 85730; 86140; 87040; 87088; 93005; 93970; 94002; 94003; 94640; 94660; 94770; 96365; 96367; 96375; 97163; 97166; 99285; A4338; C1758; C8929; C9113; J0131; J0743; J1644; J1650; J1720; J1815; J1940; J1956; J2543; J2550; J2704; J2930; J3370; J3480; J3535; J7030; J7050; Q9957; Q9967

== ENCOUNTER → 2018-03-01 | Outpatient (CLI) | payer MEDICAID ==
[~2018-03-01] MED LIST changes: +FURO-47 PO; +METF-411 PO; +ONDA4TAB PO; +OXYGENHOME INH; +POTA-53 PO; +POTA99TA6 PO; +PRED20TA6 PO
[2018-03-02 12:26] VITALS: BMI 55.8
== END ==
LOC: AMB 20:34
PROVIDERS: ATTEND Nurse Practitioner
DX: R06.03 Acute respiratory distress (principal); R50.9 Fever, unspecified
CPT/HCPCS: A0425; A0427

== ENCOUNTER 2018-03-10 07:16 | Outpatient (RCR) | payer MEDICAID ==
[2018-03-02 12:26] VITALS: BMI 55.8
[~2018-03-10 07:16] MED LIST changes: +FURO-47 PO; -METF-421 PO; +METF-450 PO; +METF-452 PO; +OXYGENHOME INH; +POTA-53 PO
[2018-03-22] MEDS ORDERED: DOCU-202 PO (14:12)
[2018-03-22] MEDS ORDERED: BUPR-136 PO (14:12)
[2018-03-22] MEDS ORDERED: GUAI600T57 PO (14:12)
[2018-03-22] MEDS ORDERED: PANT40TA65 PO (14:12)
[2018-03-22] MEDS ORDERED: TAMS0.4C70 PO (14:12)
[2018-03-22] MEDS ORDERED: POTA20PA25 PO (14:14)
--- NOTE | 2018-03-23 17:15 | Transitional Care Management ---
Assessment Visit Type: Telephone Visit Spoke with: [facility] Comment: 03/23 Denies chest pain. States edema is the same; still taking lasix Respiratory Comment: 03/23 Refused Bipap in hospital. States he is wearing 2 L as instructed though 4 L was his base before admission. Review s/s to report early to MD GI Comment: 03/23 states appetite "not so good". Taking BS bid, was 145 today. Constipation?: No (using new colace) Comment: 03/23 has new flomax, denies problems Musculoskeletal, Excercise Com: 03/23 has walker, walked further today Feeling of Well Being Comment: 03/23 pretty good. Sleeps in recliner at home. States mood is better with new welbutrin Scheduled Follow-Up with Sonu: Yes Community Resources/HHC: 03/23 states he has f/u with Gosia Crowe next week. I called [facility] who states they cannot see him without a MD to follow. Called Niraj and got appt for 03/28 at 2:30. Pt agree to see this , states he can get transport and can get to appt Questions for Future PCP Visit: 03/23 will need RX renewed as he only has 30 days worth TCM Discharge Criteria Medication Knowledge: 03/23 reviewed new meds. asked about remeron that was dc when welbutrin started. Asked how he would remember to take meds bid routinely (as he stated previously that he frequently forgot). States he has [facility] Disease Management/Concern/Wha: 03/23 s/s COPD, pneumonia Transitional Care Comment: 03/09 He consents to the program and home visit. He has been in the ICU, intubated until 03/07, moved to the floor today. He is a little slow to answer questions, but knows his medications. We reviewed his meds, and COPD. 03/23 Has new rx. Will see new MD then be able to start PT and HHC. Have his new phone number but still had to contact him via [employer] JAYLENE Somers Mar 23, 2018 17:15
--- NOTE | 2018-03-24 13:49 | Transitional Care Management ---
Assessment Visit Type: Home Visit (03/24 visited with Ruddy) Cardiac Comment: 03/23 Denies chest pain. States edema is the same; still taking lasix 03/24 edema unchanged- still taking lasix as ordered. Enc him to elevate on a stool as he sits in a chair 24 hr aday wit feet down. Respiratory Comment: 03/23 Refused Bipap in hospital. States he is wearing 2 L as instructed though 4 L was his base before admission. Review s/s to report early to MD 03/24 Using O2/2l states he gets a little SOB with activity and he feels like he is getting a cold as he does have a cough. Enc him to use his inhalers as directed and do some CDB exercises. There are several small childern in home with runny noses and coughing. Enc him to call Dr sooner if cough gets worse. GI Comment: 03/23 states appetite "not so good". Taking BS bid, was 145 today. 03/24 BS remain stable. States "still no appitite" Enc him to tr some supplement ie Glycerina for protien and other nutrients, Weight Comment: 03/24 Unable to weigh at [facility] as no scale or one that will wt him. He weights close to 400 #. I suggested he call [employer] or hospital and see if they could wt him every couple of days. Cousin halley lives in the house stated that they were looking for one in home he can buy. Constipation?: No (using new colace 03/24 states having loose green stools. He is taking colace BID, had already taken this AM on-had him hold HS and 03/25 AM one and see if that will help.) Comment: 03/23 has new flomax, denies problems 03/24 doesn't feel like he is foiding according to what he takes in. Enc him to speak to Dr regarding this. This is another reason I would like him to wt ever couple of daus. Musculoskeletal, Excercise Com: 03/23 has walker, walked further today 03/24 He walked back from [place] with walker when I arrived and looked like he was doing well. His O2 Sats went down to 87% but quickly returned to 91-92% when he sat down Feeling of Well Being Comment: 03/23 pretty good. Sleeps in recliner at home. States mood is better with new welbutrin Socialization Comment: 03/24 Resides in a three bedroom 1 bath with 8 other people. A couple other persons sleep in the living room also. Cris sleeps in a chair (not a recliner)- suggested he get a stool to elevate feet. Pain/Management: WNL Except Pain/Management Comment: 03/24 C/o back pain- "Hurts to walk. Has been only taking Tylenol. I helped him start a list of questions to Dr Healy. Scheduled Follow-Up with Sonu: Yes Community Resources/HHC: 03/23 states he has f/u with Gosia Crowe next week. I called [facility] who states they cannot see him without a MD to follow. Called Niraj and got appt for 03/28 at 2:30. Pt agree to see this , states he can get transport and can get to appt Questions for Future PCP Visit: 03/23 will need RX renewed as he only has 30 days worth TCM Discharge Criteria Medication Knowledge: 03/23 reviewed new meds. asked about remeron that was dc when welbutrin started. Asked how he would remember to take meds bid routinely (as he stated previously that he frequently forgot). States he has medplanner 03/24 went over meds in med tool and production planner -niece has set it up for him in two planners- i for days and 1 for evens and she reminds him. Disease Management/Concern/Wha: 03/23 s/s COPD, pneumonia Transitional Care Comment: 03/09 He consents to the program and home visit. He has been in the ICU, intubated until 03/07, moved to the floor today. He is a little slow to answer questions, but knows his medications. We reviewed his meds, and COPD. 03/23 Has new rx. Will see new MD then be able to start PT and HHC. Have his new phone number but still had to contact him via [employer] phone 03/24 Visited with Ruddy today in [facility] apartment with many people different ages residing in. Ruddy sleeps in a chair 07/02 He did return from the per walker and O2 while I was there but floor and coushes very cluttered. He stated " sister was trying to do some cleaning but she ambulates with a walker also." He states he knows he has a Dr appt on (/!! and he has a ride" I helped him right out some questions for the Dr and enc him to write down more as he thinks of it. he appeared to be ding "OK' Copies to: CARLTON HEALY MD ; JUSTIN GU Mar 24, 2018 13:49
[2018-03-28] MEDS ORDERED: COLC0.6T2 PO (16:49)
[2018-03-28] MEDS ORDERED: ALLO-119 PO (16:49)
[2018-03-29] MEDS ORDERED: METF-450 PO (08:04)
[2018-03-30] MEDS ORDERED: PROM5SYR PO (16:19)
--- NOTE | 2018-04-01 12:44 | Transitional Care Management ---
Assessment Cardiac Comment: 03/23 Denies chest pain. States edema is the same; still taking lasix 03/24 edema unchanged- still taking lasix as ordered. Enc him to elevate on a stool as he sits in a chair 24 hr aday wit feet down. Respiratory Comment: 03/23 Refused Bipap in hospital. States he is wearing 2 L as instructed though 4 L was his base before admission. Review s/s to report early to MD 03/24 Using O2/2l states he gets a little SOB with activity and he feels like he is getting a cold as he does have a cough. Enc him to use his inhalers as directed and do some CDB exercises. There are several small childern in home with runny noses and coughing. Enc him to call Dr sooner if cough gets worse. GI Comment: 03/23 states appetite "not so good". Taking BS bid, was 145 today. 03/24 BS remain stable. States "still no appitite" Enc him to tr some supplement ie Glycerina for protien and other nutrients, Weight Comment: 03/24 Unable to weigh at [facility] as no scale or one that will wt him. He weights close to 400 #. I suggested he call [employer] or hospital and see if they could wt him every couple of days. Cousin halley lives in the house stated that they were looking for one in home he can buy. Constipation?: No (using new colace 03/24 states having loose green stools. He is taking colace BID, had already taken this AM on-had him hold HS and 03/25 AM one and see if that will help.) Comment: 03/23 has new flomax, denies problems 03/24 doesn't feel like he is foiding according to what he takes in. Enc him to speak to Dr regarding this. This is another reason I would like him to wt ever couple of daus. Musculoskeletal, Excercise Com: 03/23 has walker, walked further today 03/24 He walked back from [place] with walker when I arrived and looked like he was doing well. His O2 Sats went down to 87% but quickly returned to 91-92% when he sat down Feeling of Well Being Comment: 03/23 pretty good. Sleeps in recliner at home. States mood is better with new welbutrin Socialization Comment: 03/24 Resides in a three bedroom 1 bath with 8 other people. A couple other persons sleep in the living room also. Cris sleeps in a chair (not a recliner)- suggested he get a stool to elevate feet. Pain/Management: WNL Except Pain/Management Comment: 03/24 C/o back pain- "Hurts to walk. Has been only taking Tylenol. I helped him start a list of questions to Dr Healy. Scheduled Follow-Up with Provi: Yes Community Resources/HHC: 03/23 states he has f/u with Gosia Crowe next week. I called [facility] who states they cannot see him without a MD to follow. Called [facility]ir[facility] and got appt for 03/28 at 2:30. Pt agree to see this DrNena, states he can get transport and can get to appt Questions for Future PCP Visit: 03/23 will need RX renewed as he only has 30 days worth TCM Discharge Criteria Medication Knowledge: 03/23 reviewed new meds. asked about remeron that was dc when welbutrin started. Asked how he would remember to take meds bid routinely (as he stated previously that he frequently forgot). States he has medplanner 03/24 went over meds in med facilities planner -graham has set it up for him in two planners- i for days and 1 for evens and she reminds him. Disease Management/Concern/Wha: 03/23 s/s COPD, pneumonia Transitional Care Comment: 03/09 He consents to the program and home visit. He has been in the ICU, intubated until 03/07, moved to the floor today. He is a little slow to answer questions, but knows his medications. We reviewed his meds, and COPD. 03/23 Has new rx. Will see new MD then be able to start PT and HHC. Have his new phone number but still had to contact him via [employer] phone 03/24 Visited with Ruddy today in [place] disorganied apartment with many people different ages residing in. Ruddy sleeps in a chair 07/02 He did return from the BR per walker and O2 while I was there but floor and coushes very cluttered. He stated " sister was trying to do some cleaning but she ambulates with a walker also." He states he knows he has a Dr appt on (/!! and he has a ride" I helped him right out some questions for the Dr and enc him to write down more as he thinks of it. he appeared to be ding "OK' 03/31 He was in the ER yesterday, unable to contact, message left. 04/01 Left message. TRACEE REARDON Apr 01, 2018 12:44
--- NOTE | 2018-04-03 10:54 | Transitional Care Management ---
Assessment Cardiac Comment: 03/23 Denies chest pain. States edema is the same; still taking lasix 03/24 edema unchanged- still taking lasix as ordered. Enc him to elevate on a stool as he sits in a chair 24 hr aday wit feet down. Respiratory Comment: 03/23 Refused Bipap in hospital. States he is wearing 2 L as instructed though 4 L was his base before admission. Review s/s to report early to MD 03/24 Using O2/2l states he gets a little SOB with activity and he feels like he is getting a cold as he does have a cough. Enc him to use his inhalers as directed and do some CDB exercises. There are several small childern in home with runny noses and coughing. Enc him to call Dr sooner if cough gets worse. GI Comment: 03/23 states appetite "not so good". Taking BS bid, was 145 today. 03/24 BS remain stable. States "still no appitite" Enc him to tr some supplement ie Glycerina for protien and other nutrients, Weight Comment: 03/24 Unable to weigh at [facility] as no scale or one that will wt him. He weights close to 400 #. I suggested he call [employer] or hospital and see if they could wt him every couple of days. Cousin halley lives in the house stated that they were looking for one in home he can buy. Constipation?: No (using new colace 03/24 states having loose green stools. He is taking colace BID, had already taken this AM on-had him hold HS and 03/25 AM one and see if that will help.) Comment: 03/23 has new flomax, denies problems 03/24 doesn't feel like he is foiding according to what he takes in. Enc him to speak to Dr regarding this. This is another reason I would like him to wt ever couple of daus. Musculoskeletal, Excercise Com: 03/23 has walker, walked further today 03/24 He walked back from BR with walker when I arrived and looked like he was doing well. His O2 Sats went down to 87% but quickly returned to 91-92% when he sat down Feeling of Well Being Comment: 03/23 pretty good. Sleeps in recliner at home. States mood is better with new welbutrin Socialization Comment: 03/24 Resides in a three bedroom 1 bath with 8 other people. A couple other persons sleep in the living room also. Cris sleeps in a chair (not a recliner)- suggested he get a stool to elevate feet. Pain/Management: WNL Except Pain/Management Comment: 03/24 C/o back pain- "Hurts to walk. Has been only taking Tylenol. I helped him start a list of questions to Dr Healy. Scheduled Follow-Up with Provi: Yes Community Resources/HHC: 03/23 states he has f/u with Gosia Crowe next week. I called [facility] who states they cannot see him without a MD to follow. Called Nir[facility] and got appt for 03/28 at 2:30. Pt agree to see this DrNena, states he can get transport and can get to appt Questions for Future PCP Visit: 03/23 will need RX renewed as he only has 30 days worth TCM Discharge Criteria Medication Knowledge: 03/23 reviewed new meds. asked about remeron that was dc when welbutrin started. Asked how he would remember to take meds bid routinely (as he stated previously that he frequently forgot). States he has medplanner 03/24 went over meds in med material planner -graham has set it up for him in two planners- i for days and 1 for evens and she reminds him. Disease Management/Concern/Wha: 03/23 s/s COPD, pneumonia Transitional Care Comment: 03/09 He consents to the program and home visit. He has been in the ICU, intubated until 03/07, moved to the floor today. He is a little slow to answer questions, but knows his medications. We reviewed his meds, and COPD. 03/23 Has new rx. Will see new MD then be able to start PT and HHC. Have his new phone number but still had to contact him via [employer] phone 03/24 Visited with Ruddy today in [place] disorganied apartment with many people different ages residing in. Ruddy sleeps in a chair 07/02 He did return from the BR per walker and O2 while I was there but floor and coushes very cluttered. He stated " sister was trying to do some cleaning but she ambulates with a walker also." He states he knows he has a Dr appt on (/!! and he has a ride" I helped him right out some questions for the Dr and enc him to write down more as he thinks of it. he appeared to be ding "OK' 03/31 He was in the ER yesterday, unable to contact, message left. 04/01 Left message. 04/03 Ruddy doesn't answer his phone but, his cousin Aliza answered her phone and said he was sleeping. Says he sleeps alot after hospital dc and with his cold. He gets up to go to the bathroom and takes his meds with their reminding. [facility] has not started his PT. I called Tyra at [facility] who states she was going to see him today so PT could start. I told her about his c/o edema and that he was advised to decrease NA and fluids, elevate feet with foot rest instead of being dependent / in his chair. I asked her to verify his lasix dose as he was dc with lasix bid but on his intake form he stated he took it once a day JAYLENE AGUILA Apr 03, 2018 10:54
--- NOTE | 2018-04-07 14:11 | Transitional Care Management ---
Assessment Visit Type: Telephone Visit Spoke with: Ruddy Cardiac Comment: 03/23 Denies chest pain. States edema is the same; still taking lasix 03/24 edema unchanged- still taking lasix as ordered. Enc him to elevate on a stool as he sits in a chair 24 hr aday wit feet down. 04/07 He says his legs are more swollen, takes lasix 40 mg /day. We discussed elevating his feet. Respiratory Comment: 03/23 Refused Bipap in hospital. States he is wearing 2 L as instructed though 4 L was his base before admission. Review s/s to report early to MD 03/24 Using O2/2l states he gets a little SOB with activity and he feels like he is getting a cold as he does have a cough. Enc him to use his inhalers as directed and do some CDB exercises. There are several small childern in home with runny noses and coughing. Enc him to call Dr sooner if cough gets worse. 04/07 His cold is persisting. GI Comment: 03/23 states appetite "not so good". Taking BS bid, was 145 today. 03/24 BS remain stable. States "still no appitite" Enc him to tr some supplement ie Glycerina for protien and other nutrients, Weight Comment: 03/24 Unable to weigh at [facility] as no scale or one that will wt him. He weights close to 400 #. I suggested he call [employer] or hospital and see if they could wt him every couple of days. Cousin halley lives in the house stated that they were looking for one in home he can buy. 04/07 No scale yet. Constipation?: No (using new colace 03/24 states having loose green stools. He is taking colace BID, had already taken this AM on-had him hold HS and 03/25 AM one and see if that will help.) Comment: 03/23 has new flomax, denies problems 03/24 doesn't feel like he is foiding according to what he takes in. Enc him to speak to Dr regarding this. This is another reason I would like him to wt ever couple of daus. Musculoskeletal, Excercise Com: 03/23 has walker, walked further today 03/24 He walked back from with walker when I arrived and looked like he was doing well. His O2 Sats went down to 87% but quickly returned to 91-92% when he sat down Feeling of Well Being Comment: 03/23 pretty good. Sleeps in recliner at home. States mood is better with new welbutrin Socialization Comment: 03/24 Resides in a three bedroom 1 bath with 8 other people. A couple other persons sleep in the living room also. Cris sleeps in a chair (not a recliner)- suggested he get a stool to elevate feet. Pain/Management: WNL Except Pain/Management Comment: 03/24 C/o back pain- "Hurts to walk. Has been only taking Tylenol. I helped him start a list of questions to Dr Healy. Scheduled Follow-Up with Peggyi: Yes Community Resources/HHC: 03/23 states he has f/u with Gosia Crowe next week. I called [facility] who states they cannot see him without a MD to follow. Called Niraj and got appt for 03/28 at 2:30. Pt agree to see this , states he can get transport and can get to appt Questions for Future PCP Visit: 03/23 will need RX renewed as he only has 30 days worth Following Discharge Instructio: Yes TCM Discharge Criteria Medication Knowledge: 03/23 reviewed new meds. asked about remeron that was dc when welbutrin started. Asked how he would remember to take meds bid routinely (as he stated previously that he frequently forgot). States he has medplanner 03/24 went over meds in med operations planner -niece has set it up for him in two planners- i for days and 1 for evens and she reminds him. Disease Management/Concern/Wha: 03/23 s/s COPD, pneumonia Transitional Care Comment: 03/09 He consents to the program and home visit. He has been in the ICU, intubated until 03/07, moved to the floor today. He is a little slow to answer questions, but knows his medications. We reviewed his meds, and COPD. 03/23 Has new rx. Will see new MD then be able to start PT and HHC. Have his new phone number but still had to contact him via [employer] phone 03/24 Visited with Ruddy today in [place] apartment with many people different ages residing in. Ruddy sleeps in a chair 07/02 He did return from the BR per walker and O2 while I was there but floor and coushes very cluttered. He stated " sister was trying to do some cleaning but she ambulates with a walker also." He states he knows he has a Dr appt on (/!! and he has a ride" I helped him right out some questions for the Dr and enc him to write down more as he thinks of it. he appeared to be ding "OK' 03/31 He was in the ER yesterday, unable to contact, message left. 04/01 Left message. 04/03 Ruddy doesn't answer his phone but, his cousin Aliza answered her phone and said he was sleeping. Says he sleeps alot after hospital dc and with his cold. He gets up to go to the bathroom and takes his meds with their reminding. [facility] has not started his PT. I called Tyra at [facility] who states she was going to see him today so PT could start. I told her about his c/o edema and that he was advised to decrease NA and fluids, elevate feet with foot rest instead of being dependent 07/02 in his chair. I asked her to verify his lasix dose as he was dc with lasix bid but on his intake form he stated he took it once a day 04/07 Increased edema, denies SOB. He says Dr Healy started him on some new meds, but he does not know the names or what they are for. Copies to: CARLTON HEALY MD ; TRACEE REARDON Apr 07, 2018 14:11
--- NOTE | 2018-04-07 14:12 | Transitional Care Management ---
Assessment Cardiac Comment: 03/23 Denies chest pain. States edema is the same; still taking lasix 03/24 edema unchanged- still taking lasix as ordered. Enc him to elevate on a stool as he sits in a chair 24 hr aday wit feet down. 04/07 He says his legs are more swollen, takes lasix 40 mg /day. We discussed elevating his feet. Respiratory Comment: 03/23 Refused Bipap in hospital. States he is wearing 2 L as instructed though 4 L was his base before admission. Review s/s to report early to MD 03/24 Using O2/2l states he gets a little SOB with activity and he feels like he is getting a cold as he does have a cough. Enc him to use his inhalers as directed and do some CDB exercises. There are several small childern in home with runny noses and coughing. Enc him to call Dr sooner if cough gets worse. 04/07 His cold is persisting. GI Comment: 03/23 states appetite "not so good". Taking BS bid, was 145 today. 03/24 BS remain stable. States "still no appitite" Enc him to tr some supplement ie Glycerina for protien and other nutrients, Weight Comment: 03/24 Unable to weigh at [facility] as no scale or one that will wt him. He weights close to 400 #. I suggested he call [employer] or hospital and see if they could wt him every couple of days. Cousin halley lives in the house stated that they were looking for one in home he can buy. 04/07 No scale yet. Constipation?: No (using new colace 03/24 states having loose green stools. He is taking colace BID, had already taken this AM on-had him hold HS and 03/25 AM one and see if that will help.) Comment: 03/23 has new flomax, denies problems 03/24 doesn't feel like he is foiding according to what he takes in. Enc him to speak to Dr regarding this. This is another reason I would like him to wt ever couple of daus. Musculoskeletal, Excercise Com: 03/23 has walker, walked further today 03/24 He walked back from BR with walker when I arrived and looked like he was doing well. His O2 Sats went down to 87% but quickly returned to 91-92% when he sat down 04/07 PT will see him to set up a treatment schedule on Tuesday Feeling of Well Being Comment: 03/23 pretty good. Sleeps in recliner at home. States mood is better with new welbutrin Socialization Comment: 03/24 Resides in a three bedroom 1 bath with 8 other people. A couple other persons sleep in the living room also. Cris sleeps in a chair (not a recliner)- suggested he get a stool to elevate feet. Pain/Management: WNL Except Pain/Management Comment: 03/24 C/o back pain- "Hurts to walk. Has been only taking Tylenol. I helped him start a list of questions to Dr Healy. Scheduled Follow-Up with Peggyi: Yes Community Resources/HHC: 03/23 states he has f/u with Gosia Crowe next week. I called [facility] who states they cannot see him without a MD to follow. Called Niraj and got appt for 03/28 at 2:30. Pt agree to see this , states he can get transport and can get to appt Questions for Future PCP Visit: 03/23 will need RX renewed as he only has 30 days worth Following Discharge Instructio: Yes TCM Discharge Criteria Medication Knowledge: 03/23 reviewed new meds. asked about remeron that was dc when welbutrin started. Asked how he would remember to take meds bid routinely (as he stated previously that he frequently forgot). States he has medplanner 03/24 went over meds in med order planner -niece has set it up for him in two planners- i for days and 1 for evens and she reminds him. Disease Management/Concern/Wha: 03/23 s/s COPD, pneumonia Transitional Care Comment: 03/09 He consents to the program and home visit. He has been in the ICU, intubated until 03/07, moved to the floor today. He is a little slow to answer questions, but knows his medications. We reviewed his meds, and COPD. 03/23 Has new rx. Will see new MD then be able to start PT and HHC. Have his new phone number but still had to contact him via [employer] phone 03/24 Visited with Ruddy today in [facility] apartment with many people different ages residing in. Ruddy sleeps in a chair 07/02 He did return from the BR per walker and O2 while I was there but floor and coushes very cluttered. He stated " sister was trying to do some cleaning but she ambulates with a walker also." He states he knows he has a Dr appt on (/!! and he has a ride" I helped him right out some questions for the Dr and enc him to write down more as he thinks of it. he appeared to be ding "OK' 03/31 He was in the ER yesterday, unable to contact, message left. 04/01 Left message. 04/03 Ruddy doesn't answer his phone but, his cousin Aliza answered her phone and said he was sleeping. Says he sleeps alot after hospital dc and with his cold. He gets up to go to the bathroom and takes his meds with their reminding. [facility] has not started his PT. I called Trya at [facility] who states she was going to see him today so PT could start. I told her about his c/o edema and that he was advised to decrease NA and fluids, elevate feet with foot rest instead of being dependent 07/02 in his chair. I asked her to verify his lasix dose as he was dc with lasix bid but on his intake form he stated he took it once a day 04/07 Increased edema, denies SOB. He says Dr Healy started him on some new meds, but he does not know the names or what they are for. TRACEE REARDON Apr 07, 2018 14:12
[2018-04-11] MEDS ORDERED: ARFO15VI IH (13:07)
[2018-04-11] MEDS ORDERED: BUDE0.5A6 IH (13:07)
[2018-04-11] MEDS ORDERED: FURO-47 PO (13:07)
[2018-04-11] MEDS ORDERED: METXR500 PO (13:17)
[2018-04-11] MEDS ORDERED: BENZ100C4 PO (13:17)
[2018-04-11] MEDS ORDERED: FLU60SYR36 IM (13:18)
--- NOTE | 2018-04-14 14:35 | Transitional Care Management ---
Assessment Cardiac Comment: 03/23 Denies chest pain. States edema is the same; still taking lasix 03/24 edema unchanged- still taking lasix as ordered. Enc him to elevate on a stool as he sits in a chair 24 hr aday wit feet down. 04/07 He says his legs are more swollen, takes lasix 40 mg /day. We discussed elevating his feet. Respiratory Comment: 03/23 Refused Bipap in hospital. States he is wearing 2 L as instructed though 4 L was his base before admission. Review s/s to report early to MD 03/24 Using O2/2l states he gets a little SOB with activity and he feels like he is getting a cold as he does have a cough. Enc him to use his inhalers as directed and do some CDB exercises. There are several small childern in home with runny noses and coughing. Enc him to call Dr sooner if cough gets worse. 04/07 His cold is persisting. GI Comment: 03/23 states appetite "not so good". Taking BS bid, was 145 today. 03/24 BS remain stable. States "still no appitite" Enc him to tr some supplement ie Glycerina for protien and other nutrients, Weight Comment: 03/24 Unable to weigh at [facility] as no scale or one that will wt him. He weights close to 400 #. I suggested he call [employer] or hospital and see if they could wt him every couple of days. Cousin halley lives in the house stated that they were looking for one in home he can buy. 04/07 No scale yet. Constipation?: No (using new colace 03/24 states having loose green stools. He is taking colace BID, had already taken this AM on-had him hold HS and 03/25 AM one and see if that will help.) Comment: 03/23 has new flomax, denies problems 03/24 doesn't feel like he is foiding according to what he takes in. Enc him to speak to Dr regarding this. This is another reason I would like him to wt ever couple of daus. Musculoskeletal, Excercise Com: 03/23 has walker, walked further today 03/24 He walked back from [place] with walker when I arrived and looked like he was doing well. His O2 Sats went down to 87% but quickly returned to 91-92% when he sat down 04/07 PT will see him to set up a treatment schedule on Tuesday Feeling of Well Being Comment: 03/23 pretty good. Sleeps in recliner at home. States mood is better with new welbutrin Socialization Comment: 03/24 Resides in a three bedroom 1 bath with 8 other people. A couple other persons sleep in the living room also. Cris sleeps in a chair (not a recliner)- suggested he get a stool to elevate feet. Pain/Management: WNL Except Pain/Management Comment: 03/24 C/o back pain- "Hurts to walk. Has been only taking Tylenol. I helped him start a list of questions to Dr Healy. Scheduled Follow-Up with Peggyi: Yes Community Resources/HHC: 03/23 states he has f/u with Gosia Crowe next week. I called [facility] who states they cannot see him without a MD to follow. Called Niraj and got appt for 03/28 at 2:30. Pt agree to see this , states he can get transport and can get to appt Questions for Future PCP Visit: 03/23 will need RX renewed as he only has 30 days worth Following Discharge Instructio: Yes TCM Discharge Criteria Medication Knowledge: 03/23 reviewed new meds. asked about remeron that was dc when welbutrin started. Asked how he would remember to take meds bid routinely (as he stated previously that he frequently forgot). States he has medplanner 03/24 went over meds in med airport planner -niece has set it up for him in two planners- i for days and 1 for evens and she reminds him. Disease Management/Concern/Wha: 03/23 s/s COPD, pneumonia Transitional Care Comment: 03/09 He consents to the program and home visit. He has been in the ICU, intubated until 03/07, moved to the floor today. He is a little slow to answer questions, but knows his medications. We reviewed his meds, and COPD. 03/23 Has new rx. Will see new MD then be able to start PT and HHC. Have his new phone number but still had to contact him via [employer] phone 03/24 Visited with Ruddy today in [facility] apartment with many people different ages residing in. Ruddy sleeps in a chair 07/02 He did return from the BR per walker and O2 while I was there but floor and coushes very cluttered. He stated " sister was trying to do some cleaning but she ambulates with a walker also." He states he knows he has a Dr appt on (/!! and he has a ride" I helped him right out some questions for the Dr and enc him to write down more as he thinks of it. he appeared to be ding "OK' 03/31 He was in the ER yesterday, unable to contact, message left. 04/01 Left message. 04/03 Ruddy doesn't answer his phone but, his cousin Aliza answered her phone and said he was sleeping. Says he sleeps alot after hospital dc and with his cold. He gets up to go to the bathroom and takes his meds with their reminding. [facility] has not started his PT. I called Tyra at [facility] who states she was going to see him today so PT could start. I told her about his c/o edema and that he was advised to decrease NA and fluids, elevate feet with foot rest instead of being dependent 07/02 in his chair. I asked her to verify his lasix dose as he was dc with lasix bid but on his intake form he stated he took it once a day 04/07 Increased edema, denies SOB. He says Dr Healy started him on some new meds, but he does not know the names or what they are for. 04/14 No answer-left message. See by Dr reddy he was to [facility] Healy on 04/11 JUSTIN GU Apr 14, 2018 14:35
--- NOTE | 2018-04-17 14:46 | Transitional Care Management ---
Assessment Cardiac Comment: 03/23 Denies chest pain. States edema is the same; still taking lasix 03/24 edema unchanged- still taking lasix as ordered. Enc him to elevate on a stool as he sits in a chair 24 hr aday wit feet down. 04/07 He says his legs are more swollen, takes lasix 40 mg /day. We discussed elevating his feet. Respiratory Comment: 03/23 Refused Bipap in hospital. States he is wearing 2 L as instructed though 4 L was his base before admission. Review s/s to report early to MD 03/24 Using O2/2l states he gets a little SOB with activity and he feels like he is getting a cold as he does have a cough. Enc him to use his inhalers as directed and do some CDB exercises. There are several small childern in home with runny noses and coughing. Enc him to call Dr sooner if cough gets worse. 04/07 His cold is persisting. GI Comment: 03/23 states appetite "not so good". Taking BS bid, was 145 today. 03/24 BS remain stable. States "still no appitite" Enc him to tr some supplement ie Glycerina for protien and other nutrients, Weight Comment: 03/24 Unable to weigh at [facility] as no scale or one that will wt him. He weights close to 400 #. I suggested he call [employer] or hospital and see if they could wt him every couple of days. Cousin halley lives in the house stated that they were looking for one in home he can buy. 04/07 No scale yet. Constipation?: No (using new colace 03/24 states having loose green stools. He is taking colace BID, had already taken this AM on-had him hold HS and 03/25 AM one and see if that will help.) Comment: 03/23 has new flomax, denies problems 03/24 doesn't feel like he is foiding according to what he takes in. Enc him to speak to Dr regarding this. This is another reason I would like him to wt ever couple of daus. Musculoskeletal, Excercise Com: 03/23 has walker, walked further today 03/24 He walked back from [place] with walker when I arrived and looked like he was doing well. His O2 Sats went down to 87% but quickly returned to 91-92% when he sat down 04/07 PT will see him to set up a treatment schedule on Tuesday Feeling of Well Being Comment: 03/23 pretty good. Sleeps in recliner at home. States mood is better with new welbutrin Socialization Comment: 03/24 Resides in a three bedroom 1 bath with 8 other people. A couple other persons sleep in the living room also. Cris sleeps in a chair (not a recliner)- suggested he get a stool to elevate feet. Pain/Management: WNL Except Pain/Management Comment: 03/24 C/o back pain- "Hurts to walk. Has been only taking Tylenol. I helped him start a list of questions to Dr Healy. Scheduled Follow-Up with Peggyi: Yes Community Resources/HHC: 03/23 states he has f/u with Gosia Crowe next week. I called [facility] who states they cannot see him without a MD to follow. Called Niraj and got appt for 03/28 at 2:30. Pt agree to see this , states he can get transport and can get to appt Questions for Future PCP Visit: 03/23 will need RX renewed as he only has 30 days worth Following Discharge Instructio: Yes TCM Discharge Criteria Medication Knowledge: 03/23 reviewed new meds. asked about remeron that was dc when welbutrin started. Asked how he would remember to take meds bid routinely (as he stated previously that he frequently forgot). States he has medplanner 03/24 went over meds in med vacation planner -niece has set it up for him in two planners- i for days and 1 for evens and she reminds him. Disease Management/Concern/Wha: 03/23 s/s COPD, pneumonia Transitional Care Comment: 03/09 He consents to the program and home visit. He has been in the ICU, intubated until 03/07, moved to the floor today. He is a little slow to answer questions, but knows his medications. We reviewed his meds, and COPD. 03/23 Has new rx. Will see new MD then be able to start PT and HHC. Have his new phone number but still had to contact him via [employer] phone 03/24 Visited with Ruddy today in [facility] apartment with many people different ages residing in. Ruddy sleeps in a chair 07/02 He did return from the BR per walker and O2 while I was there but floor and coushes very cluttered. He stated " sister was trying to do some cleaning but she ambulates with a walker also." He states he knows he has a Dr appt on (/!! and he has a ride" I helped him right out some questions for the Dr and enc him to write down more as he thinks of it. he appeared to be ding "OK' 03/31 He was in the ER yesterday, unable to contact, message left. 04/01 Left message. 04/03 Ruddy doesn't answer his phone but, his cousin Aliza answered her phone and said he was sleeping. Says he sleeps alot after hospital dc and with his cold. He gets up to go to the bathroom and takes his meds with their reminding. [facility] has not started his PT. I called Tyra at [facility] who states she was going to see him today so PT could start. I told her about his c/o edema and that he was advised to decrease NA and fluids, elevate feet with foot rest instead of being dependent 07/02 in his chair. I asked her to verify his lasix dose as he was dc with lasix bid but on his intake form he stated he took it once a day 04/07 Increased edema, denies SOB. He says Dr Healy started him on some new meds, but he does not know the names or what they are for. 04/14 No answer-left message. See by Dr reddy he was to visit Dr Healy on 04/17 Called him 3 x today and Aliza x 2,JAYLENE Rankin Apr 17, 2018 14:46
--- NOTE | 2018-04-17 15:57 | Transitional Care Management ---
Assessment Visit Type: Telephone Visit Spoke with: Neo Cardiac Comment: 03/23 Denies chest pain. States edema is the same; still taking lasix 03/24 edema unchanged- still taking lasix as ordered. Enc him to elevate on a stool as he sits in a chair 24 hr aday wit feet down. 04/07 He says his legs are more swollen, takes lasix 40 mg /day. We discussed elevating his feet. 04/17 Doesnt have his recliner yet but says his feet are elevated on a stool with some pillows and that edema is "good". takes lasix bid Respiratory Comment: 03/23 Refused Bipap in hospital. States he is wearing 2 L as instructed though 4 L was his base before admission. Review s/s to report early to MD 03/24 Using O2/2l states he gets a little SOB with activity and he feels like he is getting a cold as he does have a cough. Enc him to use his inhalers as directed and do some CDB exercises. There are several small childern in home with runny noses and coughing. Enc him to call Dr sooner if cough gets worse. 04/07 His cold is persisting. 04/17 had cough today that ended PT sessioin early. States he has cough prn at noc and sputum is clear. Has 2 new nebs and states he has them and knows how to use them GI Comment: 03/23 states appetite "not so good". Taking BS bid, was 145 today. 03/24 BS remain stable. States "still no appitite" Enc him to tr some supplement ie Glycerina for protien and other nutrients, 04/17 still has nausea. has new metformin er to reduce D and nausea. only eats a few bites. states not taking colace due to D. Last BS was 119 Weight Comment: 03/24 Unable to weigh at [facility] as no scale or one that will wt him. He weights close to 400 #. I suggested he call [employer] or hospital and see if they could wt him every couple of days. Cousin halley lives in the house stated that they were looking for one in home he can buy. 04/07 No scale yet. 04/17 has documented wt loss of #50 over last mo. Constipation?: No (using new colace 03/24 states having loose green stools. He is taking colace BID, had already taken this AM on-had him hold HS and 03/25 AM one and see if that will help.) Comment: 03/23 has new flomax, denies problems 03/24 doesn't feel like he is foiding according to what he takes in. Enc him to speak to Dr regarding this. This is another reason I would like him to wt ever couple of daus. Musculoskeletal, Excercise Com: 03/23 has walker, walked further today 03/24 He walked back from BR with walker when I arrived and looked like he was doing well. His O2 Sats went down to 87% but quickly returned to 91-92% when he sat down 04/07 PT will see him to set up a treatment schedule on Tuesday Mobility Comment: 04/17 states PT is working with him and he is moving more Feeling of Well Being Comment: 03/23 pretty good. Sleeps in recliner at home. States mood is better with new welbutrin Socialization Comment: 03/24 Resides in a three bedroom 1 bath with 8 other people. A couple other persons sleep in the living room also. Cris sleeps in a chair (not a recliner)- suggested he get a stool to elevate feet. Pain/Management: WNL Except Pain/Management Comment: 03/24 C/o back pain- "Hurts to walk. Has been only taking Tylenol. I helped him start a list of questions to Dr Healy. Scheduled Follow-Up with Sonu: Yes Community Resources/HHC: 03/23 states he has f/u with Gosia Crowe next week. I called [facility] who states they cannot see him without a MD to follow. Called Niraj and got appt for 03/28 at 2:30. Pt agree to see this , states he can get transport and can get to appt 04/17 had f/u 04/11 and another at end of Apr. Primary Care Provider Visits: Yes Questions for Future PCP Visit: 03/23 will need RX renewed as he only has 30 days worth 04/17 nausea, poor appetite, persistent cough Following Discharge Instructio: Yes TCM Discharge Criteria Medication Knowledge: 03/23 reviewed new meds. asked about remeron that was dc when welbutrin started. Asked how he would remember to take meds bid routinely (as he stated previously that he frequently forgot). States he has medplanner 03/24 went over meds in med digital [employer] planner -niece has set it up for him in two planners- i for days and 1 for evens and she reminds him. 04/17 states lasix is bid, has new meds from MD Disease Management/Concern/Wha: 03/23 s/s COPD, pneumonia Transitional Care Comment: 03/09 He consents to the program and home visit. He has been in the ICU, intubated until 03/07, moved to the floor today. He is a little slow to answer questions, but knows his medications. We reviewed his meds, and COPD. 03/23 Has new rx. Will see new MD then be able to start PT and HHC. Have his new phone number but still had to contact him via [employer] phone 03/24 Visited with Ruddy today in [facility] apartment with many people different ages residing in. Ruddy sleeps in a chair 07/02 He did return from the BR per walker and O2 while I was there but floor and coushes very cluttered. He stated " sister was trying to do some cleaning but she ambulates with a walker also." He states he knows he has a Dr appt on (/!! and he has a ride" I helped him right out some questions for the Dr and enc him to write down more as he thinks of it. he appeared to be ding "OK' 03/31 He was in the ER yesterday, unable to contact, message left. 04/01 Left message. 04/03 Ruddy doesn't answer his phone but, his cousin Aliza answered her phone and said he was sleeping. Says he sleeps alot after hospital dc and with his cold. He gets up to go to the bathroom and takes his meds with their reminding. [facility] has not started his PT. I called Tyra at [facility] who states she was going to see him today so PT could start. I told her about his c/o edema and that he was advised to decrease NA and fluids, elevate feet with foot rest instead of being dependent 07/02 in his chair. I asked her to verify his lasix dose as he was dc with lasix bid but on his intake form he stated he took it once a day 04/07 Increased edema, denies SOB. He says Dr Healy started him on some new meds, but he does not know the names or what they are for. 04/14 No answer-left message. See by Dr reddy he was to visit Dr Healy on 04/17 Called him 3 x today and Aliza x 2,jovanny. States he lost his phone. Called back on cousins phone. states he feels ok and is not as monotonic as he has been. reports more activity but still sleeps a lot Copies to: CARLTON HEALY MD ; JAYLENE AGUILA Apr 17, 2018 15:57
[2018-04-18] MEDS ORDERED: ROBC PO (19:53)
--- NOTE | 2018-04-24 10:56 | Transitional Care Management ---
Assessment Cardiac Comment: 03/23 Denies chest pain. States edema is the same; still taking lasix 03/24 edema unchanged- still taking lasix as ordered. Enc him to elevate on a stool as he sits in a chair 24 hr aday wit feet down. 04/07 He says his legs are more swollen, takes lasix 40 mg /day. We discussed elevating his feet. 04/17 Doesnt have his recliner yet but says his feet are elevated on a stool with some pillows and that edema is "good". takes lasix bid Respiratory Comment: 03/23 Refused Bipap in hospital. States he is wearing 2 L as instructed though 4 L was his base before admission. Review s/s to report early to MD 03/24 Using O2/2l states he gets a little SOB with activity and he feels like he is getting a cold as he does have a cough. Enc him to use his inhalers as directed and do some CDB exercises. There are several small childern in home with runny noses and coughing. Enc him to call Dr sooner if cough gets worse. 04/07 His cold is persisting. 04/17 had cough today that ended PT sessioin early. States he has cough prn at noc and sputum is clear. Has 2 new nebs and states he has them and knows how to use them GI Comment: 03/23 states appetite "not so good". Taking BS bid, was 145 today. 03/24 BS remain stable. States "still no appitite" Enc him to tr some supplement ie Glycerina for protien and other nutrients, 04/17 still has nausea. has new metformin er to reduce D and nausea. only eats a few bites. states not taking colace due to D. Last BS was 119 Weight Comment: 03/24 Unable to weigh at [facility] as no scale or one that will wt him. He weights close to 400 #. I suggested he call [employer] or hospital and see if they could wt him every couple of days. Cousin halley lives in the house stated that they were looking for one in home he can buy. 04/07 No scale yet. 04/17 has documented wt loss of #50 over last mo. Constipation?: No (using new colace 03/24 states having loose green stools. He is taking colace BID, had already taken this AM on-had him hold HS and 03/25 AM one and see if that will help.) Comment: 03/23 has new flomax, denies problems 03/24 doesn't feel like he is foiding according to what he takes in. Enc him to speak to regarding this. This is another reason I would like him to wt ever couple of daus. Musculoskeletal, Excercise Com: 03/23 has walker, walked further today 03/24 He walked back from [place] with walker when I arrived and looked like he was doing well. His O2 Sats went down to 87% but quickly returned to 91-92% when he sat down 04/07 PT will see him to set up a treatment schedule on Tuesday Mobility Comment: 04/17 states PT is working with him and he is moving more Feeling of Well Being Comment: 03/23 pretty good. Sleeps in recliner at home. States mood is better with new welbutrin Socialization Comment: 03/24 Resides in a three bedroom 1 bath with 8 other people. A couple other persons sleep in the living room also. Cris sleeps in a chair (not a recliner)- suggested he get a stool to elevate feet. Pain/Management: WNL Except Pain/Management Comment: 03/24 C/o back pain- "Hurts to walk. Has been only taking Tylenol. I helped him start a list of questions to Dr Healy. Scheduled Follow-Up with Sonu: Yes Community Resources/HHC: 03/23 states he has f/u with Gosia Crowe next week. I called [facility] who states they cannot see him without a MD to follow. Called Niraj and got appt for 03/28 at 2:30. Pt agree to see this , states he can get transport and can get to appt 04/17 had f/u 04/11 and another at end of Apr. Primary Care Provider Visits: Yes Questions for Future PCP Visit: 03/23 will need RX renewed as he only has 30 days worth 04/17 nausea, poor appetite, persistent cough Following Discharge Instructio: Yes TCM Discharge Criteria Medication Knowledge: 03/23 reviewed new meds. asked about remeron that was dc when welbutrin started. Asked how he would remember to take meds bid routinely (as he stated previously that he frequently forgot). States he has medplanner 03/24 went over meds in med planner intern -graham has set it up for him in two planners- i for days and 1 for evens and she reminds him. 04/17 states lasix is bid, has new meds from MD Disease Management/Concern/Wha: 03/23 s/s COPD, pneumonia Transitional Care Comment: 03/09 He consents to the program and home visit. He has been in the ICU, intubated until 03/07, moved to the floor today. He is a little slow to answer questions, but knows his medications. We reviewed his meds, and COPD. 03/23 Has new rx. Will see new MD then be able to start PT and HHC. Have his new phone number but still had to contact him via [employer] phone 03/24 Visited with Ruddy today in [facility] apartment with many people different ages residing in. Ruddy sleeps in a chair 07/02 He did return from the [place] per walker and O2 while I was there but floor and coushes very cluttered. He stated " sister was trying to do some cleaning but she ambulates with a walker also." He states he knows he has a Dr appt on (/!! and he has a ride" I helped him right out some questions for the Dr and enc him to write down more as he thinks of it. he appeared to be ding "OK' 03/31 He was in the ER yesterday, unable to contact, message left. 04/01 Left message. 04/03 Ruddy doesn't answer his phone but, his cousin Aliza answered her phone and said he was sleeping. Says he sleeps alot after hospital dc and with his cold. He gets up to go to the bathroom and takes his meds with their reminding. [facility] has not started his PT. I called Tyra at [facility] who states she was going to see him today so PT could start. I told her about his c/o edema and that he was advised to decrease NA and fluids, elevate feet with foot rest instead of being dependent 07/02 in his chair. I asked her to verify his lasix dose as he was dc with lasix bid but on his intake form he stated he took it once a day 04/07 Increased edema, denies SOB. He says Dr Healy started him on some new meds, but he does not know the names or what they are for. 04/14 No answer-left message. See by Dr reddy he was to visit Dr Healy on 04/17 Called him 3 x today and Aliza x 2,jovanny. States he lost his phone. Called back on cousins phone. states he feels ok and is not as monotonic as he has been. reports more activity but still sleeps a lot 04/24 unable to contct either his phone or Aliza's. Left messages-see he had been in ER 04/18. JUSTIN GU Apr 24, 2018 10:56
--- NOTE | 2018-04-25 12:52 | Transitional Care Management ---
Assessment Cardiac Comment: 03/23 Denies chest pain. States edema is the same; still taking lasix 03/24 edema unchanged- still taking lasix as ordered. Enc him to elevate on a stool as he sits in a chair 24 hr aday wit feet down. 04/07 He says his legs are more swollen, takes lasix 40 mg /day. We discussed elevating his feet. 04/17 Doesnt have his recliner yet but says his feet are elevated on a stool with some pillows and that edema is "good". takes lasix bid Respiratory Comment: 03/23 Refused Bipap in hospital. States he is wearing 2 L as instructed though 4 L was his base before admission. Review s/s to report early to MD 03/24 Using O2/2l states he gets a little SOB with activity and he feels like he is getting a cold as he does have a cough. Enc him to use his inhalers as directed and do some CDB exercises. There are several small childern in home with runny noses and coughing. Enc him to call Dr sooner if cough gets worse. 04/07 His cold is persisting. 04/17 had cough today that ended PT sessioin early. States he has cough prn at [facility] and sputum is clear. Has 2 new nebs and states he has them and knows how to use them GI Comment: 03/23 states appetite "not so good". Taking BS bid, was 145 today. 03/24 BS remain stable. States "still no appitite" Enc him to tr some supplement ie Glycerina for protien and other nutrients, 04/17 still has nausea. has new metformin er to reduce D and nausea. only eats a few bites. states not taking colace due to D. Last BS was 119 Weight Comment: 03/24 Unable to weigh at [facility] as no scale or one that will wt him. He weights close to 400 #. I suggested he call [employer] or hospital and see if they could wt him every couple of days. Cousin halley lives in the house stated that they were looking for one in home he can buy. 04/07 No scale yet. 04/17 has documented wt loss of #50 over last mo. Constipation?: No (using new colace 03/24 states having loose green stools. He is taking colace BID, had already taken this AM on-had him hold HS and 03/25 AM one and see if that will help.) Comment: 03/23 has new flomax, denies problems 03/24 doesn't feel like he is foiding according to what he takes in. Enc him to speak to regarding this. This is another reason I would like him to wt ever couple of daus. Musculoskeletal, Excercise Com: 03/23 has walker, walked further today 03/24 He walked back from BR with walker when I arrived and looked like he was doing well. His O2 Sats went down to 87% but quickly returned to 91-92% when he sat down 04/07 PT will see him to set up a treatment schedule on Tuesday Mobility Comment: 04/17 states PT is working with him and he is moving more Feeling of Well Being Comment: 03/23 pretty good. Sleeps in recliner at home. States mood is better with new welbutrin Socialization Comment: 03/24 Resides in a three bedroom 1 bath with 8 other people. A couple other persons sleep in the living room also. Cris sleeps in a chair (not a recliner)- suggested he get a stool to elevate feet. Pain/Management: WNL Except Pain/Management Comment: 03/24 C/o back pain- "Hurts to walk. Has been only taking Tylenol. I helped him start a list of questions to Dr Healy. Scheduled Follow-Up with Sonu: Yes Community Resources/HHC: 03/23 states he has f/u with Gosia Crowe next week. I called [facility] who states they cannot see him without a MD to follow. Called Niraj and got appt for 03/28 at 2:30. Pt agree to see this , states he can get transport and can get to appt 04/17 had f/u 04/11 and another at end of Apr. Primary Care Provider Visits: Yes Questions for Future PCP Visit: 03/23 will need RX renewed as he only has 30 days worth 04/17 nausea, poor appetite, persistent cough Following Discharge Instructio: Yes TCM Discharge Criteria Medication Knowledge: 03/23 reviewed new meds. asked about remeron that was dc when welbutrin started. Asked how he would remember to take meds bid routinely (as he stated previously that he frequently forgot). States he has medplanner 03/24 went over meds in med conservation planner -graham has set it up for him in two planners- i for days and 1 for evens and she reminds him. 04/17 states lasix is bid, has new meds from MD Disease Management/Concern/Wha: 03/23 s/s COPD, pneumonia Transitional Care Comment: 03/09 He consents to the program and home visit. He has been in the ICU, intubated until 03/07, moved to the floor today. He is a little slow to answer questions, but knows his medications. We reviewed his meds, and COPD. 03/23 Has new rx. Will see new MD then be able to start PT and HHC. Have his new phone number but still had to contact him via [employer] phone 03/24 Visited with Ruddy today in [facility] apartment with many people different ages residing in. Ruddy sleeps in a chair 07/02 He did return from the BR per walker and O2 while I was there but floor and coushes very cluttered. He stated " sister was trying to do some cleaning but she ambulates with a walker also." He states he knows he has a Dr appt on (/!! and he has a ride" I helped him right out some questions for the Dr and enc him to write down more as he thinks of it. he appeared to be ding "OK' 03/31 He was in the ER yesterday, unable to contact, message left. 04/01 Left message. 04/03 Ruddy doesn't answer his phone but, his cousin Aliza answered her phone and said he was sleeping. Says he sleeps alot after hospital dc and with his cold. He gets up to go to the bathroom and takes his meds with their reminding. [facility] has not started his PT. I called Tyra at [facility] who states she was going to see him today so PT could start. I told her about his c/o edema and that he was advised to decrease NA and fluids, elevate feet with foot rest instead of being dependent 07/02 in his chair. I asked her to verify his lasix dose as he was dc with lasix bid but on his intake form he stated he took it once a day 04/07 Increased edema, denies SOB. He says Dr Healy started him on some new meds, but he does not know the names or what they are for. 04/14 No answer-left message. See by Dr reddy he was to visit Dr Healy on 04/17 Called him 3 x today and Aliza x 2,leftmustaphasges. States he lost his phone. Called back on cousins phone. states he feels ok and is not as monotonic as he has been. reports more activity but still sleeps a lot 04/24 unable to contct either his phone or Aliza's. Left messages-see he had been in ER 04/18. 04/25 Unable to contact by his or his sister Aliza's phones. Copies to: CARLTON HEALY MD ; JUSTIN GU Apr 25, 2018 12:52
--- NOTE | 2018-04-29 14:56 | Transitional Care Management ---
Assessment Visit Type: Telephone Visit Spoke with: [facility] Comment: 03/23 Denies chest pain. States edema is the same; still taking lasix 03/24 edema unchanged- still taking lasix as ordered. Enc him to elevate on a stool as he sits in a chair 24 hr aday wit feet down. 04/07 He says his legs are more swollen, takes lasix 40 mg /day. We discussed elevating his feet. 04/29 Reduced edema. He has a recliner now, so he sits with feet elevated. 04/17 Doesnt have his recliner yet but says his feet are elevated on a stool with some pillows and that edema is "good". takes lasix bid Respiratory Comment: 03/23 Refused Bipap in hospital. States he is wearing 2 L as instructed though 4 L was his base before admission. Review s/s to report early to MD 03/24 Using O2/2l states he gets a little SOB with activity and he feels like he is getting a cold as he does have a cough. Enc him to use his inhalers as directed and do some CDB exercises. There are several small childern in home with runny noses and coughing. Enc him to call Dr sooner if cough gets worse. 04/07 His cold is persisting. 04/17 had cough today that ended PT sessioin early. States he has cough prn at [facility] and sputum is clear. Has 2 new nebs and states he has them and knows how to use them 04/29 Has needed 3L since going to the ER. Sore throat and cough have resolved. GI Comment: 03/23 states appetite "not so good". Taking BS bid, was 145 today. 03/24 BS remain stable. States "still no appitite" Enc him to tr some supplement ie Glycerina for protien and other nutrients, 04/17 still has nausea. has new metformin er to reduce D and nausea. only eats a few bites. states not taking colace due to D. Last BS was 119 04/29 Reports diarrhea for the last month. Weight Comment: 03/24 Unable to weigh at [facility] as no scale or one that will wt him. He weights close to 400 #. I suggested he call [employer] or hospital and see if they could wt him every couple of days. Cousin halley lives in the house stated that they were looking for one in home he can buy. 04/07 No scale yet. 04/17 has documented wt loss of #50 over last mo. 04/29 Continued weight loss, less edema. Constipation?: No (using new colace 03/24 states having loose green stools. He is taking colace BID, had already taken this AM on-had him hold HS and 03/25 AM one and see if that will help.) Comment: 03/23 has new flomax, denies problems 03/24 doesn't feel like he is foiding according to what he takes in. Enc him to speak to Dr regarding this. This is another reason I would like him to wt ever couple of daus. Musculoskeletal, Excercise Com: 03/23 has walker, walked further today 03/24 He walked back from BR with walker when I arrived and looked like he was doing well. His O2 Sats went down to 87% but quickly returned to 91-92% when he sat down 04/07 PT will see him to set up a treatment schedule on Tuesday Mobility Comment: 04/17 states PT is working with him and he is moving more 04/29 Works with PT, and takes walks around his appartment complex at least once a day. Feeling of Well Being Comment: 03/23 pretty good. Sleeps in recliner at home. States mood is better with new welbutrin Socialization Comment: 03/24 Resides in a three bedroom 1 bath with 8 other people. A couple other persons sleep in the living room also. Cris sleeps in a chair (not a recliner)- suggested he get a stool to elevate feet. Pain/Management: WNL Except Pain/Management Comment: 03/24 C/o back pain- "Hurts to walk. Has been only taking Tylenol. I helped him start a list of questions to Dr Healy. Scheduled Follow-Up with Peggyi: Yes (sees Dr Healy on 05/12) Community Resources/HHC: 03/23 states he has f/u with Gosia Crowe next week. I called [facility] who states they cannot see him without a MD to follow. Called [facility]ir[facility] and got appt for 03/28 at 2:30. Pt agree to see this , states he can get transport and can get to appt 04/17 had f/u 04/11 and another at end of Apr. Primary Care Provider Visits: Yes Questions for Future PCP Visit: 03/23 will need RX renewed as he only has 30 days worth 04/17 nausea, poor appetite, persistent cough 04/29 Loose stools Following Discharge Instructio: Yes TCM Discharge Criteria Medication Knowledge: 03/23 reviewed new meds. asked about remeron that was dc when welbutrin started. Asked how he would remember to take meds bid routinely (as he stated previously that he frequently forgot). States he has medplanner 03/24 went over meds in med [facility] [employer] planner -niece has set it up for him in two planners- i for days and 1 for evens and she reminds him. 04/17 states lasix is bid, has new meds from [facility] Disease Management/Concern/Wha: 03/23 s/s COPD, pneumonia Transitional Care Comment: 03/09 He consents to the program and home visit. He has been in the ICU, intubated until 03/07, moved to the floor today. He is a little slow to answer questions, but knows his medications. We reviewed his meds, and COPD. 03/23 Has new rx. Will see new MD then be able to start PT and HHC. Have his new phone number but still had to contact him via [employer] phone 03/24 Visited with Ruddy today in [facility] apartment with many people different ages residing in. Ruddy sleeps in a chair 07/02 He did return from the BR per walker and O2 while I was there but floor and coushes very cluttered. He stated " sister was trying to do some cleaning but she ambulates with a walker also." He states he knows he has a Dr appt on (/!! and he has a ride" I helped him right out some questions for the Dr and enc him to write down more as he thinks of it. he appeared to be ding "OK' 03/31 He was in the ER yesterday, unable to contact, message left. 04/01 Left message. 04/03 Ruddy doesn't answer his phone but, his cousin Aliza answered her phone and said he was sleeping. Says he sleeps alot after hospital dc and with his cold. He gets up to go to the bathroom and takes his meds with their reminding. [facility] has not started his PT. I called Tyra at [facility] who states she was going to see him today so PT could start. I told her about his c/o edema and that he was advised to decrease NA and fluids, elevate feet with foot rest instead of being dependent 07/02 in his chair. I asked her to verify his lasix dose as he was dc with lasix bid but on his intake form he stated he took it once a day 04/07 Increased edema, denies SOB. He says Dr Healy started him on some new meds, but he does not know the names or what they are for. 04/14 No answer-left message. See by Dr reddy he was to visit Dr Healy on 04/17 Called him 3 x today and Aliza x 2jovanny. States he lost his phone. Called back on cousins phone. states he feels ok and is not as monotonic as he has been. reports more activity but still sleeps a lot 04/24 unable to contct either his phone or Aliza's. Left messages-see he had been in ER 04/18. 04/25 Unable to contact by his or his sister Aliza's phones. 04/29 I reached him on his phone, . His symptoms have resolved since going to the ER on 04/18, though he is unable to return his O2 to 2L without SOB. He is currently on 3L. He is losing weight and increasing his activity. His concern is diarrhea, which has persisted for a month. TRACEE REARDON Apr 29, 2018 14:56
--- NOTE | 2018-05-06 12:00 | Transitional Care Management ---
Assessment Cardiac Comment: 03/23 Denies chest pain. States edema is the same; still taking lasix 03/24 edema unchanged- still taking lasix as ordered. Enc him to elevate on a stool as he sits in a chair 24 hr aday wit feet down. 04/07 He says his legs are more swollen, takes lasix 40 mg /day. We discussed elevating his feet. 04/29 Reduced edema. He has a recliner now, so he sits with feet elevated. 04/17 Doesnt have his recliner yet but says his feet are elevated on a stool with some pillows and that edema is "good". takes lasix bid Respiratory Comment: 03/23 Refused Bipap in hospital. States he is wearing 2 L as instructed though 4 L was his base before admission. Review s/s to report early to MD 03/24 Using O2/2l states he gets a little SOB with activity and he feels like he is getting a cold as he does have a cough. Enc him to use his inhalers as directed and do some CDB exercises. There are several small childern in home with runny noses and coughing. Enc him to call Dr sooner if cough gets worse. 04/07 His cold is persisting. 04/17 had cough today that ended PT sessioin early. States he has cough prn at [facility] and sputum is clear. Has 2 new nebs and states he has them and knows how to use them 04/29 Has needed 3L since going to the ER. Sore throat and cough have resolved. GI Comment: 03/23 states appetite "not so good". Taking BS bid, was 145 today. 03/24 BS remain stable. States "still no appitite" Enc him to tr some supplement ie Glycerina for protien and other nutrients, 04/17 still has nausea. has new metformin er to reduce D and nausea. only eats a few bites. states not taking colace due to D. Last BS was 119 04/29 Reports diarrhea for the last month. Weight Comment: 03/24 Unable to weigh at [facility] as no scale or one that will wt him. He weights close to 400 #. I suggested he call [employer] or hospital and see if they could wt him every couple of days. Cousin halley lives in the house stated that they were looking for one in home he can buy. 04/07 No scale yet. 04/17 has documented wt loss of #50 over last mo. 04/29 Continued weight loss, less edema. Constipation?: No (using new colace 03/24 states having loose green stools. He is taking colace BID, had already taken this AM on-had him hold HS and 03/25 AM one and see if that will help.) Comment: 03/23 has new flomax, denies problems 03/24 doesn't feel like he is foiding according to what he takes in. Enc him to speak to Dr regarding this. This is another reason I would like him to wt ever couple of daus. Musculoskeletal, Excercise Com: 03/23 has walker, walked further today 03/24 He walked back from BR with walker when I arrived and looked like he was doing well. His O2 Sats went down to 87% but quickly returned to 91-92% when he sat down 04/07 PT will see him to set up a treatment schedule on Tuesday Mobility Comment: 04/17 states PT is working with him and he is moving more 04/29 Works with PT, and takes walks around his appartment complex at least once a day. Feeling of Well Being Comment: 03/23 pretty good. Sleeps in recliner at home. States mood is better with new welbutrin Socialization Comment: 03/24 Resides in a three bedroom 1 bath with 8 other people. A couple other persons sleep in the living room also. Cris sleeps in a chair (not a recliner)- suggested he get a stool to elevate feet. Pain/Management: WNL Except Pain/Management Comment: 03/24 C/o back pain- "Hurts to walk. Has been only taking Tylenol. I helped him start a list of questions to Dr Healy. Scheduled Follow-Up with Sonu: Yes (sees Dr Healy on 05/12) Community Resources/HHC: 03/23 states he has f/u with Gosia Crowe next week. I called [facility] who states they cannot see him without a MD to follow. Called Niraj and got appt for 03/28 at 2:30. Pt agree to see this , states he can get transport and can get to appt 04/17 had f/u 04/11 and another at end of Apr. Primary Care Provider Visits: Yes Questions for Future PCP Visit: 03/23 will need RX renewed as he only has 30 days worth 04/17 nausea, poor appetite, persistent cough 04/29 Loose stools Following Discharge Instructio: Yes TCM Discharge Criteria Medication Knowledge: 03/23 reviewed new meds. asked about remeron that was dc when welbutrin started. Asked how he would remember to take meds bid routinely (as he stated previously that he frequently forgot). States he has medplanner 03/24 went over meds in med information systems planner -niece has set it up for him in two planners- i for days and 1 for evens and she reminds him. 04/17 states lasix is bid, has new meds from [facility] Disease Management/Concern/Wha: 03/23 s/s COPD, pneumonia Transitional Care Comment: 03/09 He consents to the program and home visit. He has been in the ICU, intubated until 03/07, moved to the floor today. He is a little slow to answer questions, but knows his medications. We reviewed his meds, and COPD. 03/23 Has new rx. Will see new MD then be able to start PT and HHC. Have his new phone number but still had to contact him via [employer] phone 03/24 Visited with Ruddy today in [facility] apartment with many people different ages residing in. Ruddy sleeps in a chair 07/02 He did return from the [place] per walker and O2 while I was there but floor and coushes very cluttered. He stated " sister was trying to do some cleaning but she ambulates with a walker also." He states he knows he has a Dr appt on (/!! and he has a ride" I helped him right out some questions for the Dr and enc him to write down more as he thinks of it. he appeared to be ding "OK' 03/31 He was in the ER yesterday, unable to contact, message left. 04/01 Left message. 04/03 Ruddy doesn't answer his phone but, his cousin Aliza answered her phone and said he was sleeping. Says he sleeps alot after hospital dc and with his cold. He gets up to go to the bathroom and takes his meds with their reminding. [facility] has not started his PT. I called Tyra at [facility] who states she was going to see him today so PT could start. I told her about his c/o edema and that he was advised to decrease NA and fluids, elevate feet with foot rest instead of being dependent 07/02 in his chair. I asked her to verify his lasix dose as he was dc with lasix bid but on his intake form he stated he took it once a day 04/07 Increased edema, denies SOB. He says Dr Healy started him on some new meds, but he does not know the names or what they are for. 04/14 No answer-left message. See by Dr reddy he was to visit Dr Healy on 04/17 Called him 3 x today and Aliza x 2,jovanny. States he lost his phone. Called back on cousins phone. states he feels ok and is not as monotonic as he has been. reports more activity but still sleeps a lot 04/24 unable to contct either his phone or Aliza's. Left messages-see he had been in ER 04/18. 04/25 Unable to contact by his or his sister Aliza's phones. 04/29 I reached him on his phone, . His symptoms have resolved since going to the ER on 04/18, though he is unable to return his O2 to 2L without SOB. He is currently on 3L. He is losing weight and increasing his activity. His concern is diarrhea, which has persisted for a month. 05/06 no answer; left JAYLENE West May 06, 2018 12:00
--- NOTE | 2018-05-08 13:33 | Transitional Care Management ---
Assessment Cardiac Comment: 03/23 Denies chest pain. States edema is the same; still taking lasix 03/24 edema unchanged- still taking lasix as ordered. Enc him to elevate on a stool as he sits in a chair 24 hr aday wit feet down. 04/07 He says his legs are more swollen, takes lasix 40 mg /day. We discussed elevating his feet. 04/29 Reduced edema. He has a recliner now, so he sits with feet elevated. 04/17 Doesnt have his recliner yet but says his feet are elevated on a stool with some pillows and that edema is "good". takes lasix bid Respiratory Comment: 03/23 Refused Bipap in hospital. States he is wearing 2 L as instructed though 4 L was his base before admission. Review s/s to report early to MD 03/24 Using O2/2l states he gets a little SOB with activity and he feels like he is getting a cold as he does have a cough. Enc him to use his inhalers as directed and do some CDB exercises. There are several small childern in home with runny noses and coughing. Enc him to call Dr sooner if cough gets worse. 04/07 His cold is persisting. 04/17 had cough today that ended PT sessioin early. States he has cough prn at [facility] and sputum is clear. Has 2 new nebs and states he has them and knows how to use them 04/29 Has needed 3L since going to the ER. Sore throat and cough have resolved. GI Comment: 03/23 states appetite "not so good". Taking BS bid, was 145 today. 03/24 BS remain stable. States "still no appitite" Enc him to tr some supplement ie Glycerina for protien and other nutrients, 04/17 still has nausea. has new metformin er to reduce D and nausea. only eats a few bites. states not taking colace due to D. Last BS was 119 04/29 Reports diarrhea for the last month. Weight Comment: 03/24 Unable to weigh at [facility] as no scale or one that will wt him. He weights close to 400 #. I suggested he call [employer] or hospital and see if they could wt him every couple of days. Cousin halley lives in the house stated that they were looking for one in home he can buy. 04/07 No scale yet. 04/17 has documented wt loss of #50 over last mo. 04/29 Continued weight loss, less edema. Constipation?: No (using new colace 03/24 states having loose green stools. He is taking colace BID, had already taken this AM on-had him hold HS and 03/25 AM one and see if that will help.) Comment: 03/23 has new flomax, denies problems 03/24 doesn't feel like he is foiding according to what he takes in. Enc him to speak to Dr regarding this. This is another reason I would like him to wt ever couple of daus. Musculoskeletal, Excercise Com: 03/23 has walker, walked further today 03/24 He walked back from [facility] with walker when I arrived and looked like he was doing well. His O2 Sats went down to 87% but quickly returned to 91-92% when he sat down 04/07 PT will see him to set up a treatment schedule on Tuesday Mobility Comment: 04/17 states PT is working with him and he is moving more 04/29 Works with PT, and takes walks around his appartment complex at least once a day. Feeling of Well Being Comment: 03/23 pretty good. Sleeps in recliner at home. States mood is better with new welbutrin Socialization Comment: 03/24 Resides in a three bedroom 1 bath with 8 other people. A couple other persons sleep in the living room also. Cris sleeps in a chair (not a recliner)- suggested he get a stool to elevate feet. Pain/Management: WNL Except Pain/Management Comment: 03/24 C/o back pain- "Hurts to walk. Has been only taking Tylenol. I helped him start a list of questions to Dr Healy. Scheduled Follow-Up with Sonu: Yes (sees Dr Healy on 05/12) Community Resources/HHC: 03/23 states he has f/u with Gosia Crowe next week. I called [facility] who states they cannot see him without a MD to follow. Called [facility] and got appt for 03/28 at 2:30. Pt agree to see this , states he can get transport and can get to appt 04/17 had f/u 04/11 and another at end of Apr. Primary Care Provider Visits: Yes Questions for Future PCP Visit: 03/23 will need RX renewed as he only has 30 days worth 04/17 nausea, poor appetite, persistent cough 04/29 Loose stools Following Discharge Instructio: Yes TCM Discharge Criteria Medication Knowledge: 03/23 reviewed new meds. asked about remeron that was dc when welbutrin started. Asked how he would remember to take meds bid routinely (as he stated previously that he frequently forgot). States he has medplanner 03/24 went over meds in med service planner -niece has set it up for him in two planners- i for days and 1 for evens and she reminds him. 04/17 states lasix is bid, has new meds from MD Disease Management/Concern/Wha: 03/23 s/s COPD, pneumonia Transitional Care Comment: 03/09 He consents to the program and home visit. He has been in the ICU, intubated until 03/07, moved to the floor today. He is a little slow to answer questions, but knows his medications. We reviewed his meds, and COPD. 03/23 Has new rx. Will see new MD then be able to start PT and HHC. Have his new phone number but still had to contact him via Jennifer phone 03/24 Visited with Ruddy today in [facility] apartment with many people different ages residing in. Ruddy sleeps in a chair 07/02 He did return from the BR per walker and O2 while I was there but floor and coushes very cluttered. He stated " sister was trying to do some cleaning but she ambulates with a walker also." He states he knows he has a Dr appt on (/!! and he has a ride" I helped him right out some questions for the Dr and enc him to write down more as he thinks of it. he appeared to be ding "OK' 03/31 He was in the ER yesterday, unable to contact, message left. 04/01 Left message. 04/03 Ruddy doesn't answer his phone but, his cousin Aliza answered her phone and said he was sleeping. Says he sleeps alot after hospital dc and with his cold. He gets up to go to the bathroom and takes his meds with their reminding. [facility] has not started his PT. I called Tyra at [facility] who states she was going to see him today so PT could start. I told her about his c/o edema and that he was advised to decrease NA and fluids, elevate feet with foot rest instead of being dependent 07/02 in his chair. I asked her to verify his lasix dose as he was dc with lasix bid but on his intake form he stated he took it once a day 04/07 Increased edema, denies SOB. He says Dr Healy started him on some new meds, but he does not know the names or what they are for. 04/14 No answer-left message. See by Dr reddy he was to visit Dr Healy on 04/17 Called him 3 x today and Aliza x 2,jovanny. States he lost his phone. Called back on cousins phone. states he feels ok and is not as monotonic as he has been. reports more activity but still sleeps a lot 04/24 unable to contct either his phone or Laiza's. Left messages-see he had been in ER 04/18. 04/25 Unable to contact by his or his sister Aliza's phones. 04/29 I reached him on his phone, . His symptoms have resolved since going to the ER on 04/18, though he is unable to return his O2 to 2L without SOB. He is currently on 3L. He is losing weight and increasing his activity. His concern is diarrhea, which has persisted for a month. no answer; left JAYLENE West May 08, 2018 13:33
[2018-05-09] MEDS ORDERED: FURO-47 PO (14:24)
--- NOTE | 2018-05-10 12:56 | Transitional Care Management ---
Assessment Cardiac Comment: 03/23 Denies chest pain. States edema is the same; still taking lasix 03/24 edema unchanged- still taking lasix as ordered. Enc him to elevate on a stool as he sits in a chair 24 hr aday wit feet down. 04/07 He says his legs are more swollen, takes lasix 40 mg /day. We discussed elevating his feet. 04/29 Reduced edema. He has a recliner now, so he sits with feet elevated. 04/17 Doesnt have his recliner yet but says his feet are elevated on a stool with some pillows and that edema is "good". takes lasix bid Respiratory Comment: 03/23 Refused Bipap in hospital. States he is wearing 2 L as instructed though 4 L was his base before admission. Review s/s to report early to MD 03/24 Using O2/2l states he gets a little SOB with activity and he feels like he is getting a cold as he does have a cough. Enc him to use his inhalers as directed and do some CDB exercises. There are several small childern in home with runny noses and coughing. Enc him to call Dr sooner if cough gets worse. 04/07 His cold is persisting. 04/17 had cough today that ended PT sessioin early. States he has cough prn at [facility] and sputum is clear. Has 2 new nebs and states he has them and knows how to use them 04/29 Has needed 3L since going to the ER. Sore throat and cough have resolved. GI Comment: 03/23 states appetite "not so good". Taking BS bid, was 145 today. 03/24 BS remain stable. States "still no appitite" Enc him to tr some supplement ie Glycerina for protien and other nutrients, 04/17 still has nausea. has new metformin er to reduce D and nausea. only eats a few bites. states not taking colace due to D. Last BS was 119 04/29 Reports diarrhea for the last month. Weight Comment: 03/24 Unable to weigh at [facility] as no scale or one that will wt him. He weights close to 400 #. I suggested he call [employer] or hospital and see if they could wt him every couple of days. Cousin halley lives in the house stated that they were looking for one in home he can buy. 04/07 No scale yet. 04/17 has documented wt loss of #50 over last mo. 04/29 Continued weight loss, less edema. Constipation?: No (using new colace 03/24 states having loose green stools. He is taking colace BID, had already taken this AM on-had him hold HS and 03/25 AM one and see if that will help.) Comment: 03/23 has new flomax, denies problems 03/24 doesn't feel like he is foiding according to what he takes in. Enc him to speak to Dr regarding this. This is another reason I would like him to wt ever couple of daus. Musculoskeletal, Excercise Com: 03/23 has walker, walked further today 03/24 He walked back from BR with walker when I arrived and looked like he was doing well. His O2 Sats went down to 87% but quickly returned to 91-92% when he sat down 04/07 PT will see him to set up a treatment schedule on Tuesday Mobility Comment: 04/17 states PT is working with him and he is moving more 04/29 Works with PT, and takes walks around his appartment complex at least once a day. Feeling of Well Being Comment: 03/23 pretty good. Sleeps in recliner at home. States mood is better with new welbutrin Socialization Comment: 03/24 Resides in a three bedroom 1 bath with 8 other people. A couple other persons sleep in the living room also. Cris sleeps in a chair (not a recliner)- suggested he get a stool to elevate feet. Pain/Management: WNL Except Pain/Management Comment: 03/24 C/o back pain- "Hurts to walk. Has been only taking Tylenol. I helped him start a list of questions to Dr Healy. Scheduled Follow-Up with Sonu: Yes (sees Dr Healy on 05/12) Community Resources/HHC: 03/23 states he has f/u with Gosia rCowe next week. I called [facility] who states they cannot see him without a MD to follow. Called [facility] and got appt for 03/28 at 2:30. Pt agree to see this , states he can get transport and can get to appt 04/17 had f/u 04/11 and another at end of Apr. Primary Care Provider Visits: Yes Questions for Future PCP Visit: 03/23 will need RX renewed as he only has 30 days worth 04/17 nausea, poor appetite, persistent cough 04/29 Loose stools Following Discharge Instructio: Yes TCM Discharge Criteria Medication Knowledge: 03/23 reviewed new meds. asked about remeron that was dc when welbutrin started. Asked how he would remember to take meds bid routinely (as he stated previously that he frequently forgot). States he has medplanner 03/24 went over meds in med maintenance planner -niece has set it up for him in two planners- i for days and 1 for evens and she reminds him. 04/17 states lasix is bid, has new meds from [facility] Disease Management/Concern/Wha: 03/23 s/s COPD, pneumonia Transitional Care Comment: 03/09 He consents to the program and home visit. He has been in the ICU, intubated until 03/07, moved to the floor today. He is a little slow to answer questions, but knows his medications. We reviewed his meds, and COPD. 03/23 Has new rx. Will see new MD then be able to start PT and HHC. Have his new phone number but still had to contact him via Jennifer phone 03/24 Visited with Ruddy today in [facility] apartment with many people different ages residing in. Ruddy sleeps in a chair 07/02 He did return from the BR per walker and O2 while I was there but floor and coushes very cluttered. He stated " sister was trying to do some cleaning but she ambulates with a walker also." He states he knows he has a Dr appt on (/!! and he has a ride" I helped him right out some questions for the Dr and enc him to write down more as he thinks of it. he appeared to be ding "OK' 03/31 He was in the ER yesterday, unable to contact, message left. 04/01 Left message. 04/03 Ruddy doesn't answer his phone but, his cousin Aliza answered her phone and said he was sleeping. Says he sleeps alot after hospital dc and with his cold. He gets up to go to the bathroom and takes his meds with their reminding. [facility] has not started his PT. I called Tyra at [facility] who states she was going to see him today so PT could start. I told her about his c/o edema and that he was advised to decrease NA and fluids, elevate feet with foot rest instead of being dependent 07/02 in his chair. I asked her to verify his lasix dose as he was dc with lasix bid but on his intake form he stated he took it once a day 04/07 Increased edema, denies SOB. He says Dr Healy started him on some new meds, but he does not know the names or what they are for. 04/14 No answer-left message. See by Dr reddy he was to visit Dr Healy on 04/17 Called him 3 x today and Aliza x 2,jovanny. States he lost his phone. Called back on cousins phone. states he feels ok and is not as monotonic as he has been. reports more activity but still sleeps a lot 04/24 unable to contct either his phone or Aliza's. Left messages-see he had been in ER 04/18. 04/25 Unable to contact by his or his sister Aliza's phones. 04/29 I reached him on his phone, . His symptoms have resolved since going to the ER on 04/18, though he is unable to return his O2 to 2L without SOB. He is currently on 3L. He is losing weight and increasing his activity. His concern is diarrhea, which has persisted for a month. no answer; left messge 05/10 Unable to contact-left message. Roger from [facility] d/t not able to contact Copies to: CARLTON HEALY MD ; JUSTIN GU May 10, 2018 12:56
== END 2018-05-10 18:00 | disposition home or self-care (01) ==
LOC: TCM 07:16
PROVIDERS: ATTEND Nurse Practitioner
DX: Z02.9 Encounter for administrative examinations, unspecified (principal)

== ENCOUNTER 2018-03-15 12:24 | Inpatient (IN) | payer MEDICAID ==
[2018-03-02 12:26] VITALS: Wt 176.4 kg
[~2018-03-15 12:24] MED LIST changes: +METF-411 PO; +METF-421 PO; -METF-450 PO; -METF-452 PO
[2018-03-15] MEDS ORDERED: POTASSIUM CHL 20 MEQ TABCR PO SCH (12:49)
[2018-03-15] MEDS ORDERED: POLYETHYLENE GLYCOL 17 GM PKT PO SCH (12:49)
[2018-03-15] MEDS ORDERED: DOCUSATE SODIUM 100 MG CAP PO SCH (12:49)
[2018-03-15] MEDS ORDERED: ACETAMINOPHEN 500 MG TAB PO PRN (12:49)
[2018-03-15] MEDS ORDERED: MAGNESIUM HYDROXIDE* 30ML UDCP PO PRN (12:49)
[2018-03-15] MEDS ORDERED: BISACODYL 10 MG SUPP PR PRN (12:49)
[2018-03-15] MEDS ORDERED: IBUPROFEN 200 MG TAB PO PRN (12:49)
[2018-03-15] MEDS ORDERED: ALBUTEROL 2.5 MG/3 ML NEB NEB PRN (12:49)
[2018-03-15] MEDS ORDERED: POLYETHYLENE GLYCOL 17 GM PKT PO PRN (12:55)
[2018-03-15] MEDS ORDERED: DOCUSATE SODIUM 100 MG CAP PO PRN (12:55)
--- NOTE | 2018-03-15 15:41 | OT ECF NOTE ---
Type of Note: Initial Note Primary Medical Diagnosis: Generalized weakness s/p sepsis due to pneumonia/hypoxia/AMS Occupational Therapy Evaluation Date: 03/15/18 SUBJECTIVE: Prior Hospitalization: H 03/01/18 thru 03/15/18 Prior Level of Function: Mod (I) ADLs, Mod (I) IADLs. Pt reporting increased difficulty with LB dressing prior to admission. Prior Living Status: Apartment, Living with family Community Services: No known needs Home Accessibility: All needs on one level Tub/shower combination Equipment Owned: Front wheeled walker Medical Complications/Past Medical History: Please refer to EMR Psychosocial Support: Resides with family Pain Scale (0-10): None reported during evaluation. OBJECTIVE: Strength: MMT: Right Left Shoulder Flexion WFL WFL Elbow Flexion WFL WFL Wrist Extension WFL WFL Watchstander WFL WFL (5= normal, 4= good, 3= fair, 2= poor, 1= trace) ROM: Both upper extremities, WFL Sensation: Intact, no concerns Functional Transfer: Assistive Device: Front wheeled walker, Gait belt Transfer Ability: CGA ambulation x15 with multiple standing rest breaks. Occasional Min A for O2 tubing management ADL: Upper body dressing: Assistive device: None Upper body dressing ability: Minimum assistance Lower body dressing: Assistive device: None. May benefit from AE education Lower body dressing ability: Maximum assistance Toileting: Assistive device: Toileting ability: N/T Grooming/hygiene: Assistive device: Grooming ability: N/T Bathing: Assistive device: Pt will benefit from education regarding obtaining an extended tub transfer bench Bathing ability: N/T Standardized Assessment: Joyce Index of Activities of Daily Livin/20 upon initial evaluation (03/15/18). ASSESSMENT: "Ruddy" presents to [facility] with generalized weakness s/p recent hospital admission. At [facility], he was Mod (I) for ADLs, ambulating with a RW. Currently, he requires Min A-CGA ambulation short distances and increased assist for all ADLs. He will benefit from skilled OT services to improve activity tolerance, receive AE education, and optimize (I) with ADLs. Problem List/Current Limitations: Decreased activity tolerance Decreased strength Decreased ROM Decreased balance Generalized weakness Short Term Goals: 1) Pt will be SBA UB/LB dressing. 2) Pt will be SBA grooming/hygiene. 3) Pt will be SBA toilet task. 4) Pt will be Min A shower task. 5) Pt Joyce Index of ADLs score will improve by 2 points. Library Customer Service Clerk Goals: Return home with service Patient Goals: "Walk to bathroom" "Get home" Rehabilitation Prognosis: Good Barriers to Discharge: Medical hx PLAN: The patient will benefit from skilled occupational therapy services 5 times per week for 2 weeks including: Ther ex ADL training Safety training Ther act IADL training Transfer training Adaptive equip training Bed mobility Energy conservation Thank you for this referral. If you have any questions, concerns, or comments about this report or plan, please contact me at . Arely Fong MS, OTR/L Occupational Therapist [facility]IZA
[2018-03-15] MEDS: metFORMIN HCL 500 MG TAB PO SCH (16:29)
[2018-03-15 19:00] VITALS: BP 121/74
[2018-03-15] MEDS: guaiFENesin 600 MG TABCR PO SCH (20:50)
[2018-03-15] MEDS: INSULIN HUM LISPRO 100 UN/ML 3 ML VIAL SUBQ PRN (20:50)
[2018-03-15] MEDS: POTASSIUM CHL PWDR 20 MEQ PKT PO SCH (20:50)
[2018-03-16] MEDS: TIOTROPIUM BROM INH 18 MCG/CAP INH SCH (06:02)
[2018-03-16 08:00] VITALS: BP 123/74
[2018-03-16] MEDS: PANTOPRAZOLE SOD 40 MG TABEC PO SCH (08:35)
[2018-03-16] MEDS: guaiFENesin 600 MG TABCR PO SCH ×2 (08:35→20:28)
[2018-03-16] MEDS: ENOXAPARIN 40 MG/0.4ML SYR SC SCH (08:35)
[2018-03-16] MEDS: FUROSEMIDE 40 MG TAB PO SCH (08:35)
[2018-03-16] MEDS: TAMSULOSIN HCL 0.4 MG CAP PO SCH (08:35)
[2018-03-16] MEDS: buPROPion SR 150 MG TABCR PO SCH (08:35)
[2018-03-16] MEDS: POTASSIUM CHL PWDR 20 MEQ PKT PO SCH ×2 (08:35→20:28)
[2018-03-16] MEDS: metFORMIN HCL 500 MG TAB PO SCH ×2 (08:35→16:40)
--- NOTE | 2018-03-16 14:53 | ECF H&P BLANK ---
[facility] H&P UPDATE Late entry for date 03/15/18. History of Present Illness Chief Complaint Shortness of breath History of Present Illness This patient presented to the emergency department complaining of shortness of breath. He was intubated in the emergency department. His records do indicate that he was seen in the emergency room 2 days ago for a COPD exacerbation and was treated with prednisone. History Problems: (1) DM2 (diabetes mellitus, type 2) (2) COPD exacerbation Status: Acute Home Meds Active Scripts Prednisone (PREDNISONE) 20 Mg Tablet, 20 MG PO QDAY for reduce lung inflammation for 7 Days, #5 Prov:RUBÉN STRONG DO 02/28/18 Ondansetron (ZOFRAN ODT) 4 Mg Tab.rapdis, 4 MG PO every 6 hours Y for NAUSE A/VOMITING, #10 TAB TAKE 1 TABLET BY MOUTH EVERY 12 HOURS Prov:RUBÉN STRONG DO 02/28/18 Reported Medications Potassium Gluconate (POTASSIUM) 99 Mg Tablet, PO QDAY 02/27/18 Furosemide (LASIX) 20 Mg Tablet, 2 TAB PO QDAY, TAB 02/17/18 Metformin Hcl (METFORMIN HCL) 1,000 Mg Tablet, 1 TAB PO BID, TAB 02/17/18 Tiotropium [place] (SPIRIVA) 18 Mcg/Cap Inh, 18 MCG INH QDAY, INH 02/17/18 Albuterol Sulfate 0.083% (ALBUTEROL SULFATE 0.083%) 2.5 Mg/3 Ml Vial.neb, 2.5 MG INH PRN, INH 02/17/18 Albuterol Sulfate 90 Mcg/Act (PROAIR HFA 90 MCG/ACT) 8.5 Gm Hfa.aer.ad, 2 PUFF IH Q4-6H Y for SHORTNESS OF BREATH, INHALER 02/17/18 Allergies: Coded Allergies: shellfish derived (Verified Allergy, Severe, THROAT SWELLING, 02/28/18) montelukast (Verified Allergy, Intermediate, SINUS INFECTIONS, 02/28/18) Review of Systems All Systems Reviewed/Normal: Yes, Except as Noted Respiratory: Shortness of Breath Exam Vital Signs Vital Signs Date Time Temp Pulse Resp B/P (MAP) Pulse Ox O2 Delivery O2 Flow Rate FiO2 03/02/18 01:05 100.0 03/02/18 00:42 ??? 15 93 03/02/18 00:39 100/72 (81) 03/01/18 22:22 Mechanical Ventilator Neuro: Other (Sedated to RASS -3) Eyes: PERRLA Cardiovascular: Regular Rate and Rhythm Respiratory: Other (Bilateral breath sounds present.) GI: Abd Soft and Non-Tender Extremities: Edema Integumentary: No Cyanosis Medical Decision Making Data Points Result Diagram: 03/01/18203903/01/182039 Item Value Date Time Lactate 5.2 mmol/L *H 03/01/182039 Troponin I 0.062 ng/ml 03/01/182039 B-Type Natriuretic Peptide 614 pg/ml H 03/01/182039 Item Value Date Time Arterial Blood pH 7.18 *L 03/01/182214 Arterial Blood Partial Pressure CO2 77 mmHg *H 03/01/182214 Arterial Blood Partial Pressure O2 68 mmHg 03/01/182214 Arterial Blood HCO3 28 mmol/L H 03/01/182214 Arterial Blood Oxygen Saturation 85 % L 03/01/182214 EKG / Imaging Imaging Chest x-ray reviewed. Assessment and Plan Problems: (1) Acute respiratory failure Assessment & Plan: He was intubated in the emergency department on 03/01/2018. He is receiving propofol for sedation. He is currently on SIMV. A repeat ABG and chest x-ray are ordered for the morning. (2) Bacterial pneumonia Assessment & Plan: He does have a new infiltrate in the left lung and his WBC is increased (on prednisone). He has been started on empiric treatment with Zosyn, vancomycin, and levofloxacin. Blood cultures are pending. (3) Septic shock Assessment & Plan: He does have an elevated lactate and hypotension. He is currently requiring a norepinephrine drip and has completed an initial fluid bolus. He has also been started on stress dose hydrocortisone. A repeat lactate level is pending. (4) Elevated brain natriuretic peptide (BNP) level Assessment & Plan: An echocardiogram has been ordered. (5) Elevated troponin Assessment & Plan: I suspect this is secondary to the strain of sepsis and renal failure, but a troponin series has been ordered. (6) Acute renal failure Assessment & Plan: He has received a fluid bolus. A repeat chemistry panel is ordered for the morning. (7) DM2 (diabetes mellitus, type 2) Assessment & Plan: He is on chronic treatment with metformin, which has been held. We have placed him on sliding scale level #2. Venous Thromboembolism Antithrombotics Is Pt On Any Antithrombotics?: No HUGO MIRZA DO Mar 02, 2018 01:27 <Electronically signed by HUGO MIRZA DO> D/ 6 6 6 JOSE/DULCE CC: The above acute care issues are resolving and/or stable. Patient requires intermediate and/or skilled rehabilitation and is ready for admission to Extended Care. Any change in condition is described below. JOSEPH OLIVO ACID PATROLLER Mar 16, 2018 14:53
--- NOTE | 2018-03-16 15:37 | Medical Nutrition Therapy ---
Nutrition Anthropometrics Weight (Pounds): 411 BMI: 55.8 Morgan Nutrition Score: Morgan Nutrition Risk Score: Dietary Referral Nutrition Risk Factors: Mech. Ventilated Nutrition Risk Comment: Physical Findings Physical Appearance: Morbidly Obese 40+ Skin Appearance Skin Appearance: Edema Edema Location Modifier: Both Edema Location: Lower Extremity Type of Edema: Degree of Edema: 1+ Gastrointestinal Symptoms GI Symtoms: Tube Present: Bowel Sounds: Recent Bowel Pattern: Stool Characteristics: Nutritional Diagnosis Nutritional Risk Acuity 3: Eat/Chew Problem (missing/broken teeth), Morbid Obesity Past Medical History: Hx of T2DM and COPD exacerbation. Nutritional Acuity: 3-Mild Nutrition Diagnosis: Over-weight/Obesity Nutrition Etiology: Inadeq. Food/Cherise Intake Nutrition Problem/Etiology/Sym: Overweight/obesity, as realted to inappropriate food/beverage intake, as evidenced by morbid obesity of 55.8. Diet Type: Diabetic Drug: Diuretics (40mg K depleting Q day) Drug/Nutrition Recommendations: Check Serum K+ Food Dislikes: no straws Diet Comment To RSA: Recommend soft foods, pt has missing and broken teeth. Nutrition Monitoring & Eval RD Patient Assessment Time: [address] Assessment Type: RD Assessment Patient Nutrition Acuity: 3-Mild Follow Up Date: Mar 21, 2018 Nutritional Comment: 03/16. Pt was an in house transfer from Med/Surg floor. Pt is diabetic and has a morbid obese BMI of 55.8. Pt is on diabetic diet consuming 100% of small meal. Pt noted difficulty chewing due to missing and broken teeth. Pt receiving 500mg Metformin BID and 2-10 units Lispro SS SUBQ. Whole BG is slightly elevated, 135. Pt also receiving 40mg potassium depleting diuretic Q day, current potassium levels not available. Noticed increase in BMI, pt is experiencing edema in both lower extremities susan on diuretic, expect weight loss. Will monitor pt diet and labs. ANJUM MURPHY Mar 16, 2018 10:35
[2018-03-16 15:55] VITALS: BP 128/71
--- NOTE | 2018-03-16 17:23 | Medical Nutrition Therapy ---
Nutrition Anthropometrics Weight (Pounds): 411 BMI: 55.8 Morgan Nutrition Score: Morgan Nutrition Risk Score: Dietary Referral Nutrition Risk Factors: Mech. Ventilated Nutrition Risk Comment: Nutrition/Food History Breakfast: skips Lunch: pb&j sandwich with pepsi Dinner: prok chops or chicken and mashed potatoes with pepsi Snacks: cheese and crackers, 4-5 pepsi/day Nutritional Education Nutrition Education Topic: Diabetic Nutrition Learning Barriers: Hx Of Non-Compliance Learning Readiness: Little Interest Teaching Methods: Discussion, Handout Response to Teaching: Verbalize understanding, Reinforcement needed Teaching Recipient: Patient Nutrition Counselin/30. Met with pt to provide education on diabetic diet. Used the plate method, recommending pt make half of his plate vegetables, 1/4 of the plate meat, and the other 1/4 grains. Pt should consider limiting to 2 cups of CHO at each meal. Also encouraged pt to try diet pop rather than regular, as well as drinking crystal light or light lemonade. Also spoke about glycemic repsonse and how many of the foods he currently eats have high glycemic index. Pt did not seem ready to change, had little interest, but verbalized understanding. Encourage pt to make small changes as he can tolerate. MR Nutrition Monitoring & Eval RD Patient Assessment Time: [address] Assessment Type: RD Education Patient Nutrition Acuity: 3-Mild Follow Up Date: Mar 21, 2018 Nutritional Comment: 03/16. Pt was an in house transfer from Med/Surg floor. Pt is diabetic and has a morbid obese BMI of 55.8. Pt is on diabetic diet consuming 100% of small meal. Pt noted difficulty chewing due to missing and broken teeth. Pt receiving 500mg Metformin BID and 2-10 units Lispro SS SUBQ. Whole BG is slightly elevated, 135. Pt also receiving 40mg potassium depleting diuretic Q day, current potassium levels not available. Noticed increase in BMI, pt is experiencing edema in both lower extremities susan on diuretic, expect weight loss. Will monitor pt diet and labs. MR 8/30 Provided education on diabetic diet. ANJUM MURPHY Mar 16, 2018 17:23
[2018-03-17] MEDS: TIOTROPIUM BROM INH 18 MCG/CAP INH SCH (06:12)
[2018-03-17] MEDS: POTASSIUM CHL PWDR 20 MEQ PKT PO SCH ×2 (08:37→20:19)
[2018-03-17] MEDS: guaiFENesin 600 MG TABCR PO SCH ×2 (08:37→20:19)
[2018-03-17] MEDS: PANTOPRAZOLE SOD 40 MG TABEC PO SCH (08:37)
[2018-03-17] MEDS: FUROSEMIDE 40 MG TAB PO SCH (08:37)
[2018-03-17] MEDS: TAMSULOSIN HCL 0.4 MG CAP PO SCH (08:37)
[2018-03-17] MEDS: buPROPion SR 150 MG TABCR PO SCH (08:37)
[2018-03-17] MEDS: metFORMIN HCL 500 MG TAB PO SCH ×2 (08:37→17:01)
[2018-03-17] MEDS: ENOXAPARIN 40 MG/0.4ML SYR SC SCH (08:38)
[2018-03-17 09:00] VITALS: BP 114/78
--- NOTE | 2018-03-17 12:34 | PT ECF NOTE ---
Type of Note: Initial Note Primary Medical Diagnosis: generalized weakness s/p sepsis due to pneumonia/hypoxia/AMS Physical Therapy Evaluation Date: 03/15/2018 SUBJECTIVE: Prior Hospitalization: [facility] Med/Surg 03/01-03/15/2018 Prior Level of Function: Mod I with functional mobility. Prior Living Status: Single level house, Living with family Community Services: No known needs Home Accessibility: One step into home Equipment Owned: Front wheeled walker Medical Complications/Past Medical History: Please see [employer] Psychosocial Support: Pt lives with family Pain Scale (0-10): Previous reports of R foot pain, improved at time of eval. OBJECTIVE: Bed Mobility: Mod A Assistive device: Bed rail, Head of bed elevated Transfers: CGA Assistive Device: Front wheeled walker Gait: CGA x15' and standing rest breaks Assistive device: Front wheeled walker Stairs: not attempted Assistive device: Timed Up and Go (>12 seconds indicated increased risk for falls): unable to tolerate 10 meter walk test (0.6m/second cannot function independently): unable to tolerate ASSESSMENT: Pt presents with decreased strength, activity tolerance, and independence with functional mobility compared to prior level of function. Pt will benefit from skilled PT for strength and functional mobility training in order to increase independence and return to prior level of function. Problem List/Current Limitations: Pain, Decreased activity tolerance, Decreased strength, Decreased ROM, Decreased balance, Generalized weakness, Decreased problem solving, Shortness of breath Short Term Goals: 1. Mod I bed mobility. 2. Mod I transfers from a variety of surfaces. 3. Mod I gait using appropriate assistive device x 50'. 4. Ascend/descend 1 step to simulate curb. Pbx Inspector Goals: Return to prior living arrangements. Patient Goals: Return to prior living arrangements Rehabilitation Prognosis: Good Barriers for Discharge: none identified at this time. PLAN: The patient will benefit from skilled physical therapy services 5 times per week for 2 weeks including: Therapeutic Exercise, Therapeutic Activities, Transfer Training, Gait Training, Stair Training, Manual Therapy, ADL's, Safety Training, Neuromuscular Re-educ., Wound Care, Pt/Caregiver Training, Bed Mobility Thank you for this referral. If you have any questions, concerns, or comments about this report or plan, please contact me at . Anila Kirby, PT, DPT, GCS MTDD
--- NOTE | 2018-03-17 15:03 | Consultant Pharmacy Review ---
Car Hostler Review Medication Review Do All Mecications have a Diag: Yes Comments Regarding the Review Patient is 47 and does not meet Beers list criteria DANIELLE CAM V Mar 17, 2018 15:03
[2018-03-17 16:55] VITALS: BP 111/71
[2018-03-17] MEDS: INSULIN HUM LISPRO 100 UN/ML 3 ML VIAL SUBQ PRN (20:19)
[2018-03-17] MEDS: HYDROCORTISONE 2.5% CR 30GM TB PR SCH (20:50)
[2018-03-18] MEDS: TIOTROPIUM BROM INH 18 MCG/CAP INH SCH (06:14)
[2018-03-18 08:15] VITALS: BP 124/68
[2018-03-18] MEDS: HYDROCORTISONE 2.5% CR 30GM TB PR SCH ×2 (08:33→21:32)
[2018-03-18] MEDS: PANTOPRAZOLE SOD 40 MG TABEC PO SCH (08:34)
[2018-03-18] MEDS: ENOXAPARIN 40 MG/0.4ML SYR SC SCH (08:34)
[2018-03-18] MEDS: guaiFENesin 600 MG TABCR PO SCH ×2 (08:34→21:32)
[2018-03-18] MEDS: metFORMIN HCL 500 MG TAB PO SCH ×2 (08:34→16:16)
[2018-03-18] MEDS: POTASSIUM CHL PWDR 20 MEQ PKT PO SCH ×2 (08:34→21:32)
[2018-03-18] MEDS: FUROSEMIDE 40 MG TAB PO SCH (08:34)
[2018-03-18] MEDS: TAMSULOSIN HCL 0.4 MG CAP PO SCH (08:34)
[2018-03-18] MEDS: buPROPion SR 150 MG TABCR PO SCH (08:34)
[2018-03-18 16:22] VITALS: BP 120/71
[2018-03-18] MEDS: INSULIN HUM LISPRO 100 UN/ML 3 ML VIAL SUBQ PRN (21:33)
[2018-03-19] MEDS: TIOTROPIUM BROM INH 18 MCG/CAP INH SCH (06:02)
[2018-03-19 07:42] VITALS: BP 130/72
[2018-03-19] MEDS: metFORMIN HCL 500 MG TAB PO SCH ×2 (07:58→17:27)
[2018-03-19] MEDS: buPROPion SR 150 MG TABCR PO SCH (08:50)
[2018-03-19] MEDS: guaiFENesin 600 MG TABCR PO SCH ×2 (08:50→20:30)
[2018-03-19] MEDS: TAMSULOSIN HCL 0.4 MG CAP PO SCH (08:50)
[2018-03-19] MEDS: POTASSIUM CHL PWDR 20 MEQ PKT PO SCH ×2 (08:51→20:30)
[2018-03-19] MEDS: PANTOPRAZOLE SOD 40 MG TABEC PO SCH (08:51)
[2018-03-19] MEDS: HYDROCORTISONE 2.5% CR 30GM TB PR SCH ×2 (08:51→20:30)
[2018-03-19] MEDS: ENOXAPARIN 40 MG/0.4ML SYR SC SCH (08:51)
[2018-03-19] MEDS: FUROSEMIDE 40 MG TAB PO SCH (08:51)
[2018-03-19 16:27] VITALS: BP 111/77
[2018-03-19] MEDS: INSULIN HUM LISPRO 100 UN/ML 3 ML VIAL SUBQ PRN (17:29)
[2018-03-20] MEDS: TIOTROPIUM BROM INH 18 MCG/CAP INH SCH (06:08)
[2018-03-20] MEDS: metFORMIN HCL 500 MG TAB PO SCH ×2 (07:48→17:27)
[2018-03-20 07:52] VITALS: BP 109/60
[2018-03-20] MEDS: PANTOPRAZOLE SOD 40 MG TABEC PO SCH (08:20)
[2018-03-20] MEDS: ENOXAPARIN 40 MG/0.4ML SYR SC SCH (08:20)
[2018-03-20] MEDS: FUROSEMIDE 40 MG TAB PO SCH (08:20)
[2018-03-20] MEDS: HYDROCORTISONE 2.5% CR 30GM TB PR SCH ×2 (08:20→20:25)
[2018-03-20] MEDS: TAMSULOSIN HCL 0.4 MG CAP PO SCH (08:20)
[2018-03-20] MEDS: guaiFENesin 600 MG TABCR PO SCH ×2 (08:20→20:23)
[2018-03-20] MEDS: POTASSIUM CHL PWDR 20 MEQ PKT PO SCH ×2 (08:20→20:23)
[2018-03-20] MEDS: buPROPion SR 150 MG TABCR PO SCH (08:20)
[2018-03-20 15:15] VITALS: BP 112/67
[2018-03-21] MEDS: TIOTROPIUM BROM INH 18 MCG/CAP INH SCH (05:38)
[2018-03-21 08:00] VITALS: BP 114/66
[2018-03-21] MEDS: TAMSULOSIN HCL 0.4 MG CAP PO SCH (08:35)
[2018-03-21] MEDS: guaiFENesin 600 MG TABCR PO SCH ×2 (08:35→20:52)
[2018-03-21] MEDS: FUROSEMIDE 40 MG TAB PO SCH (08:35)
[2018-03-21] MEDS: buPROPion SR 150 MG TABCR PO SCH (08:35)
[2018-03-21] MEDS: POTASSIUM CHL PWDR 20 MEQ PKT PO SCH ×2 (08:35→20:52)
[2018-03-21] MEDS: PANTOPRAZOLE SOD 40 MG TABEC PO SCH (08:35)
[2018-03-21] MEDS: metFORMIN HCL 500 MG TAB PO SCH ×2 (08:35→16:46)
[2018-03-21] MEDS: ENOXAPARIN 40 MG/0.4ML SYR SC SCH (08:37)
[2018-03-21] MEDS: HYDROCORTISONE 2.5% CR 30GM TB PR SCH ×2 (09:00→20:51)
--- NOTE | 2018-03-21 13:03 | Medical Nutrition Therapy ---
Nutrition Anthropometrics Weight (Pounds): 389 Weight (Calculated Kilograms): 176.561 BMI: 55.8 Morgan Nutrition Score: Morgan Nutrition Risk Score: Dietary Referral Nutrition Risk Factors: Mech. Ventilated Nutrition Risk Comment: Physical Findings Physical Appearance: Morbidly Obese 40+ Skin Appearance Skin Appearance: Edema Edema Location Modifier: Both Edema Location: Lower Extremity Type of Edema: Degree of Edema: 1+ Gastrointestinal Symptoms GI Symtoms: Tube Present: Bowel Sounds: Recent Bowel Pattern: Stool Characteristics: Nutritional Diagnosis Nutritional Risk Acuity 3: Eat/Chew Problem (missing/broken teeth), Morbid Obesity Past Medical History: Hx of T2DM and COPD exacerbation. Nutritional Acuity: 3-Mild Nutrition Diagnosis: Over-weight/Obesity Nutrition Etiology: Inadeq. Food/Cherise Intake Nutrition Problem/Etiology/Sym: Overweight/obesity, as realted to inappropriate food/beverage intake, as evidenced by morbid obesity of 55.8. Diet Type: Diabetic Drug: Diuretics (40mg K depleting Q day) Drug/Nutrition Recommendations: Check Serum K+ Food Dislikes: no straws Diet Comment To RSA: Recommend soft foods, pt has missing and broken teeth. Nutrition Monitoring & Eval RD Patient Assessment Time: [address] Assessment Type: RD Re-Assessment Patient Nutrition Acuity: 3-Mild Follow Up Date: Mar 28, 2018 Nutritional Comment: 03/16. Pt was an in house transfer from Med/Surg floor. Pt is diabetic and has a morbid obese BMI of 55.8. Pt is on diabetic diet consuming 100% of small meal. Pt noted difficulty chewing due to missing and broken teeth. Pt receiving 500mg Metformin BID and 2-10 units Lispro SS SUBQ. Whole BG is slightly elevated, 135. Pt also receiving 40mg potassium depleting diuretic Q day, current potassium levels not available. Noticed increase in BMI, pt is experiencing edema in both lower extremities susan on diuretic, expect weight loss. Will monitor pt diet and labs. MR 03/16 Provided education on diabetic diet. MR /. Pt cont on diabetic diet , consuming 75-100% of regular sized meals. Cont on perscribed doses of Metformin, Lispro SS insulin, and potassium depleting diuretic. Potassium levels not available. Whole blood glucose cont to be elevated, currently 136. Will cont to monitor pt BG levels. ANJUM MURPHY Mar 21, 2018 09:48
[2018-03-21 16:40] VITALS: BP 103/74
[2018-03-22] MEDS: TIOTROPIUM BROM INH 18 MCG/CAP INH SCH (06:07)
[2018-03-22] MEDS: guaiFENesin 600 MG TABCR PO SCH (08:52)
[2018-03-22] MEDS: POTASSIUM CHL PWDR 20 MEQ PKT PO SCH (08:52)
[2018-03-22] MEDS: metFORMIN HCL 500 MG TAB PO SCH (08:53)
[2018-03-22] MEDS: ENOXAPARIN 40 MG/0.4ML SYR SC SCH (08:53)
[2018-03-22] MEDS: TAMSULOSIN HCL 0.4 MG CAP PO SCH (08:53)
[2018-03-22] MEDS: PANTOPRAZOLE SOD 40 MG TABEC PO SCH (08:53)
[2018-03-22] MEDS: buPROPion SR 150 MG TABCR PO SCH (08:53)
[2018-03-22] MEDS: FUROSEMIDE 40 MG TAB PO SCH (08:53)
[2018-03-22] MEDS: HYDROCORTISONE 2.5% CR 30GM TB PR SCH (09:00)
[2018-03-22 10:37] VITALS: BP 123/68
--- NOTE | 2018-03-22 13:25 | OT ECF NOTE ---
Type of Note: Discharge Note Primary Medical Diagnosis: Generalized weakness s/p sepsis due to pneumonia/hypoxia/AMS Occupational Therapy Evaluation Date: 03/15/18 SUBJECTIVE: Prior Hospitalization: H 03/01/18 thru 03/15/18 Prior Level of Function: Mod (I) ADLs, Mod (I) IADLs. Pt reporting increased difficulty with LB dressing prior to admission. Prior Living Status: Apartment, Living with family Community Services: No known needs Home Accessibility: All needs on one level Tub/shower combination Equipment Owned: Front wheeled walker Medical Complications/Past Medical History: Please refer to EMR Psychosocial Support: Resides with family Pain Scale (0-10): None reported during evaluation. OBJECTIVE: Strength: MMT: Right Left Shoulder Flexion WFL WFL Elbow Flexion WFL WFL Wrist Extension WFL WFL Senior Administrative Associate WFL WFL (5= normal, 4= good, 3= fair, 2= poor, 1= trace) ROM: Both upper extremities, WFL Sensation: Intact, no concerns Functional Transfer: Assistive Device: Front wheeled walker Transfer Ability: Modified Independent ADL: Upper body dressing: Assistive device: None Upper body dressing ability: Independent Lower body dressing: Assistive device: Foot stool Lower body dressing ability: Modified Independent with use of foot stool Toileting: Assistive device: None Toileting ability: Modified Independent Grooming/hygiene: Assistive device: Standing Grooming ability: Independent Bathing: Assistive device: Encouraged consideration of obtaining an extended tub transfer bench. Information provided for were to obtain. Pt verbalized understanding. Bathing ability: SBA for stepping over bathtub. Standardized Assessment: Joyce Index of Activities of Daily Livin/20 upon initial evaluation (03/15/18). 2020 upon discharge (03/21/18). ASSESSMENT: "Ruddy" presented to [facility] with generalized weakness s/p recent hospital admission. At [facility], he was Mod (I) for ADLs, ambulating with a RW. He has met all skilled OT goals and reports no further questions/concerns at this time. Problem List/Current Limitations: Decreased activity tolerance Decreased strength Decreased ROM Decreased balance Generalized weakness Short Term Goals: 1) Pt will be SBA UB/LB dressing. GOAL MET 2) Pt will be SBA grooming/hygiene. GOAL MET 3) Pt will be SBA toilet task. GOAL MET 4) Pt will be Min A shower task. GOAL MET 5) Pt Joyce Index of ADLs score will improve by 2 points. GOAL MET Shelter Goals: Return home with HH service Patient Goals: "Walk to bathroom" "Get home" Rehabilitation Prognosis: Good Barriers to Discharge: Medical hx PLAN: The patient will discharge home with PT and assist from family. Thank you for this referral. If you have any questions, concerns, or comments about this report or plan, please contact me at . Arely Fong MS, OTR/L Occupational Therapist ALIZA
--- NOTE | 2018-03-22 14:08 | Hospitalist Progress Note ---
Physical Exam Vital Signs Date Time Temp Pulse Resp B/P (MAP) Pulse Ox O2 Delivery O2 Flow Rate FiO2 03/22/18 10:37 97.8 20 123/68 (86) 90 Nasal Cannula 2.0 03/21/18 16:40 90 Intake and Output 03/22/18 06:59 Intake Total 550 ml Balance 550 ml Intake Oral 550 ml # Voids 3 # Bowel Movements 1 Assessment and Plan Problems: (1) Weakness Status: Acute Assessment & Plan: Secondary to prolonged ventilator support and illness and exacerbated by obesity. He improved with therapy while on the medical floor and was transferred to [facility] ECF unit for further rehabilitation. He continued to improve. (2) Acute respiratory failure Status: Acute Assessment & Plan: He was intubated in the emergency department on 03/01/2018. He was extubated 03/07/2018. He was then placed on BiPAP. CO2 levels improved with increased use of BiPAP. Chronic hypercapnia secondary to obesity hypoventilation syndrome was suspected. His baseline O2 requirement is 4 liters. He returned to his baseline oxygen use. Due to the severity of patient's disease, it was felt he would require Trilogy in gama of BiPAP to prevent further ER visits and possible re-hospitalization/ intubation. Unfortunately, the patient began refusing BiPAP when transferred to ECF. He is agreeable to continuing oxygen at home. (3) Bacterial pneumonia Status: Resolved Assessment & Plan: He had bibasilar infiltrates on CT scan and his WBC was increased (on prednisone). He was started on empiric treatment with IV Zosyn, vancomycin, and levofloxacin (he had been on two courses of antibiotics recently for cellulitis). Zosyn was then switched to Primaxin. He became afebrile and cultures were negative. Antibiotics were discontinued after an 8 day course. (4) Septic shock Status: Resolved Assessment & Plan: He presented with an elevated lactate and hypotension. He did require a norepinephrine infusion initially. He also received stress dose hydrocortisone, which was later discontinued. (5) Acute renal failure Status: Resolved Assessment & Plan: Improved/resolved with IV fluids. (6) DM2 (diabetes mellitus, type 2) Assessment & Plan: He had been on chronic treatment with metformin, which was restarted. He was also placed on sliding scale level #2. He did require intermittent coverage and will need his medications adjusted as an outpatient. (7) COPD (chronic obstructive pulmonary disease) Status: Chronic Assessment & Plan: He is on chronic treatment with Albuterol inhaler and nebulizers. It was felt he would require Trilogy in gama of BiPAP to prevent further hospitalizations, due to the severity of his respiratory status. Unfortunately, the patient refuses BiPAP at this time. (8) Elevated liver enzymes Status: Acute Assessment & Plan: Etiology unclear, but likely related to acute illness/hepatosteatosis. Improved. (9) Depression Status: Acute Assessment & Plan: Dr. Lee evaluated the patient and recommended starting him on Wellbutrin XR 150mg daily. The patient did well on this with improvement in his mood. Time Spent on Plan of Care: < 30 min MARTINA MCKENNA MD Mar 22, 2018 14:08
[2018-03-22] MEDS ORDERED: BUPR-136 PO (14:12)
[2018-03-22] MEDS ORDERED: TAMS0.4C70 PO (14:12)
[2018-03-22] MEDS ORDERED: GUAI600T57 PO (14:12)
[2018-03-22] MEDS ORDERED: PANT40TA65 PO (14:12)
[2018-03-22] MEDS ORDERED: DOCU-202 PO (14:12)
[2018-03-22] MEDS ORDERED: POTA20PA25 PO (14:14)
--- NOTE | 2018-03-22 14:17 | Hospitalist Depart ---
Discharge Summary Reason for Hosp/Final Diag: (1) Weakness Status: Acute Hospital Course & Plan: Secondary to prolonged ventilator support and illness and exacerbated by obesity. He improved with therapy while on the medical floor and [facility] He continued to improve. (2) Acute respiratory failure Status: Acute Hospital Course & Plan: He was intubated in the emergency department on 03/01/2018. He was extubated 03/07/2018. He was then placed on BiPAP. CO2 levels improved with increased use of BiPAP. Chronic hypercapnia secondary to obesity hypoventilation syndrome was suspected. His baseline O2 requirement is 4 liters. He returned to his baseline oxygen use. Due to the severity of claire mcleod's disease, it was felt he would require Trilogy in gama of BiPAP to prevent further ER visits and possible re-hospitalization/ intubation. Unfortunately, the patient began refusing BiPAP when transferred to [facility]. He is agreeable to continuing oxygen at home. (3) Bacterial pneumonia Status: Resolved Hospital Course & Plan: He had bibasilar infiltrates on CT scan and his WBC was increased (on prednisone). He was started on empiric treatment with IV Zosyn, vancomycin, and levofloxacin (he had been on two courses of antibiotics recently for cellulitis). Zosyn was then switched to Primaxin. He became afebrile and cultures were negative. Antibiotics were discontinued after an 8 day course. (4) Septic shock Status: Resolved Hospital Course & Plan: He presented with an elevated lactate and hypotension. He did require a norepinephrine infusion initially. He also received stress dose hydrocortisone, which was later discontinued. (5) Acute renal failure Status: Resolved Hospital Course & Plan: Improved/resolved with IV fluids. (6) DM2 (diabetes mellitus, type 2) Hospital Course & Plan: He had been on chronic treatment with metformin, which was restarted. He was also placed on sliding scale level #2. He did require intermittent coverage and will need his medications adjusted as an outpatient. (7) COPD (chronic obstructive pulmonary disease) Status: Chronic Hospital Course & Plan: He is on chronic treatment with Albuterol inhaler and nebulizers. It was felt he would require Trilogy in gama of BiPAP to prevent further hospitalizations, due to the severity of his respiratory status. Unfortu nately, the patient refuses BiPAP at this time. (8) Elevated liver enzymes Status: Acute Hospital Course & Plan: Etiology unclear, but likely related to acute illness/hepatosteatosis. Improved. (9) Depression Status: Acute Hospital Course & Plan: Dr. Lee evaluated the patient and recommended starting him on Wellbutrin XR 150mg daily. The patient did well on this with improvement in his mood. Departure Weight (Pounds): 389 Weight (Ounces): 4.0 Condition: Improved Discharge: Home, Home Health PT/OT Follow Up For: PT For Strengthening Home Health RN Follow Up For: Nursing Assessment Home Health FURNITURE BUILDER Follow Up For: ADL Assistance Time Spent: < 30 min Discharge Instructions Home Meds Reported Medications Oxygen (OXYGEN) Inha, 4 L INH, L 03/08/18 Potassium Chloride (POTASSIUM CHLORIDE) 10 Meq Tab.er.prt, 10 MEQ PO QDAY 03/08/18 Furosemide (FUROSEMIDE) 40 Mg Tablet, 1 TAB PO QDAY, TAB 03/08/18 Metformin Hcl (METFORMIN HCL) 500 Mg Tablet, 1 TAB PO BID, TAB 03/06/18 Tiotropium [place] (SPIRIVA) 18 Mcg/Cap Inh, 18 MCG INH QDAY, INH 02/17/18 Albuterol Sulfate 0.083% (ALBUTEROL SULFATE 0.083%) 2.5 Mg/3 Ml Vial.neb, 2.5 MG INH PRN, INH 02/17/18 Albuterol Sulfate 90 Mcg/Act (PROAIR HFA 90 MCG/ACT) 8.5 Gm Hfa.aer.ad, 2 PUFF IH Q4-6H PRN for SHORTNESS OF BREATH, INHALER 02/17/18 Follow up Referrals: Family Practice - In One Week with UBALDO Corona Diet: Diabetic Activity: As Tolerated Copies to: EMANUEL MELGAR ; Venous Thromboembolism Antithrombotics Is Pt On Any Antithrombotics?: Yes (Lovenox. DC'd at discharge.) [id number] Certification Face to Face Home Health Certification Institutional Provider conducted the [id number] encounter. Electronic Undersigning Physician Certifies Home Health. I certify that the patient has been under my care and that I had a [id number] encounter that meets the physician [id number] encounter requirements with this patient. This patient is home-bound due to safety issues and continues to require assistance with ADL's. I certify that based on my findings, that Nursing, Aides and the following Home Health services are medically necessary: PT/OT Medical Necessity: Nursing, Rehab Date Face to Face Conducted: Mar 22, 2018 MARTINA MCKENNA MD Mar 22, 2018 14:17
--- NOTE | 2018-03-22 15:10 | PT ECF NOTE ---
Type of Note: Discharge Summary Primary Medical Diagnosis: generalized weakness s/p sepsis due to pneumonia/hypoxia/AMS Physical Therapy Evaluation Date: 03/15/2018 Physical Therapy Discharge Date: 03/21/2018 SUBJECTIVE: Prior Hospitalization: [facility] Med/Surg 03/01-03/15/2018 Prior Level of Function: Mod I with functional mobility. Prior Living Status: Single level house, Living with family Community Services: No known needs Home Accessibility: One step into home Equipment Owned: Front wheeled walker Medical Complications/Past Medical History: Please see No[employer] Psychosocial Support: Pt lives with family Pain Scale (0-10): No pain reported OBJECTIVE: Bed Mobility: Not further practiced as the patient plans to only sleep in recliner upon d/c home Transfers: Natali with RW Gait: Natali/SBA x220' with RW Stairs: SBA x 1 step ASSESSMENT: The patient has made good progress towards functional goals and is safe to d/c home from a mobility stand point when medically appropriate. Rec [facility] services and use of RW upon d/c. Problem List/Current Limitations: Decreased activity tolerance, Decreased strength, Decreased ROM, Decreased balance, Generalized weakness, Decreased problem solving, Shortness of breath Short Term Goals: 1. Mod I bed mobility. (discontinued) 2. Mod I transfers from a variety of surfaces. (met) 3. Mod I gait using appropriate assistive device x 50'. (met) 4. Ascend/descend 1 step to simulate curb. (met) Correction Goals: Return to prior living arrangements. (met) Patient Goals: Return to prior living arrangements (met) PLAN: The patient will discharge home with assistance from family and [facility] services, rec use of RW upon d/c. Thank you for this referral. If you have any questions, concerns, or comments about this report or plan, please contact me at . Buffy Tinajero, PT, DPT CLOTILDED
== END 2018-03-22 15:00 | disposition home health service (06) | DRG 948 ==
LOC: SWB 12:24
PROVIDERS: ADMIT Internal Medicine; ATTEND Internal Medicine
PROC: 5A09357 Assistance with Respiratory Ventilation, Less than 24 Consecutive Hours, Continuous Positive Airway Pressure (ICD-10-PCS; principal; 2018-03-15)
DX: R53.1 Weakness (principal); Z68.43 Body mass index [BMI] 50.0-59.9, adult; E11.9 Type 2 diabetes mellitus without complications; J44.9 Chronic obstructive pulmonary disease, unspecified; K76.89 Other specified diseases of liver; F32.9 Major depressive disorder, single episode, unspecified; E66.9 Obesity, unspecified; Z90.49 Acquired absence of other specified parts of digestive tract; Z79.84 Long term (current) use of oral hypoglycemic drugs
CPT/HCPCS: 36416; 82948; 94660; 97162; 97166; J1650; J3535

== ENCOUNTER 2018-03-30 14:43 | Emergency (ER) | payer MEDICAID ==
[2018-03-02 12:26] VITALS: Wt 176.6 kg
[~2018-03-30 14:43] MED LIST changes: +ALLO-119 PO; +BUPR-136 PO; +COLC0.6T2 PO; +DOCU-202 PO; +GUAI600T57 PO; -METF-411 PO; -METF-421 PO; +METF-450 PO; +METF-452 PO; +PANT40TA65 PO; +POTA20PA25 PO; +TAMS0.4C70 PO
--- NOTE | 2018-03-30 14:54 | ER Report ---
History and Physical Time Seen By MD: 14:54 HPI/ROS CHIEF COMPLAINT: Cough HISTORY OF PRESENT ILLNESS: 47-year-old male patient presents to emergency room with complaint of cough, sinus congestion. Patient states this been going on for the past 3 days. Patient states that he was recently discharged from hospital with pneumonia. That he has had a worsening cough over last several days. He denies having any fevers or chills. She states have a lot of sinus congestion. He states that he does have family members who have been ill, his 's g randchildren. He states that he has taken any medication for this. He denies any nausea, vomiting or diarrhea. He denies having any chest pain. REVIEW OF SYSTEMS: Respiratory: As noted above Cardiovascular: No chest pain, no palpitations. Gastrointestinal: No vomiting, no abdominal pain. Musculoskeletal: No back pain. Allergies: Coded Allergies: shellfish derived (Verified Allergy, Severe, THROAT SWELLING, 03/30/18) montelukast (Verified Allergy, Intermediate, SINUS INFECTIONS, 03/30/18) Home Meds Active Scripts Promethazine HCl/Codeine (Prometh-Codein 6.25-10 mg/5 ml) 5 Ml Syrup, 1 TSP PO QHS PRN for COUGH, #120 ML Prov:OBED LION 03/30/18 Metformin Hcl (METFORMIN HCL) 500 Mg Tablet, 2 TAB PO BID, #120 TAB 5 Refills Prov:CARLTON ISSA MD 03/29/18 Colchicine (COLCRYS) 0.6 Mg Tablet, 0.6 MG PO BID PRN for pain, #30 TAB 2 Refills Take 1 tablet twice a day for 2 weeks and then as needed for pain Prov:CARLTON ISSA MD 03/28/18 Allopurinol (ZYLOPRIM) 300 Mg Tablet, 300 MG PO QDAY, #30 TAB 3 Refills Prov:CARLTON ISSA MD 03/28/18 Potassium Chloride (POTASSIUM CHLORIDE) 20 Meq Packet, 20 MEQ PO BID, #60 PACKET 4 Refills Prov:MARTINA MCKENNA MD 03/22/18 Tamsulosin Hcl (TAMSULOSIN HCL) 0.4 Mg Cap.er.24h, 0.4 MG PO QDAY, #30 CAP 4 Refills Prov:AMRTINA MCKENNA MD 03/22/18 Pantoprazole Sodium (PANTOPRAZOLE SODIUM) 40 Mg Tablet.dr, 40 MG PO QDAY, #30 TAB 4 Refills Prov:MARTINA MCKENNA MD 03/22/18 Guaifenesin (MUCINEX) 600 Mg Tablet.er, 600 MG PO BID, #60 TAB 4 Refills Prov:MARTINA MCKENNA MD 03/22/18 Bupropion Hcl (BUPROPION HCL SR) 150 Mg Tablet.er, 150 MG PO QDAY, #30 TAB 4 Refills Prov:MARTINA MCKENNA MD 03/22/18 Docusate Sodium (DOCUSATE SODIUM) 100 Mg Capsule, 100 MG PO BID PRN for CONSTIPATION, #60 CAPSULE 4 Refills Prov:MARTINA MCKENNA MD 03/22/18 Reported Medications Oxygen (OXYGEN) Inha, 4 L INH, L 03/08/18 Furosemide (FUROSEMIDE) 40 Mg Tablet, 1 TAB PO BID, TAB 03/08/18 Tiotropium [place] (SPIRIVA) 18 Mcg/Cap Inh, 18 MCG INH QDAY, INH 02/17/18 Albuterol Sulfate 0.083% (ALBUTEROL SULFATE 0.083%) 2.5 Mg/3 Ml Vial.neb, 2.5 MG INH PRN, INH 02/17/18 Albuterol Sulfate 90 Mcg/Act (PROAIR HFA 90 MCG/ACT) 8.5 Gm Hfa.aer.ad, 2 PUFF IH Q4-6H PRN for SHORTNESS OF BREATH, INHALER 02/17/18 Past Medical/Surgical History Patient has a past medical history of diabetes, suicide attempt, COPD, varicose veins. Patient has a past medical history of cyst removed from neck, and vein stripping in left leg, cholecystectomy. Reviewed Nurses Notes: Yes Hx Smoking: Yes Smoking Status: Former Smoker Constitutional Vital Sign - Last 24 Hours 03/30/18 03/30/18 03/30/18 03/30/18 14:51 14:51 15:20 15:20 Temp 98.3 Pulse 97 101 Resp 24 16 B/P (MAP) 115/75 Pulse Ox 92 92 O2 Delivery Nasal Cannula Nasal Cannula O2 Flow Rate 3.0 3.0 03/30/18 17:52 Pulse 94 Resp 16 B/P (MAP) 117/84 (95) Pulse Ox 92 O2 Delivery Nasal Cannula Physical Exam General Appearance: The patient is alert, has no immediate need for airway protection and no current signs of toxicity. Respiratory: Chest is non tender, lungs are clear to auscultation. Cardiac: regular rate and rhythm Gastrointestinal: Abdomen is soft and non tender, no masses, bowel sounds normal. Musculoskeletal: Neck: Neck is supple and non tender. Extremities have full range of motion and are non tender. Skin: No rashes or lesions. DIFFERENTIAL DIAGNOSIS: After history and physical exam differential diagnosis was considered for pneumonia, upper respiratory infection, Medical Decision Making Data Points Result Diagram: 03/30/18 1525 03/30/18 1525 Laboratory Hematology Test 03/30/18 15:25 Red Blood Count 5.05 M/uL (4.00-5.60) Mean Corpuscular Volume 81.2 fL (80.0-96.0) Mean Corpuscular Hemoglobin 27.1 pg (26.0-33.0) Mean Corpuscular Hemoglobin Concent 33.4 g/dL (32.0-36.0) Red Cell Distribution Width 17.0 % (11.5-14.5) Mean Platelet Volume 8.0 fL (7.2-11.1) Neutrophils (%) (Auto) 77.7 % (39.4-72.5) Lymphocytes (%) (Auto) 10.4 % (17.6-49.6) Monocytes (%) (Auto) 7.4 % (4.1-12.4) Eosinophils (%) (Auto) 4.0 % (0.4-6.7) Basophils (%) (Auto) 0.5 % (0.3-1.4) Nucleated RBC Relative Count (auto) 0.2 /100WBC Neutrophils # (Auto) 8.5 K/uL (2.0-7.4) Lymphocytes # (Auto) 1.1 K/uL (1.3-3.6) Monocytes # (Auto) 0.8 K/uL (0.3-1.0) Eosinophils # (Auto) 0.4 K/uL (0.0-0.5) Basophils # (Auto) 0.1 K/uL (0.0-0.1) Nucleated RBC Absolute Count (auto) 0.02 K/uL Sodium Level 141 mmol/L (137-145) Potassium Level 3.2 mmol/L (3.5-5.0) Chloride Level 98 mmol/L (98-107) Carbon Dioxide Level 35 mmol/L (22-30) Blood Urea Nitrogen 10 mg/dl (9-21) Creatinine 1.20 mg/dl (0.66-1.25) Glomerular Filtration Rate Calc > 60.0 Random Glucose 134 mg/dl (75-110) Calcium Level 8.9 mg/dl (8.4-10.2) Total Bilirubin 0.7 mg/dl (0.2-1.3) Aspartate Amino Transf (AST/SGOT) 52 U/L (0-35) Alanine Aminotransferase (ALT/SGPT) 55 U/L (0-56) Alkaline Phosphatase 110 U/L (0-126) Total Protein 8.2 g/dl (6.3-8.2) Albumin 4.0 g/dl (3.5-5.0) Chemistry Test 03/30/18 15:25 White Blood Count 11.0 k/uL (4.5-11.0) Red Blood Count 5.05 M/uL (4.00-5.60) Hemoglobin 13.7 g/dL (14.0-18.0) Hematocrit 41.0 % (42.0-52.0) Mean Corpuscular Volume 81.2 fL (80.0-96.0) Mean Corpuscular Hemoglobin 27.1 pg (26.0-33.0) Mean Corpuscular Hemoglobin Concent 33.4 g/dL (32.0-36.0) Red Cell Distribution Width 17.0 % (11.5-14.5) Platelet Count 385 K/uL (150-450) Mean Platelet Volume 8.0 fL (7.2-11.1) Neutrophils (%) (Auto) 77.7 % (39.4-72.5) Lymphocytes (%) (Auto) 10.4 % (17.6-49.6) Monocytes (%) (Auto) 7.4 % (4.1-12.4) Eosinophils (%) (Auto) 4.0 % (0.4-6.7) Basophils (%) (Auto) 0.5 % (0.3-1.4) Nucleated RBC Relative Count (auto) 0.2 /100WBC Neutrophils # (Auto) 8.5 K/uL (2.0-7.4) Lymphocytes # (Auto) 1.1 K/uL (1.3-3.6) Monocytes # (Auto) 0.8 K/uL (0.3-1.0) Eosinophils # (Auto) 0.4 K/uL (0.0-0.5) Basophils # (Auto) 0.1 K/uL (0.0-0.1) Nucleated RBC Absolute Count (auto) 0.02 K/uL Glomerular Filtration Rate Calc > 60.0 Calcium Level 8.9 mg/dl (8.4-10.2) Total Bilirubin 0.7 mg/dl (0.2-1.3) Aspartate Amino Transf (AST/SGOT) 52 U/L (0-35) Alanine Aminotransferase (ALT/SGPT) 55 U/L (0-56) Alkaline Phosphatase 110 U/L (0-126) Total Protein 8.2 g/dl (6.3-8.2) Albumin 4.0 g/dl (3.5-5.0) EKG/Imaging Imaging Technique: CHEST PA AND LAT HISTORY: RESP DISTRESS COMPARISON: Chest radiographs March 28, 2018 Findings: A low degree of inspiration is again noted. An unchanged granuloma overlies the left upper lobe. No pleural effusion or pneumothorax. The cardiomediastinal silhouette is unchanged. Impression: 1. No acute cardiopulmonary process. Report Dictated By: Edgardo Gallardo DO at 03/30/2018 3:49 PM Report E-Signed By: Edgardo Gallardo DO at 03/30/2018 3:50 PM ED Course/Re-evaluation ED Course Patient was admitted to exam room, history and physical were obtained. Differential diagnoses were considered. On examination lungs are clear, heart is regular, abdomen soft nontender. Patient had no cervical lymphadenopathy, patient had no pain to palpation. Due to patient having stepgrandchildren have been ill I believe that is likely the underlying cause. A chest x-ray was done which was negative. I did check a CBC, CMP and both of which were unremarkable. I discussed the findings with the patient. We will go ahead and discharge him home at this time. Patient requests something to help with the cough and was given a prescription for promethazine with codeine cough syrup. Patient is follow-up with his primary care provider in the next week. He is return to the emergency room if condition worsens. Patient verbalized understanding and agreement with plan. Decision to Disposition Date: Mar 30, 2018 Decision to Disposition Time: 16:33 Depart Departure Latest Vital Signs Vital Signs Date Time Temp Pulse Resp B/P (MAP) Pulse Ox O2 Delivery O2 Flow Rate FiO2 03/30/18 17:52 94 16 117/84 (95) 92 Nasal Cannula 03/30/18 15:20 3.0 03/30/18 14:51 98.3 Impression: Primary Impression: Upper respiratory infection Condition: Improved Disposition: HOME OR SELF-CARE Referrals: CARLTON ISSA MD (PCP) New Scripts Promethazine HCl/Codeine (Prometh-Codein 6.25-10 mg/5 ml) 5 Ml Syrup 1 TSP PO QHS PRN for COUGH, #120 ML Prov: OBED LION 03/30/18 Patient Instructions: Upper Respiratory Infection (ED) Additional Instructions: Increase fluid intake. Get plenty of rest. Limit activity by how you are feeling. Diet as tolerated. Continue with exercise. Take the cough syrup at night time to help with sleep. Return to the ER if condition worsens; fevers, worsening cough, shortness of breath. Follow up with your primary care provider in the next week. Problem Qualifiers Primary Impression: Upper respiratory infection URI type: unspecified viral URI Qualified Codes: J06.9 - Acute upper respiratory infection, unspecified OBED LION Mar 30, 2018 14:54
[2018-03-30] MEDS ORDERED: ALBUTEROL/IPRATROPIUM 3 ML NEB NEB ONE (15:15)
[2018-03-30 15:38] LABS: PLATELET COUNT, AUTOMATED 385 K/uL (150-450)
--- NOTE | 2018-03-30 15:55 | RADIOLOGY IMAGING REPORT ---
FACILITY: [facility] PATIENT NAME: Neo Diaz : 1970 MR: [id number] V: [id number] EXAM DATE: ORDERING PHYSICIAN: OBED LION TECHNOLOGIST: Location: [facility] Patient: Neo Diaz : 1970 Visit/Account:[id number] Date of Sevice: 03/30/2018 Technique: CHEST PA AND LAT HISTORY: RESP DISTRESS COMPARISON: Chest radiographs March 28, 2018 Findings: A low degree of inspiration is again noted. An unchanged granuloma overlies the left upper lobe. No pleural effusion or pneumothorax. The cardiomediastinal silhouette is unchanged. Impression: 1. No acute cardiopulmonary process. Report Dictated By: Edgardo Gallardo DO at 03/30/2018 3:49 PM Report E-Signed By: Edgardo Gallardo DO at 03/30/2018 3:50 PM WSN:[id number]
[2018-03-30] MEDS ORDERED: PROM5SYR PO (16:19)
[2018-03-30 17:52] VITALS: BP 117/84
== END 2018-03-30 16:40 | disposition home or self-care (01) ==
LOC: ER 14:55
DX: J06.9 Acute upper respiratory infection, unspecified (principal)
CPT/HCPCS: 71046; 85025; 94640; 99283; J7620; 82040; 82247; 82310; 82374; 82435; 82565; 82947; 84075; 84132; 84155; 84295; 84450; 84460; 84520

== ENCOUNTER 2018-04-18 17:49 | Emergency (ER) | payer MEDICAID ==
[2018-03-02 12:26] VITALS: Wt 172.4 kg
[~2018-04-18 17:49] MED LIST changes: +ARFO15VI IH; +BENZ100C4 PO; +BUDE0.5A6 IH; +FLU60SYR36 IM; +METXR500 PO; +PROM5SYR PO
--- NOTE | 2018-04-18 18:22 | ER Report ---
History and Physical Time Seen By MD: 18:22 Hx. of Stated Complaint: chest congestion and sore throat HPI/ROS CHIEF COMPLAINT: sore throat and congestion HISTORY OF PRESENT ILLNESS: This is a 47 year old male. He has had 2 days of sore throat and congestion. No cough or production. He was released from the hospital 3 weeks ago and finished his course of antibiotics for pneumonia. Has had some nausea and some diarrhea. Having subjective fevers/chills. He is on chronic oxygen treatment with nasal canula. He is a little short of breath with this. He has no chest pain. Chronic edema is unchanged. REVIEW OF SYSTEMS: As above. Allergies: Coded Allergies: shellfish derived (Verified Allergy, Severe, THROAT SWELLING, 04/18/18) montelukast (Verified Allergy, Intermediate, SINUS INFECTIONS, 04/18/18) Home Meds Active Scripts Guaifenesin/Codeine (GUAIFENESIN-CODEINE SYRUP) 5 Ml Syrp, 5 ML PO Q6H PRN for COUGH, #120 ML 0 Refills Prov:MAUREEN VILLAFUERTE MD 04/18/18 Benzonatate 100 Mg Cap (TESSALON PERLE 100 MG CAP) 100 Mg Capsule, 100 MG PO TID PRN for cough, #30 CAP 1 Refill Prov:CARLTON ISSA MD 04/11/18 Metformin Hcl (METFORMIN HCL ER) 500 Mg Tabcr, 2 TAB PO BID, #120 TAB 6 Refills Prov:CARLTON ISSA MD 04/11/18 Budesonide (BUDESONIDE) 0.5 Mg/2 Ml Ampul.neb, 0.5 MG IH BID, #60 ML 6 Refills Prov:CARLTON ISSA MD 04/11/18 Arformoterol Tartrate (BROVANA) 15 Mcg/2 Ml Vial.neb, 15 MCG IH BID, #60 INFUS.SET 6 Refills Prov:CARLTON ISSA MD 04/11/18 Furosemide (FUROSEMIDE) 40 Mg Tablet, 1 TAB PO BID, #60 TAB 5 Refills Prov:CARLTON ISSA MD 04/11/18 Colchicine (COLCRYS) 0.6 Mg Tablet, 0.6 MG PO BID PRN for pain, #30 TAB 2 Refills Take 1 tablet twice a day for 2 weeks and then as needed for pain Prov:CARLTON ISSA MD 03/28/18 Allopurinol (ZYLOPRIM) 300 Mg Tablet, 300 MG PO QDAY, #30 TAB 3 Refills Prov:CARLTON ISSA MD 03/28/18 Potassium Chloride (POTASSIUM CHLORIDE) 20 Meq Packet, 20 MEQ PO BID, #60 PACKET 4 Refills Prov:MARTINA MCKENNA MD 03/22/18 Tamsulosin Hcl (TAMSULOSIN HCL) 0.4 Mg Cap.er.24h, 0.4 MG PO QDAY, #30 CAP 4 Refills Prov:MARTINA MCKENNA MD 03/22/18 Pantoprazole Sodium (PANTOPRAZOLE SODIUM) 40 Mg Tablet.dr, 40 MG PO QDAY, #30 TAB 4 Refills Prov:MARTINA MCKENNA MD 03/22/18 Guaifenesin (MUCINEX) 600 Mg Tablet.er, 600 MG PO BID, #60 TAB 4 Refills Prov:MARTINA MCKENNA MD 03/22/18 Bupropion Hcl (BUPROPION HCL SR) 150 Mg Tablet.er, 150 MG PO QDAY, #30 TAB 4 Refills Prov:MARTINA MCKENNA MD 03/22/18 Docusate Sodium (DOCUSATE SODIUM) 100 Mg Capsule, 100 MG PO BID PRN for CONSTIP ATION, #60 CAPSULE 4 Refills Prov:MARTINA MCKENNA MD 03/22/18 Reported Medications Oxygen (OXYGEN) Inha, 4 L INH, L 03/08/18 Tiotropium [place] (SPIRIVA) 18 Mcg/Cap Inh, 18 MCG INH QDAY, INH 02/17/18 Albuterol Sulfate 0.083% (ALBUTEROL SULFATE 0.083%) 2.5 Mg/3 Ml Vial.neb, 2.5 MG INH PRN, INH 02/17/18 Albuterol Sulfate 90 Mcg/Act (PROAIR HFA 90 MCG/ACT) 8.5 Gm Hfa.aer.ad, 2 PUFF IH Q4-6H PRN for SHORTNESS OF BREATH, INHALER 02/17/18 Reviewed Nurses Notes: Yes Hx Smoking: Yes Smoking Status: Former Smoker Hx Substance Use Disorder: No Constitutional Vital Sign - Last 24 Hours 04/18/18 04/18/18 04/18/18 04/18/18 17:56 18:16 18:19 18:49 Temp 98.9 Pulse 99 102 93 Resp 16 B/P (MAP) 119/76 116/73 (87) Pulse Ox 94 90 93 O2 Delivery Nasal Cannula Nasal Cannula Nasal Cannula O2 Flow Rate 2 2 04/18/18 04/18/18 04/18/18 04/18/18 19:00 19:19 19:24 19:54 Pulse 95 93 90 B/P (MAP) 102/42 (62) Pulse Ox 91 94 96 O2 Delivery Nasal Cannula Nasal Cannula Nasal Cannula O2 Flow Rate 2 2 2 04/18/18 20:00 B/P (MAP) 90/65 (73) Physical Exam General Appearance: The patient is alert. No acute distress. Eyes: Pupils are equal, round. No pallor, injection or icterus. ENT: Mucous membranes are moist. Normal oral mucosa. Posterior oropharynx with erythema, has some mild exudates. Erythematous nasal mucosa. Has some anterior cervical lymphadenopathy. Neck: Supple and non tender. Respiratory: Lungs are clear to auscultation. Cardiovascular: Regular rate and rhythm. No murmurs, gallops or rubs. Normal capillary refill. Chronic edema, bilateral. Gastrointestinal: Abdomen is soft and non tender. Nondistended. Normal active bowel sounds. Neurological: Alert and oriented x3. Skin: Warm and dry. DIFFERENTIAL DIAGNOSIS: After history and physical exam, differential diagnosis was considered for sore throat and congestion, will check influenza, strep and chest x-ray. Most likely viral syndrome. Medical Decision Making Data Points Laboratory Hematology Test 04/18/18 18:32 Influenza Virus Type A (PCR) Negative (NEGATIVE) Influenza Virus Type B (PCR) Negative (NEGATIVE) Group A Streptococcus Screen Negative (NEGATIVE) Chemistry Test 04/18/18 18:32 Influenza Virus Type A (PCR) Negative (NEGATIVE) Influenza Virus Type B (PCR) Negative (NEGATIVE) Group A Streptococcus Screen Negative (NEGATIVE) EKG/Imaging Imaging 2 VIEWS CHEST INDICATION: Congestion and sore throat. COMPARISON: 03/30/2018. FINDINGS: The lateral aspect the right lung is not imaged on the frontal view. Cardiomediastinal silhouette and pulmonary vessels within normal limits. There is no focal infiltrate or lobar consolidation. There is no pneumothorax or pleural effusion. Stable, calcified granuloma seen in the left upper lobe. No other nodules. Upper abdomen is unremarkable. No acute bony abnormality. IMPRESSION: 1. No acute cardiopulmonary process. Report Dictated By: Jim Sutton at 04/18/2018 7:31 PM ED Course/Re-evaluation ED Course Influenza negative. Strep negative. Chest x-ray negative. Discussed with the patient this appears to be viral upper respiratory infection. We did provide some guaifenesin with codeine to help with cough and congestion. Decision to Disposition Date: Apr 18, 2018 Decision to Disposition Time: 19:52 Depart Departure Latest Vital Signs Vital Signs Date Time Temp Pulse Resp B/P (MAP) Pulse Ox O2 Delivery O2 Flow Rate FiO2 04/18/18 20:00 90/65 (73) 04/18/18 19:54 90 96 Nasal Cannula 2 04/18/18 17:56 98.9 16 Impression: Primary Impression: Acute viral syndrome Condition: Improved Disposition: HOME OR SELF-CARE Referrals: CARLTON ISSA MD (PCP) New Scripts Guaifenesin/Codeine (GUAIFENESIN-CODEINE SYRUP) 5 Ml Syrp 5 ML PO Q6H PRN for COUGH, #120 ML 0 Refills Prov: MAUREEN VILLAFUERTE MD 04/18/18 Patient Instructions: Viral Syndrome (ED) Additional Instructions: Rest and increase fluid intake over the next few days. Guaifenesin with Codeine cough syrup, 1 teaspoon every 6 hours as needed for cough. You can use Tylenol or Ibuprofen as needed for pain. You can use over the counter sprays or lozenges for sore throat symptoms. MAUREEN VILLAFUERTE MD Apr 18, 2018 18:22
--- NOTE | 2018-04-18 19:38 | RADIOLOGY IMAGING REPORT ---
FACILITY: [facility] [place] PATIENT NAME: Neo Diaz : 1970 MR: [id number] V: [id number] EXAM DATE: ORDERING PHYSICIAN: MAUREEN VILLAFUERTE TECHNOLOGIST: Location: [facility] [place] Patient: Neo Diaz : 1970 Visit/Account:[id number] Date of Sevice: 04/18/2018 2 VIEWS CHEST INDICATION: Congestion and sore throat. COMPARISON: 03/30/2018. FINDINGS: The lateral aspect the right lung is not imaged on the frontal view. Cardiomediastinal silhouette and pulmonary vessels within normal limits. There is no focal infiltrate or lobar consolidation. There is no pneumothorax or pleural effusion. Stable, calcified granuloma seen in the left upper lobe. No other nodules. Upper abdomen is unremarkable. No acute bony abnormality. IMPRESSION: 1. No acute cardiopulmonary process. Report Dictated By: Jim Sutton at 04/18/2018 7:31 PM Report E-Signed By: Jim Sutton at 04/18/2018 7:34 PM WSN:[id number]
[2018-04-18] MEDS ORDERED: ROBC PO (19:53)
[2018-04-18] MEDS ORDERED: guaiFENesin/CODEINE 5 ML UDBTL PO ONE (19:55)
[2018-04-18 20:00] VITALS: BP 90/65
== END 2018-04-18 20:07 | disposition home or self-care (01) ==
LOC: ER 18:53
DX: B34.9 Viral infection, unspecified (principal)
CPT/HCPCS: 71046; 87081; 87502; 87880; 99283

== ENCOUNTER → 2018-05-09 | Outpatient (CLI) | payer MEDICAID ==
[2018-03-02 12:26] VITALS: BMI 55.8
[~2018-05-09] MED LIST changes: +ROBC PO
[2018-05-09 09:51] LABS: PLATELET COUNT, AUTOMATED 302 K/uL (150-450)
== END ==
LOC: LAB 09:23
PROVIDERS: ATTEND Internal Medicine
DX: E11.9 Type 2 diabetes mellitus without complications (principal); J44.9 Chronic obstructive pulmonary disease, unspecified; E66.01 Morbid (severe) obesity due to excess calories; R60.9 Edema, unspecified
CPT/HCPCS: 36415; 82040; 82247; 82310; 82374; 82435; 82565; 82947; 83735; 84075; 84132; 84155; 84295; 84450; 84460; 84520; 85025

== ENCOUNTER → 2018-05-11 | Outpatient (CLI) | payer MEDICAID ==
[2018-03-02 12:26] VITALS: BMI 55.8
== END ==
LOC: RESP 00:57
PROVIDERS: ATTEND Internal Medicine
DX: J44.9 Chronic obstructive pulmonary disease, unspecified (principal); R53.1 Weakness; E11.9 Type 2 diabetes mellitus without complications; R74.8 Abnormal levels of other serum enzymes; F32.9 Major depressive disorder, single episode, unspecified
CPT/HCPCS: 94060; 94729

== ENCOUNTER → 2018-06-13 | Outpatient (CLI) | payer MEDICAID ==
[2018-03-02 12:26] VITALS: BMI 55.8
[2018-06-13 13:30] LABS: PLATELET COUNT, AUTOMATED 314 K/uL (150-450)
== END ==
LOC: LAB 13:16
PROVIDERS: ATTEND Internal Medicine
DX: E11.9 Type 2 diabetes mellitus without complications (principal); J43.8 Other emphysema; R60.0 Localized edema; E87.3 Alkalosis
CPT/HCPCS: 36415; 82040; 82247; 82310; 82374; 82435; 82565; 82728; 82947; 83036; 83540; 83550; 84075; 84132; 84155; 84295; 84450; 84460; 84520; 85025